=== PATIENT | female | born 1945 | race African-American/Black ===

== ENCOUNTER 2019-04-13 11:35 | Inpatient (IN) | payer MEDICARE, MEDICAID ==
[~2019-04-13] VITALS: Ht 167.6 cm; Wt 97.4 kg
[2019-04-13 12:54] VITALS: BP 140/79
[2019-04-13 13:43] LABS: ANION GAP 12.5 mmol/L (8-16); CALCIUM 8.8 mg/dL (8.5-10.1); CARBON DIOXIDE 28.1 mmol/L (21.0-32.0); CREATININE - SERUM 1.3 mg/dL (0.6-1.3); POTASSIUM - SERUM 4.6 mmol/L (3.5-5.1)
[2019-04-13 13:45] LABS: BASOPHILS 0.3 % (0-2); EOSINOPHILS 2.4 % (0-7); HEMATOCRIT 26.9 % (36.0-48.0); IMMATURE GRANULOCYTES 0.3 % (0-5); LYMPHOCYTES 12.4 % (15-50); MCHC 27.9 g/dL (31.0-37.0); MCV 70.6 fL (80.0-100.0); MEAN PLATELET VOLUME 9.5 fL (7.4-10.4); MONOCYTES 14.1 % (2-11); NEUTROPHILS 70.5 % (40-80); PLATELET COUNT 443 10x3/uL (130-400); RBC 3.81 10x6/uL (4.00-5.40); RDW 18.4 % (11.5-14.5); WBC 14.4 10x3/uL (4.8-10.8)
[2019-04-13 13:47] LABS: % SATURATION 3 % (15-55); HEMOGLOBIN 7.5 g/dL (12-16); IRON 11 ug/dl (35-150); MCH 19.7 pg (26.0-34.0); TOTAL IRON BIND CAPACITY 323 ug/dl (260-445); UNSAT IRON BIND CAPACITY 312 ug/dl (150-375)
[2019-04-13 13:51] LABS: ALBUMIN 2.6 g/dL (3.4-5.0); BILIRUBIN - TOTAL 0.17 mg/dL (0.2-1.3); DIGOXIN 1.27 ng/mL (0.90-2.00); PROTEIN - SERUM 7.9 g/dL (6.4-8.2)
--- NOTE | 2019-04-13 14:03 | NUR ---
VASCULAR ACCESS NURSE OBTAINED IV SITE TO PT LEFT WRIST, START NEXT DOSE ON PT HOME MEDS PT STATED SHE HAS ALREADY TAKEN MEDS AT HOME. START ABX CONTINUE WITH PLAN OF CARE
[2019-04-13 14:08] VITALS: BMI 35.1
[2019-04-13 14:18] LABS: FERRITIN 113 ng/mL (3-244)
--- NOTE | 2019-04-13 14:54 | NUR ---
STARTED BLOOD INFUSION PT TOLERATING WELL CONTINUE TO MONITOR
--- NOTE | 2019-04-13 20:00 | NUR ---
A/O WITH NO SIGNS OF DISTRESS. IV TO THE LT WRIST WITH NO REDNESS OR SWELLLING NOTED. SECOND UNIT OF BLOOD STILL INFUSING. OBTAINED CONSENTS AND PLACED IN CHART FOR PROCEDURE TOMMORROW. CALLED NUNO FOR PAIN MED DUE TO PT COMPLAINING OF ABDOMENAL PAIN. DENIES NO OTHER NEEDS AT THIS TIME. CONTINUE PLAN OF CARE.
[2019-04-13 20:31] VITALS: BP 154/50
--- NOTE | 2019-04-13 21:15 | NUR ---
SECOND UNIT OF BLOOD FINISHED INFUSING. VS ARE STABLE AND DENIES NO SYMPTOMS. STARTED IRON INFUSION. DENIES NO NEEDS AT THIS TIME. CONTINUE PLAN OF CARE.
[2019-04-13 23:23] LABS: APPEARANCE CLEAR (CLEAR); COLOR YELLOW (YELLOW)
[2019-04-13 23:24] LABS: BILIRUBIN NEGATIVE (NEGATIVE); GLUCOSE NEGATIVE (NEGATIVE); KETONE NEGATIVE (NEGATIVE); NITRITE NEGATIVE (NEGATIVE); PROTEIN NEGATIVE (NEGATIVE); SPECIFIC GRAVITY 1.015 (1.005-1.020); UROBILINOGEN NORMAL (NORMAL)
[2019-04-14 00:22] VITALS: BP 130/52
[2019-04-14 03:58] VITALS: BP 137/59
[2019-04-14 06:24] LABS: BASOPHILS 0.3 % (0-2); EOSINOPHILS 1.5 % (0-7); HEMATOCRIT 30.1 % (36.0-48.0); IMMATURE GRANULOCYTES 0.3 % (0-5); LYMPHOCYTES 13.1 % (15-50); MCHC 30.2 g/dL (31.0-37.0); MEAN PLATELET VOLUME 9.6 fL (7.4-10.4); MONOCYTES 14.3 % (2-11); NEUTROPHILS 70.5 % (40-80); PLATELET COUNT 360 10x3/uL (130-400); RBC 4.14 10x6/uL (4.00-5.40); RDW 18.9 % (11.5-14.5); WBC 13.7 10x3/uL (4.8-10.8)
[2019-04-14 06:27] LABS: INR 1.37 (0.85-1.17); PROTIME 16.3 SECONDS (11.6-15.0)
[2019-04-14 06:28] LABS: APTT 45.3 SECONDS (22.8-39.4)
[2019-04-14 06:33] LABS: HEMOGLOBIN 9.1 g/dL (12-16); MCV 72.7 fL (80.0-100.0)
[2019-04-14 06:41] LABS: CALCIUM 8.4 mg/dL (8.5-10.1); CARBON DIOXIDE 29.1 mmol/L (21.0-32.0); CREATININE - SERUM 0.9 mg/dL (0.6-1.3); MAGNESIUM - SERUM 1.9 mg/dL (1.8-2.4); PHOSPHOROUS 3.8 mg/dL (2.5-4.9); POTASSIUM - SERUM 4.1 mmol/L (3.5-5.1); THYROID STIMULATING HORMONE 1.65 uIU/mL (0.36-3.74)
--- NOTE | 2019-04-14 07:31 | NUR ---
PT RESTING IN BED. NO SIGNS OF DISTRESS, IV TO LEFT WRIST PATENT NO REDNESS OR TENDERNESS. AWAITING EGD TODAY. DENIES ANY FURTHER NEED AT THIS TIME. CALL LIGHT IN REACH. BED LOW POSITION. NO FAMILY AT BEDSIDE AT THIS TIME. NO FAMILY AT BEDSIDE AT THIS TIME.
[2019-04-14 09:13] VITALS: BP 143/52
[2019-04-14 12:26] VITALS: BP 140/53
[2019-04-14 14:05] VITALS: BMI 35.0
--- NOTE | 2019-04-14 14:41 | MORECARE ---
CASE MANAGEMENT DISCHARGE SUMMARY PATIENT: GRZEGORZ DURÁN UNIT: [id number] ADM DATE: 04/13/19 AGE: 73 : 46 SEX: F ROOM/BED: D.2237 AUTHOR: LETICIA,DOC PHYSICIAN: REFERRING PHYSICIAN: YENNY STRINGER MD DATE OF SERVICE: 04/14/19 Discharge Plan Patient Name: GRZEGORZ DURÁN Facility: [facility]:[place] : 1945 Planned Disposition: Home Anticipated Discharge Date: Discharge Date: Expected LOS: Initial Reviewer: [email or web address] Initial Review Date: 04/14/2019 Generated: 04/14/19 3:41 pm Comments DCP- Discharge Planning Updated by [email or web address]: Divina Hastings on 04/14/19 1:[address] Patient Name: GRZEGORZ DURÁN Admission Status: Elective Accout number: [id number] Admission Date: 04-13-2019 : 1945 Admission Diagnosis: Attending: YENNY STRINGER Current LOS: 1 Anticipated DC Date: Planned Disposition: Home Primary Insurance: WELL[employer] MEDICARE ADV Discharge Planning Comments: CM met with patient to complete initial dc planning assessment. CM educated patient on the CM role and verbal consent given by patient to complete assessment. Patient lives at home with her sister. At discharge she plans to return home and feels this is a safe discharge. CM discussed availability of home health, rehab and additional DME. Patient denied known discharge needs at this time. CM will continue to follow and assist with dc plans/needs. Cartography Teacher: Divina Hastings DCPIA - Discharge Planning Initial Assessment Updated by [email or web address]: Divina Hastings on 04/14/19 2:35 pm * Is the patient Alert and Oriented? Yes * How many steps to enter\exit or inside your home? 5/0 * PCP Dr. Raymond * Pharmacy [facility] [address] * Preadmission Environment Home with Family * ADLs Independent * Equipment Cane Other * Other Equipment Built in shower bench in shower * List name and contact numbers for known caregivers / representatives who currently or will assist patient after discharge: Claire Gusman - sister - [phone] * Verbal permission to speak to the caregivers and representatives has been obtained from the patient. Yes * Community resources currently utilized None * Additional services required to return to the preadmission environment? No * Can the patient safely return to the preadmission environment? Yes * Has this patient been hospitalized within the prior 30 days at any hospital? No Patient Name: GRZEGORZ DURÁN Page [phone] at 1441 All edits/amendments must be made on the electronic document DICTATION DATE: 04/14/191440 MANAGER DISCOVERY: LUCY 04/14/19 1441 RPT#: [id number] DC DATE: STATUS: ADM IN [facility] [address] [place] [address] END OF REPORT
[2019-04-14 16:22] VITALS: BP 139/49
[2019-04-14 19:30] VITALS: BP 145/70
[2019-04-15 00:30] VITALS: BP 138/67
--- NOTE | 2019-04-15 00:31 | NUR ---
ASSESSMENT PER FLOWSHEET. IV PATENT LEFT WRIST OF NS AT 75CC'S/HR PROTONIX GTT AT 10CC'S/HR. SITE CLEAR UPWA=104. NO COVERAGE NEEDED. RESTING QUIETLY DENIES NEEEDS.
[2019-04-15 04:30] VITALS: BP 124/60
[2019-04-15 07:07] LABS: CALCIUM 8.5 mg/dL (8.5-10.1); CARBON DIOXIDE 27.7 mmol/L (21.0-32.0); CREATININE - SERUM 0.9 mg/dL (0.6-1.3); MAGNESIUM - SERUM 1.8 mg/dL (1.8-2.4); PHOSPHOROUS 3.4 mg/dL (2.5-4.9)
[2019-04-15 07:27] LABS: BASOPHILS 0.4 % (0-2); EOSINOPHILS 2.4 % (0-7); HEMOGLOBIN 8.5 g/dL (12-16); IMMATURE GRANULOCYTES 0.4 % (0-5); LYMPHOCYTES 14.2 % (15-50); MCH 21.4 pg (26.0-34.0); MCHC 29.3 g/dL (31.0-37.0); MCV 72.9 fL (80.0-100.0); MEAN PLATELET VOLUME 9.7 fL (7.4-10.4); MONOCYTES 17.1 % (2-11); NEUTROPHILS 65.5 % (40-80); PLATELET COUNT 361 10x3/uL (130-400); RBC 3.98 10x6/uL (4.00-5.40); RDW 19.5 % (11.5-14.5); WBC 14.1 10x3/uL (4.8-10.8)
--- NOTE | 2019-04-15 07:54 | NUR ---
PT RESTING IN BED WITH EYES OPEN, EASILY AROUSED TO SPEECH, ALERT AND ORIENTED. IV LOCATED TO LEFT WRIST RUNNING NS @ 75, AND PROTONIX AT 10ML/HR. NO S/S OF DISTRESS NOTED AT THIS TIME, DENIES NEEDS, WILL CONT TO MONITOR.
[2019-04-15 07:59] LABS: ANION GAP 12.9 mmol/L (8-16); POTASSIUM - SERUM 3.6 mmol/L (3.5-5.1)
[2019-04-15 09:02] VITALS: BP 143/53
[2019-04-15 13:07] VITALS: BP 145/75
[2019-04-15 16:45] VITALS: BP 145/71; BP 170/61
--- NOTE | 2019-04-15 19:00 | NUR ---
BEDSIDE REPORT RECEIVED AND CARE OF PT ASSUMED. PT LYING IN HIGH LYONS'S POSITION VISITING WITH FAMILY MEMBERS. IV TO LEFT WRIST PATENT WITH NS INFUSING AT 75 ML/HR, AND PROTONIX INFUSING AT 10 ML/HR. WILL MONITOR FOR NEEDS.
[2019-04-15 19:30] VITALS: BP 170/67
[2019-04-16] VITALS: BP 123/59
[2019-04-16 04:00] VITALS: BP 157/65
--- NOTE | 2019-04-16 04:36 | NUR ---
CHANGED OUT ALL IV TUBINGS PER PROTOCAL.
--- NOTE | 2019-04-16 05:26 | NUR ---
LEFT WRIST SWELLING WHERE IV SITED. REMOVED WITH CATHETER TIP INTACT. RE-SITED TO RIGHT HAND USING 22 GUAGE CATHETER. IV FLUIDS RE-STARTED.
--- NOTE | 2019-04-16 05:27 | NUR ---
GAVE MORPHINE IVP FOR C/O ARTHRITIS PAIN IN RIGHT FOOT. ELEVATED FOOT ON PILLOW. WILL MONITOR FOR EFFECTIVENESS.
[2019-04-16 06:44] LABS: BASOPHILS 0.2 % (0-2); HEMATOCRIT 28.2 % (36.0-48.0); HEMOGLOBIN 8.3 g/dL (12-16); IMMATURE GRANULOCYTES 0.4 % (0-5); LYMPHOCYTES 10.9 % (15-50); MCH 21.7 pg (26.0-34.0); MCHC 29.4 g/dL (31.0-37.0); MCV 73.6 fL (80.0-100.0); MEAN PLATELET VOLUME 9.6 fL (7.4-10.4); MONOCYTES 14.1 % (2-11); NEUTROPHILS 72.4 % (40-80); PLATELET COUNT 323 10x3/uL (130-400); RBC 3.83 10x6/uL (4.00-5.40); RDW 19.9 % (11.5-14.5); WBC 16.3 10x3/uL (4.8-10.8)
[2019-04-16 07:04] LABS: ANION GAP 13.2 mmol/L (8-16); CALCIUM 8.5 mg/dL (8.5-10.1); CARBON DIOXIDE 25.7 mmol/L (21.0-32.0); CREATININE - SERUM 0.9 mg/dL (0.6-1.3); MAGNESIUM - SERUM 1.7 mg/dL (1.8-2.4); PHOSPHOROUS 3.2 mg/dL (2.5-4.9); POTASSIUM - SERUM 3.9 mmol/L (3.5-5.1)
[2019-04-16 08:07] VITALS: BP 133/58
[2019-04-16 12:58] VITALS: BP 142/60
[2019-04-16 13:07] VITALS: Ht 167.6 cm; Wt 97.4 kg
--- NOTE | 2019-04-16 13:51 | NUR ---
NUTRITION F/U PT TOLERATING FULL LIQUID DIET WITH GOOD INTAKE RECENT MEALS. WILL MONITOR DIET ADVANCEMENT, PO INTAKE. RD FOLLOWING
[2019-04-16 17:43] VITALS: BP 137/61
--- NOTE | 2019-04-16 19:00 | NUR ---
BEDSIDE REPORT RECEIVED AND CARE OF PT ASSUMED. PT LYING IN SUPINE POSITION WITH EYES CLOSED. IV TO RIGHT HAND PATENT WITH NS INFUSING AT 75 ML/HR, AND PROTONIX INFUSING AT 10 ML/HR. WILL MONITOR FOR NEEDS.
[2019-04-16 20:00] VITALS: BP 138/65
--- NOTE | 2019-04-16 20:38 | NUR ---
HS MEDICATIONS GIVEN. FSBS 179 REQUIRING COVERAGE WITH SLIDING SCALE...PT DECLINED INSULIN. WILL CONTINUE TO MONITOR FOR NEEDS.
[2019-04-17] VITALS: BP 121/71
[2019-04-17 04:00] VITALS: BP 112/46
[2019-04-17 07:17] LABS: BASOPHILS 0.2 % (0-2); EOSINOPHILS 1.3 % (0-7); HEMATOCRIT 28.4 % (36.0-48.0); HEMOGLOBIN 8.3 g/dL (12-16); IMMATURE GRANULOCYTES 0.6 % (0-5); LYMPHOCYTES 10.6 % (15-50); MCH 21.7 pg (26.0-34.0); MCHC 29.2 g/dL (31.0-37.0); MCV 74.3 fL (80.0-100.0); MEAN PLATELET VOLUME 9.5 fL (7.4-10.4); MONOCYTES 13.6 % (2-11); NEUTROPHILS 73.7 % (40-80); PLATELET COUNT 295 10x3/uL (130-400); RBC 3.82 10x6/uL (4.00-5.40); RDW 21.2 % (11.5-14.5)
[2019-04-17 07:23] LABS: CALC OSMOLALITY 284 mosm/kg (275-300); CALCIUM 8.3 mg/dL (8.5-10.1); CARBON DIOXIDE 26.8 mmol/L (21.0-32.0); CHLORIDE - SERUM 110 mmol/L (98-107); CREATININE - SERUM 0.7 mg/dL (0.6-1.3); GLUCOSE 121 mg/dL (74-106); MAGNESIUM - SERUM 1.7 mg/dL (1.8-2.4); PHOSPHOROUS 2.9 mg/dL (2.5-4.9); POTASSIUM - SERUM 3.7 mmol/L (3.5-5.1); SODIUM 144 mmol/L (136-145); UREA NITROGEN 5 mg/dL (7-18); eGFR NON AFRICAN AMERICAN 87 mL/min (90-120)
[2019-04-17 08:45] VITALS: BP 133/49
--- NOTE | 2019-04-17 10:43 | NUR ---
PT ALERT X 4. BREATH SOUNDS DIMINISHED TO RLL. IV TO RIGHT HAND, PATENT, DRESSING CDI. PT REPORTING PAIN OF 8/10 TO RIGHT FOOT, WILL MONITOR. BED LOW, CALL LIGHT IN REACH. NO OTHER NEEDS AT THIS TIME.
[2019-04-17 12:32] VITALS: BP 142/59
[2019-04-17 16:43] VITALS: BP 155/68
--- NOTE | 2019-04-17 19:00 | NUR ---
BEDSIDE REPORT RECEIVED AND CARE OF PT ASSUMED. PT LYING IN MID LYONS'S POSITION WITH EYES CLOSED. IV TO RIGHT HAND PATENT WITH NS INFUSING AT 75 ML/HR. PROTONIX INFUSING AT 10 ML/HR. WILL MONITOR FOR NEEDS.
[2019-04-17 19:57] VITALS: BP 112/58
--- NOTE | 2019-04-17 20:16 | NUR ---
HS MEDICATIONS GIVEN. FSBS 107 THIS CHECK REQUIRING NO COVERAGE PER SLIDING SCALE. WILL CONTINUE TO MONITOR FOR NEEDS.
[2019-04-18] MEDS ORDERED: PROTONIX40 MG PO (02:15)
[2019-04-18] MEDS ORDERED: ZOFRAN ODT4 MG/UDTAB PO (02:15)
[2019-04-18] MEDS ORDERED: BUMEX2 MG PO (02:16)
[2019-04-18] MEDS ORDERED: LANOXIN125 MCG PO (02:16)
[2019-04-18] MEDS ORDERED: GLUCOPHAGE1000 MG PO (02:16)
[2019-04-18] MEDS ORDERED: JANUVIA100 MG PO (02:17)
[2019-04-18] MEDS ORDERED: PRADAXA75 MG PO (02:17)
[2019-04-18] MEDS ORDERED: HYDROCHLOROTHIA25 MG PO (02:18)
[2019-04-18] MEDS ORDERED: DIOVAN320 MG PO (02:18)
[2019-04-18] MEDS ORDERED: NORVASC10 MG PO (02:19)
[2019-04-18] MEDS ORDERED: GLUCOTROL XL 1010 MG PO (02:19)
[2019-04-18] MEDS ORDERED: HYDRALAZINE HCL50 MG PO (02:19)
[2019-04-18] MEDS ORDERED: [UNRECOGNIZED DRUG - SUPPLY] (02:21)
--- NOTE | 2019-04-18 02:22 | NUR ---
PT NEEDS HOME MEDS REVIEWED AND RE-STARTED. SHE IS REQUESTING UPDRAFT TREATMENT AND BUMEX 2 MG PO SPECIFICALLY DUE TO FEELING LIKE SHE IS GETTING FLUID OVERLOAD. HOME MEDICATION RECONCILIATION COMPLETE AND REVIEWED. PT DID NOT HAVE UPDRAFT MEDICATION ON HER RECENT FILLED MEDICATION.
[2019-04-18 04:00] VITALS: BP 107/49
[2019-04-18 06:45] LABS: BASOPHILS 0.2 % (0-2); EOSINOPHILS 1.5 % (0-7); HEMATOCRIT 28.6 % (36.0-48.0); HEMOGLOBIN 8.4 g/dL (12-16); IMMATURE GRANULOCYTES 0.3 % (0-5); MCH 21.9 pg (26.0-34.0); MCHC 29.4 g/dL (31.0-37.0); MCV 74.7 fL (80.0-100.0); MEAN PLATELET VOLUME 9.6 fL (7.4-10.4); MONOCYTES 12.4 % (2-11); NEUTROPHILS 75.6 % (40-80); PLATELET COUNT 288 10x3/uL (130-400); RBC 3.83 10x6/uL (4.00-5.40); RDW 22.3 % (11.5-14.5); WBC 18.3 10x3/uL (4.8-10.8)
[2019-04-18 07:14] LABS: ANION GAP 12.8 mmol/L (8-16); CALCIUM 8.5 mg/dL (8.5-10.1); CARBON DIOXIDE 25.6 mmol/L (21.0-32.0); MAGNESIUM - SERUM 1.8 mg/dL (1.8-2.4); PHOSPHOROUS 2.6 mg/dL (2.5-4.9); POTASSIUM - SERUM 3.4 mmol/L (3.5-5.1)
[2019-04-18 07:16] LABS: CREATININE - SERUM 0.9 mg/dL (0.6-1.3)
[2019-04-18 07:59] VITALS: BP 136/64
--- NOTE | 2019-04-18 09:10 | NUR ---
PT ALERT X 4. BREATH SOUNDS CLEAR BILAT. IV TO RIGHT HAND, PATENT, DRESSING CDI. PT REPORTING PAIN OF 6/10, WILL MONITOR, PT DOES NOT WANT MEDICATION AT THIS TIME. FEET +2 EDEMA. BED LOW, CALL LIGHT IN REACH. NO OTHER NEEDS AT THIS TIME.
[2019-04-18 11:39] VITALS: BP 119/50
[2019-04-18 16:31] VITALS: BP 127/50
--- NOTE | 2019-04-18 19:00 | NUR ---
BEDSIDE REPORT RECEIVED AND CARE OF PT ASSUMED. PT SITTING UP ON SIDE OF BED WATCHING TV. IV TO RIGHT HAND PATENT WITH NS INFSUING AT 75 ML/HR. WILL MONITOR FOR NEEDS.
[2019-04-18 20:00] VITALS: BP 118/71
--- NOTE | 2019-04-18 20:00 | NUR ---
PT'S HEARTRATE IN 159 THIS CHECK. CALLED MD BANANA ROOM CUTTER AND RECEIVED ORDER TO GIVE .25 MG LANOXIN NOW AND RESTART HOME DOSE OF 0.125 DAILY TOMORROW. ALSO ORDER TO GIVE ONE TIME DOSE OF METOPROLOL 25 MG PO. CALLED [employer]CHOOL FRENCH TEACHER TO OVERRIDE MEDS.
--- NOTE | 2019-04-18 21:35 | NUR ---
HS MEDICATIONS GIVEN. WILL CONTINUE TO MONITOR FOR NEEDS.
[2019-04-19] VITALS (11 sets, daily range): BP systolic 126–161; BP diastolic 41–68
[2019-04-19 06:01] LABS: BASOPHILS 0.2 % (0-2); EOSINOPHILS 1.5 % (0-7); HEMATOCRIT 27.4 % (36.0-48.0); HEMOGLOBIN 7.9 g/dL (12-16); IMMATURE GRANULOCYTES 0.6 % (0-5); LYMPHOCYTES 10.4 % (15-50); MCH 21.6 pg (26.0-34.0); MCHC 28.8 g/dL (31.0-37.0); MCV 75.1 fL (80.0-100.0); MEAN PLATELET VOLUME 9.7 fL (7.4-10.4); MONOCYTES 11.4 % (2-11); NEUTROPHILS 75.9 % (40-80); PLATELET COUNT 301 10x3/uL (130-400); RBC 3.65 10x6/uL (4.00-5.40); WBC 15.2 10x3/uL (4.8-10.8)
[2019-04-19 06:25] LABS: ANION GAP 9.9 mmol/L (8-16); BILIRUBIN - TOTAL 0.34 mg/dL (0.2-1.3); CALCIUM 8.1 mg/dL (8.5-10.1); CARBON DIOXIDE 28.7 mmol/L (21.0-32.0); CREATININE - SERUM 0.8 mg/dL (0.6-1.3); POTASSIUM - SERUM 3.6 mmol/L (3.5-5.1); PROTEIN - SERUM 7.2 g/dL (6.4-8.2)
--- NOTE | 2019-04-19 10:42 | NUR ---
PATIENT STATES SHE HAS A FEVER BLISTER TO THE TOP MID LIP. BLOOD STARTED AT THIS TIME. CL IN REACH. PHONE IN REACH. PATIENT SAYS SHE'D JUST LIKE TO REST. WCTM
--- NOTE | 2019-04-19 12:47 | NUR ---
OT NOTE: PT LIEING IN BED. REPORTED PAIN AND SWELLING IN R FOOT, BUT STATES THAT SHE CAN PUT A LITTLE WT THROUGH IT NOW, WHICH SHE HAS BEEN UNABLE TO DO BECAUSE OF PAIN. PT ABLE TO DEMONSTRATE SIT TO STAND WITH CGA; ABLE TO DEMONSTRATE TRANSFER FROM BED TO BS COMMODE WITH SBA. PT ABOUT TO RECEIVE BLOOD THEREFORE WILL REMAIN IN BED VS TRANSFER TO CHAIR. SATISH FENG, OTR/L
--- NOTE | 2019-04-19 16:36 | NUR ---
SECOND UNIT OF BLOOD STARTED. VS STABLE. WCTM
--- NOTE | 2019-04-19 16:40 | NUR ---
IV THERAPY IN RIGHT HAND LEAKING. IV THERAPY RESTARTED IN RIGHT FOREARM. ONE ATTEMPT. RIGHT HAND IV DC'ED WITH TIP INTACT.
--- NOTE | 2019-04-19 18:15 | NUR ---
OT NOTE: PT COMPLETED EOB SITTING WITH SPV. PT COMPLETED SIT TO SUPINE WITH SBA. THANK YOU, ARNEL RILEY
[2019-04-20 01:15] VITALS: BP 139/79
[2019-04-20 04:44] VITALS: BP 148/71
--- NOTE | 2019-04-20 06:23 | NUR ---
I have reviewed this patient and I concur with the Shift Assessment completed by the Licensed Practical Nurse today this shift.
[2019-04-20 06:44] LABS: ANION GAP 11.1 mmol/L (8-16); BILIRUBIN - TOTAL 0.39 mg/dL (0.2-1.3); CALCIUM 8.2 mg/dL (8.5-10.1); CARBON DIOXIDE 27.3 mmol/L (21.0-32.0); CREATININE - SERUM 0.9 mg/dL (0.6-1.3); POTASSIUM - SERUM 3.4 mmol/L (3.5-5.1); PROTEIN - SERUM 7.2 g/dL (6.4-8.2)
[2019-04-20 07:05] LABS: BASOPHILS 0.2 % (0-2); EOSINOPHILS 1.5 % (0-7); HEMATOCRIT 31.9 % (36.0-48.0); IMMATURE GRANULOCYTES 0.4 % (0-5); LYMPHOCYTES 8.8 % (15-50); MCH 23.1 pg (26.0-34.0); MCHC 30.1 g/dL (31.0-37.0); MCV 76.9 fL (80.0-100.0); MEAN PLATELET VOLUME 10.1 fL (7.4-10.4); NEUTROPHILS 77.1 % (40-80); PLATELET COUNT 287 10x3/uL (130-400); RBC 4.15 10x6/uL (4.00-5.40); RDW 23.8 % (11.5-14.5); WBC 14.1 10x3/uL (4.8-10.8)
[2019-04-20 07:10] LABS: HEMOGLOBIN 9.6 g/dL (12-16)
--- NOTE | 2019-04-20 07:10 | NUR ---
PT RESTING IN BED. NO SIGNS OF DISTRESS. IV TO RIGHT FORARM PATENT NO REDNESS OR TENDERNESS. DENIES ANY FURTHER NEED AT THIS TIME. CALL LIGHT IN REACH. BED LOW POSITION. NO FAMILY AT BEDSIDE AT THIS TIME.
[2019-04-20 08:35] VITALS: BP 149/68
[2019-04-20 12:15] VITALS: BP 166/91
[2019-04-20 16:51] VITALS: BP 133/74
--- NOTE | 2019-04-20 17:51 | NUR ---
OT NOTE: PT REPORTED FEELING LESS PAIN IN R LE TODAY. PERFORMED SIT TO STAND AND TRANSFER WITH MIN ASSIST. ASKED IF PT WANTED TO SIT UP IN CHAIR AND SHE STATED NO BECAUSE SHE SITS UP ON EOB THROUGHOUT THE DAY. SHE IS INDEP WITH ALL BED MOB; SET UP WITH FEEDING AND SIMPLE GROOMING AND MIN ASSIST WITH TOILETING. SATISH FENG, OTR/L
--- NOTE | 2019-04-20 18:16 | NUR ---
I have reviewed this patient and I concur with the Shift Assessment completed by the Licensed Practical Nurse today this shift.
--- NOTE | 2019-04-20 19:25 | NUR ---
OT NOTE: PT COMPLETED SUPINE TO SIT WITH SBA. PT COMPLETED SIT TO STAND WITH SBA/CGA WITH CANE. PT COMPLETED FACE WASH WITH SETUP. THANK YOU, ARNEL RILEY
[2019-04-20 20:48] VITALS: BP 136/80
[2019-04-21 00:59] VITALS: BP 155/59
--- NOTE | 2019-04-21 05:05 | NUR ---
1944) REC'D. CHGE OF SHIFT WALKING ROUNDS SITTING ON SIDE OF BED ASSISTED TO BEDSIDE CHAIR FEET ELEVATED INSTRUCTED BY TO HELP REDUCE SWELLING INFEET.VOICES UBDERSTANDING.WILL CONTINUE TO MONITOR FOR ANY CHGES. AND FOLLOW CURRENT PLAN OF CARE.
[2019-04-21 05:12] VITALS: BP 140/86
--- NOTE | 2019-04-21 06:05 | NUR ---
I have reviewed this patient and I concur with the Shift Assessment completed by the Licensed Practical Nurse today this shift.
[2019-04-21 06:32] LABS: ANION GAP 9.9 mmol/L (8-16); BILIRUBIN - TOTAL 0.34 mg/dL (0.2-1.3); CALCIUM 8.3 mg/dL (8.5-10.1); CARBON DIOXIDE 28.4 mmol/L (21.0-32.0); CREATININE - SERUM 0.8 mg/dL (0.6-1.3); POTASSIUM - SERUM 3.3 mmol/L (3.5-5.1); PROTEIN - SERUM 7.2 g/dL (6.4-8.2)
[2019-04-21 06:41] LABS: BASOPHILS 1.1 % (0-2); EOSINOPHILS 1.9 % (0-7); HEMATOCRIT 32.3 % (36.0-48.0); HEMOGLOBIN 9.6 g/dL (12-16); IMMATURE GRANULOCYTES 0.4 % (0-5); LYMPHOCYTES 12.9 % (15-50); MCH 23.1 pg (26.0-34.0); MCHC 29.7 g/dL (31.0-37.0); MCV 77.8 fL (80.0-100.0); MEAN PLATELET VOLUME 9.7 fL (7.4-10.4); NEUTROPHILS 69.7 % (40-80); PLATELET COUNT 293 10x3/uL (130-400); RBC 4.15 10x6/uL (4.00-5.40); RDW 24.9 % (11.5-14.5); WBC 17.1 10x3/uL (4.8-10.8)
[2019-04-21 08:37] VITALS: BP 150/81
[2019-04-21 11:59] VITALS: BP 158/90
[2019-04-21 13:53] LABS: APPEARANCE CLEAR (CLEAR); BILIRUBIN NEGATIVE (NEGATIVE); COLOR YELLOW (YELLOW); GLUCOSE NEGATIVE (NEGATIVE); KETONE NEGATIVE (NEGATIVE); NITRITE NEGATIVE (NEGATIVE); PROTEIN NEGATIVE (NEGATIVE); UROBILINOGEN NORMAL (NORMAL)
--- NOTE | 2019-04-21 14:01 | NUR ---
NUTRITION F/U DIET ADVANCED TO DIABETIC, 50 TO 100% INTAKE RECENT MEALS. WILL CONTINUE TO PROVIDE CURRENT DIET, MONITOR PO INTAKE. RD FOLLOWING
--- NOTE | 2019-04-21 15:26 | NUR ---
OT NOTE: PT UP IN CHAIR. SHE WAS IN [facility] AND SHE HAD ON HER WIG. ASSISTED TO BATHROOM WITH CANE AND CGA. TOILETING WITH USE OF GRAB BAR. PERFORMED IN ROOM AMBULATION WITH CAN. PT IS UNSTEADY WITH CANE BUT REFUSES TO USE WALKER. OFFERED WALKER SEVERAL TIMES THROUGHOUT TMT BUT PT REFUSED IT TODAY. CONT WITH EDEMA IN R FOOT. INDEP WITH GROOMING AND FEEDING.. SATISH FENG, OTR/L
--- NOTE | 2019-04-21 15:48 | NUR ---
OT NOTE: PT COMPLETED ADL MOB WITH CANE REQUIRED CGA. PT COMPLETED EOB SITTING WITH SPV. PT COMPLETED TOILETING TASKS WITH SPV. THANK YOU, ARNEL RILEY
[2019-04-21 16:23] VITALS: BP 141/78
[2019-04-21 17:34] LABS: MAGNESIUM - SERUM 1.2 mg/dL (1.8-2.4); THYROID STIMULATING HORMONE 1.73 uIU/mL (0.36-3.74)
[2019-04-21 21:12] VITALS: BP 143/71
[2019-04-22 01:47] VITALS: BP 157/68
[2019-04-22 06:22] VITALS: BP 141/76
[2019-04-22 06:44] LABS: HEMATOCRIT 33.3 % (36.0-48.0); HEMOGLOBIN 9.9 g/dL (12-16); MCH 23.4 pg (26.0-34.0); MCHC 29.7 g/dL (31.0-37.0); MCV 78.7 fL (80.0-100.0); MEAN PLATELET VOLUME 10.1 fL (7.4-10.4); PLATELET COUNT 318 10x3/uL (130-400); RBC 4.23 10x6/uL (4.00-5.40); RDW 26.1 % (11.5-14.5)
[2019-04-22 06:59] LABS: ANION GAP 10.7 mmol/L (8-16); BILIRUBIN - TOTAL 0.23 mg/dL (0.2-1.3); CALCIUM 8.2 mg/dL (8.5-10.1); CARBON DIOXIDE 27.9 mmol/L (21.0-32.0); CREATININE - SERUM 0.8 mg/dL (0.6-1.3); POTASSIUM - SERUM 3.6 mmol/L (3.5-5.1); PROTEIN - SERUM 7.6 g/dL (6.4-8.2)
[2019-04-22 07:31] LABS: EOSINOPHILS 2 % (0-7); LYMPHOCYTES 18 % (15-50); MONOCYTES 8 % (2-11); NEUTROPHILS 64 % (40-80); PLATELET ESTIMATE NORMAL
--- NOTE | 2019-04-22 09:36 | NUR ---
PT ALERT X 4. BREATH SOUNDS CLEAR BILAT. IV TO RIGHT FOREARM, PATENT, DRESSING CDI. PT REPORTING PAIN OF 6/10, PT DOES NOT WANT MEDICATION AT THIS TIME. +2 EDEMA TO BOTH FEET. PT SITTING UP IN CHAIR. BED LOW, CALL LIGHT IN REACH. NO OTHER NEEDS AT THIS TIME.
[2019-04-22 12:44] VITALS: BP 118/71
--- NOTE | 2019-04-22 14:59 | NUR ---
OT NOTE: PT COMPLETD SIT TO STAND WIT SBA. PT COMPLETED ADL MOB TASKS WITH SBA/CGA. PT COMPLETED UE AROM AXS. THANK YOU, ARNEL RILEY
--- NOTE | 2019-04-22 15:16 | NUR ---
OT NOTE: PT HAS BEEN VERY RESISTANT TO USE A WALKER. HER MOBILITY WITH CANE IS UNSAFE IN ROOM AND FOR LONGER DISTANCES. PT REFUSED TO USE WALKER TO GO INTO BATHROOM, HOWEVER, AGREED TO AMB INTO HALLWAY WITH IT.. SHE WAS MUCH SAFER AND MORE STEADY, AND WAS ABLE TO AMB GREATER THAN 75' WITH USE OF WALKER. SATISH FENG, OTR/L
[2019-04-22 15:39] VITALS: BP 129/57
[2019-04-22] MEDS ORDERED: BETAPACE 80 MG80 MG PO (20:47)
[2019-04-22 21:23] VITALS: BP 116/74
[2019-04-23 01:14] VITALS: BP 162/89
[2019-04-23 05:08] LABS: BASOPHILS 0.5 % (0-2); EOSINOPHILS 1.8 % (0-7); HEMATOCRIT 33.4 % (36.0-48.0); IMMATURE GRANULOCYTES 0.4 % (0-5); LYMPHOCYTES 12.9 % (15-50); MCH 23.8 pg (26.0-34.0); MCHC 29.9 g/dL (31.0-37.0); MCV 79.5 fL (80.0-100.0); MEAN PLATELET VOLUME 9.5 fL (7.4-10.4); MONOCYTES 12.6 % (2-11); NEUTROPHILS 71.8 % (40-80); PLATELET COUNT 279 10x3/uL (130-400); WBC 17.2 10x3/uL (4.8-10.8)
[2019-04-23 05:36] LABS: ALBUMIN 1.9 g/dL (3.4-5.0); ANION GAP 8.1 mmol/L (8-16); BILIRUBIN - TOTAL 0.3 mg/dL (0.2-1.3); CARBON DIOXIDE 30.2 mmol/L (21.0-32.0); CREATININE - SERUM 0.8 mg/dL (0.6-1.3); POTASSIUM - SERUM 3.3 mmol/L (3.5-5.1); PROTEIN - SERUM 7.5 g/dL (6.4-8.2)
[2019-04-23 06:01] VITALS: BP 170/84
--- NOTE | 2019-04-23 06:18 | NUR ---
POTASSIUM 3.3 - GAVE POTASSIUM 40 MEQ PO PER ELECTROLYTE PROTOCOL. RECHECK POTASSIUM IN 4 HOURS.
--- NOTE | 2019-04-23 07:15 | NUR ---
RIGHT FA IV INFILTRATED. DC'D RIGHT FA 20G IV WITH CATH INTACT. PLACED 22G IV IN RIGHT HAND ON FIRST ATTEMPT. PT TOLERATED PROCEDURE WELL.
[2019-04-23 07:41] VITALS: BP 145/69
[2019-04-23 11:17] LABS: INR 1.36 (0.85-1.17); PROTIME 16.2 SECONDS (11.6-15.0)
[2019-04-23 11:18] LABS: APTT 50.9 SECONDS (22.8-39.4)
--- NOTE | 2019-04-23 11:35 | NUR ---
EXPLAINED IVC FILTER PLACEMENT TO PT AND FAMILY AT BEDSIDE. ALL QUESTIONS ANSWERED. STATED TO PT SHE IS TO BE NPO UNTIL AFTER PROCEDURE AND SHE AND FAMILY BOTH VERBALIZED UNDERSTANDING. CONSENTS FOR PROCEDURE SIGNED.
--- NOTE | 2019-04-23 13:19 | MORECARE ---
CASE MANAGEMENT DISCHARGE SUMMARY PATIENT: GRZEGORZ DURÁN UNIT: [id number] ADM DATE: 04/13/19 AGE: 73 : 46 SEX: F ROOM/BED: D.2237 AUTHOR: CHELSI KELLY PHYSICIAN: REFERRING PHYSICIAN: YENNY STRINGER MD DATE OF SERVICE: 04/23/19 Discharge Plan Patient Name: GRZEGORZ DURÁN Facility: [facility]:[place] : 1945 Planned Disposition: Home Anticipated Discharge Date: Discharge Date: Expected LOS: Initial Reviewer: [email or web address] Initial Review Date: 04/14/2019 Generated: 04/23/19 2:18 pm Comments DCP- Discharge Planning Updated by [email or web address]: Diivna Hastings on 04/23/19 12:[address] Called to the room by patient's sister. Patient is sitting in the chair. Patient's sister states they want to know how to get transferred to [facility]. I asked her why she requests a transfer and she states that her "heart doctor is at [facility]." I informed her that she would need an accepting physician at [facility] and it would also be a lateral transfer and she would be responsible for the transportation if accepted. They do not request a transfer at this time. CM will continue to follow and assist with discharge planning/needs. DCP- Discharge Planning Updated by [id number]: Divina Hastings on 04/14/19 1:[address] Patient Name: GRZEGORZ DURÁN Admission Status: Elective Accout number: [id number] Admission Date: 04-13-2019 : 1945 Admission Diagnosis: Attending: YENNY STRINGER Current LOS: 1 Anticipated DC Date: Planned Disposition: Home Primary Insurance: WE[employer] MEDICARE ADV Discharge Planning Comments: CM met with patient to complete initial dc planning assessment. CM educated patient on the CM role and verbal consent given by patient to complete assessment. Patient lives at home with her sister. At discharge she plans to return home and feels this is a safe discharge. CM discussed availability of home health, rehab and additional DME. Patient denied known discharge needs at this time. CM will continue to follow and assist with dc plans/needs. Health And Wellness Coach: Divina Hastings DCPIA - Discharge Planning Initial Assessment Updated by [email or web address]: Divian Hastings on 04/14/19 2:35 pm * Is the patient Alert and Oriented? Yes * How many steps to enter\\exit or inside your home? 5/0 * PCP Dr. Raymond * Pharmacy [facility] [address] * Preadmission Environment Home with Family * ADLs Independent * Equipment Cane Other * Other Equipment Built in shower bench in shower * List name and contact numbers for known caregivers / representatives who currently or will assist patient after discharge: Claire Gusman [facility] [phone] * Verbal permission to speak to the caregivers and representatives has been obtained from the patient. Yes * Community resources currently utilized None * Additional services required to return to the preadmission environment? No * Can the patient safely return to the preadmission environment? Yes * Has this patient been hospitalized within the prior 30 days at any hospital? No Last DP export: 04/14/19 1:41 Patient Name: GRZEGORZ DURÁN Page [id number] at 1319 All edits/amendments must be made on the electronic document DICTATION DATE: 04/23/19 131 ARTIFICIAL PLASTIC EYE MAKER: LUCY 04/23/19 1318 RPT#: [id number] [place] DATE: STATUS: ADM IN [facility] [address] [place] [address] END OF REPORT
--- NOTE | 2019-04-23 13:25 | NUR ---
PT TAKEN FOR PROCEDURE VIA BED.
--- NOTE | 2019-04-23 13:47 | NUR ---
OT NOTE: HOLD SECONDARY TO PT PLACED ON BEDREST. SATISH FENG, OTR/L
--- NOTE | 2019-04-23 14:21 | NUR ---
I have reviewed this patient and I concur with the Shift Assessment completed by the Licensed Practical Nurse today this shift.
--- NOTE | 2019-04-23 14:22 | NUR ---
PT RETURNED FROM IR VIA BED. IR NURSE STATES THEY WERE UNABLE TO DO IVC FILTER PLACEMENT D/T PT GOING INTO AFIB IN THE 140'S. SHE STATES THEY WILL CONSULT CARDIOLOGY AND PUT IN AN ORDER FOR AN EKG. THEY ALSO STATED THEY SPOKE WITH DR. ACEVEDO. TELEMETRY PLACED ON PT. WILL CONTINUE TO MONITOR. PT IS ALERT AND ORIENTED AND ASYMPTOMATIC. IR NURSE STATES COMPLETE BEDREST NO BATHROOM PRIVILEGES.
--- NOTE | 2019-04-23 14:23 | NUR ---
IR RESTARTED IV IN LEFT FA 22G IV AND DC'D 22G IV IN RIGHT HAND.
--- NOTE | 2019-04-23 15:00 | NUR ---
PT REQUESTING ALMODOVAR CATHETER SINCE SHE FREQUENTLY HAS TO USE THE RESTRROM AND IS ON COMPLETE BEDREST. SPOKE WITH DR. ACEVEDO AND HE STATES TO ORDER ONE.
--- NOTE | 2019-04-23 15:21 | NUR ---
PLACED 16 TAMAZIGHT ALMODOVAR CATHETER ON FIRST TRY. PT TOLERATED WELL.
[2019-04-23 15:24] VITALS: BP 132/75
[2019-04-23 21:16] VITALS: BP 153/84
--- NOTE | 2019-04-23 23:00 | NUR ---
ASSISTED PT UP TO BEDSIDE COMMODE TO HAVE BM. LE'S WEAK - 2 PERSON ASSIST JUST TO PIVOT FROM BED TO BSC AND BACK. NO OTHER NEEDS. WILL REASSESS AND CONTINUE TO MONITOR.
[2019-04-24 00:57] VITALS: BP 178/88
[2019-04-24 05:00] VITALS: BP 154/80
[2019-04-24 06:32] LABS: HEMATOCRIT 32.7 % (36.0-48.0); HEMOGLOBIN 9.7 g/dL (12-16); MCH 23.6 pg (26.0-34.0); MCHC 29.7 g/dL (31.0-37.0); MCV 79.6 fL (80.0-100.0); MEAN PLATELET VOLUME 10.1 fL (7.4-10.4); PLATELET COUNT 224 10x3/uL (130-400); RBC 4.11 10x6/uL (4.00-5.40); RDW 27.9 % (11.5-14.5); WBC 16.5 10x3/uL (4.8-10.8)
[2019-04-24 06:44] LABS: ALBUMIN 1.9 g/dL (3.4-5.0); ANION GAP 11.5 mmol/L (8-16); BILIRUBIN - TOTAL 0.41 mg/dL (0.2-1.3); CALCIUM 8.2 mg/dL (8.5-10.1); CARBON DIOXIDE 28.1 mmol/L (21.0-32.0); CREATININE - SERUM 0.9 mg/dL (0.6-1.3); POTASSIUM - SERUM 3.6 mmol/L (3.5-5.1); PROTEIN - SERUM 7.3 g/dL (6.4-8.2)
[2019-04-24 08:17] VITALS: BP 139/54
[2019-04-24 08:29] LABS: EOSINOPHILS 1 % (0-7); LYMPHOCYTES 7 % (15-50); MONOCYTES 6 % (2-11); NEUTROPHILS 85 % (40-80); PLATELET ESTIMATE NORMAL
--- NOTE | 2019-04-24 09:24 | NUR ---
RESTING IN BED, NO DISTRESS NOTED, WANTING TO GET UP FOR BM, TELE IN PLACE, CONT TO MONITOR SUGARS, EDEMA CONT TO LOWER LETS
[2019-04-24 17:45] VITALS: BP 149/51
[2019-04-24 20:33] VITALS: BP 156/75
[2019-04-25 01:00] VITALS: BP 132/57
[2019-04-25 05:21] VITALS: BP 147/64
[2019-04-25 07:07] LABS: BASOPHILS 0.2 % (0-2); EOSINOPHILS 0.2 % (0-7); HEMATOCRIT 32.3 % (36.0-48.0); HEMOGLOBIN 9.5 g/dL (12-16); IMMATURE GRANULOCYTES 0.5 % (0-5); LYMPHOCYTES 5.3 % (15-50); MCH 23.9 pg (26.0-34.0); MCHC 29.4 g/dL (31.0-37.0); MCV 81.2 fL (80.0-100.0); MONOCYTES 15.2 % (2-11); NEUTROPHILS 78.6 % (40-80); PLATELET COUNT 237 10x3/uL (130-400); RBC 3.98 10x6/uL (4.00-5.40); RDW 28.7 % (11.5-14.5); WBC 20.8 10x3/uL (4.8-10.8)
[2019-04-25 07:47] LABS: ALBUMIN 1.9 g/dL (3.4-5.0); ANION GAP 12.1 mmol/L (8-16); BILIRUBIN - TOTAL 0.51 mg/dL (0.2-1.3); CALCIUM 8.1 mg/dL (8.5-10.1); CARBON DIOXIDE 28.3 mmol/L (21.0-32.0); CREATININE - SERUM 0.9 mg/dL (0.6-1.3); POTASSIUM - SERUM 3.4 mmol/L (3.5-5.1)
[2019-04-25 08:28] VITALS: BP 133/49
--- NOTE | 2019-04-25 10:18 | NUR ---
RESTING IN BED, NO DISTRESS NOTED, REMAINS ON BEDREST, IV INFUSING PER LEFT HAND, CONT TO MONITOR SUGARS
[2019-04-25 12:09] VITALS: BP 160/70
[2019-04-25 16:11] VITALS: BP 126/57
[2019-04-25 20:51] VITALS: BP 141/66
--- NOTE | 2019-04-25 21:41 | NUR ---
PT ALERT & ORIENTED. PULLED PT UP IN BED AND REPOSITIONED. FSBS 205 - GAVE 4 UNITS INSULIN PER SS. PT C/O FOOT PAIN 03/11. GAVE 1 TAB NORCO 7.5 PO AND OTHER SCHEDULED MEDS. ASSESSMENT COMPLETE PER FLOW-SHEET. NO OTHER NEEDS. WILL REASSESS AND CONTINUE TO MONITOR.
[2019-04-26 01:05] VITALS: BP 130/63
[2019-04-26 05:06] VITALS: BP 137/72
[2019-04-26 07:09] LABS: BASOPHILS 0.2 % (0-2); EOSINOPHILS 0.7 % (0-7); HEMATOCRIT 31.3 % (36.0-48.0); HEMOGLOBIN 9.3 g/dL (12-16); IMMATURE GRANULOCYTES 0.4 % (0-5); LYMPHOCYTES 6.5 % (15-50); MCH 24.1 pg (26.0-34.0); MCHC 29.7 g/dL (31.0-37.0); MCV 81.1 fL (80.0-100.0); MEAN PLATELET VOLUME 10.2 fL (7.4-10.4); MONOCYTES 15.7 % (2-11); NEUTROPHILS 76.5 % (40-80); PLATELET COUNT 223 10x3/uL (130-400); RBC 3.86 10x6/uL (4.00-5.40); RDW 28.9 % (11.5-14.5); WBC 19.1 10x3/uL (4.8-10.8)
[2019-04-26 07:10] LABS: ALBUMIN 1.7 g/dL (3.4-5.0); ANION GAP 8.4 mmol/L (8-16); BILIRUBIN - TOTAL 0.44 mg/dL (0.2-1.3); CALCIUM 8.3 mg/dL (8.5-10.1); CREATININE - SERUM 0.9 mg/dL (0.6-1.3); PROTEIN - SERUM 7.4 g/dL (6.4-8.2)
[2019-04-26 07:14] LABS: POTASSIUM - SERUM 3.4 mmol/L (3.5-5.1)
[2019-04-26 07:24] LABS: APTT 56.1 SECONDS (22.8-39.4); INR 1.57 (0.85-1.17); PROTIME 18.1 SECONDS (11.6-15.0)
--- NOTE | 2019-04-26 08:21 | NUR ---
PT RESTING WITH EYES CLOSED. OPENS EYES SPONTANEOUSLY AND GREETS STAFF APPROPRIATELY STAFF MOVES AROUND ROOM. RESP EVEN AND UNLABORED. O2 @ 2L NC IN PLACE. RATES PAIN 4/10 AT THIS TIME, DENIES NEED FOR PAIN MEDICATION AT THIS TIME. IV TO RIGHT HAND WITH NS @ 30ML/HR INFUSING VIA PUMP. SITE WITHOUT REDNESS OR EDEMA. F/C PATENT TO GRAVITY, DRAINING YELLOW URINE. PT DENIES FURTHER NEEDS AT THIS TIME. CL WITHIN REACH. ENCOURAGED TO CALL WITH NEEDS. CONTINUE POC
[2019-04-26 08:22] VITALS: BP 136/73
--- NOTE | 2019-04-26 11:47 | NUR ---
SPOKE WITH LUNA MYERS APN REGARDING PT FOR PT. SHE REPORTS TO CONTINUE WITH PT ORDERED. ASKED SPECIFICALLY REGARDING AMBULATING. STATES YES FOR PT TO WORK WITH AMBULATING. INFORMED PT OF CLARIFICATION.
[2019-04-26 12:52] VITALS: BP 150/62
--- NOTE | 2019-04-26 14:41 | NUR ---
Nutrition follow-up: Diet: consistent CHO PO intake ~60% average of last 5 meals Pt was NPO for a procedure Labs reviewed WT: 214# RDN following.
--- NOTE | 2019-04-26 16:19 | NUR ---
OT NOTE: PT ON HOLD IN AM; INFORMED BY LAMINATING MACHINE TENDER THAT PT WAS GIVEN THE OK TO AMB IN PM. HOWEVER, FAMILY REFUSED AND WANTED TO SPEAK WITH NURSING THEY WERE CONCERNED RE NOTE ON DOOR FOR BED REST TODAY. INFORMED NURSING. WILL CHECK AGAIN TOMORROW. SATISH FENG, OTR/L
[2019-04-26 16:34] VITALS: BP 159/76
[2019-04-26 20:41] VITALS: BP 133/73
[2019-04-27 01:39] VITALS: BP 137/78
[2019-04-27 04:49] VITALS: BP 123/76
[2019-04-27 06:09] LABS: HEXAGONAL PHASE PHOS 0 sec (0-11); LUPUS - INTERPRETATION Comment: (()); LUPUS - dRVVT 43.6 sec (0.0-47.0); PTT-LA 59.3 sec (0.0-51.9); PTT-LA MIX 52.7 sec (0.0-48.9)
--- NOTE | 2019-04-27 06:15 | NUR ---
I have reviewed this patient and I concur with the Shift Assessment completed by the Licensed Practical Nurse today this shift.
[2019-04-27 07:13] LABS: ALBUMIN 1.7 g/dL (3.4-5.0); ANION GAP 11.6 mmol/L (8-16); BILIRUBIN - TOTAL 0.42 mg/dL (0.2-1.3); CALCIUM 8.2 mg/dL (8.5-10.1); CREATININE - SERUM 0.8 mg/dL (0.6-1.3); POTASSIUM - SERUM 3.6 mmol/L (3.5-5.1); PROTEIN - SERUM 7.1 g/dL (6.4-8.2)
[2019-04-27 07:17] LABS: BASOPHILS 0.2 % (0-2); EOSINOPHILS 0.5 % (0-7); HEMATOCRIT 31.8 % (36.0-48.0); HEMOGLOBIN 9.4 g/dL (12-16); IMMATURE GRANULOCYTES 0.3 % (0-5); LYMPHOCYTES 8.2 % (15-50); MCHC 29.6 g/dL (31.0-37.0); MCV 81.1 fL (80.0-100.0); MEAN PLATELET VOLUME 10.2 fL (7.4-10.4); MONOCYTES 14.6 % (2-11); NEUTROPHILS 76.2 % (40-80); PLATELET COUNT 238 10x3/uL (130-400); RBC 3.92 10x6/uL (4.00-5.40); RDW 29.2 % (11.5-14.5); WBC 16.4 10x3/uL (4.8-10.8)
--- NOTE | 2019-04-27 08:00 | NUR ---
PATIENT SLEEPING ON BACK. RIGHT LEG REPOSTIONED ON 2 PILLOWS. ALOT OF PAIN WHEN MOVED. IV THERAPY RESTARTED IN RIGHT FOREARM BY VASCULAR ACCESS. CL IN REACH. BED ALARM ON. WCTM
--- NOTE | 2019-04-27 08:49 | EC ---
PATIENT:GRZEGORZ DURÁN DATE OF SERVICE: 04/13/19 SEX: F MEDICAL RECORD: [id number] DATE OF : [birth year] LOCATION:D.[facility] AGE OF PATIENT: 73 ADMISSION DATE: 04/13/19 REFERRING PHYSICIAN: INTERPRETING PHYSICIAN: ALFRED MARTINEZ MD ECHOCARDIOGRAM REPORT ECHO CHARGES 4 ECHO COMPLETE Date: 04/24/19 CLINICAL DIAGNOSIS: AFIB ECHOCARDIOGRAPHIC MEASUREMENTS (adult normal given) AC root (d.<3.7cm) 3.1 cm LV Septum d (<1.2 cm> 1.1 cm Valve Excursion 1.5 cm LV Septum (systole) 1.6 cm Left Atria (s.<4.0cm> 5.5 cm LVPW d(<1.2cm) 1.45 cm RV (d.<2.3cm) 3.6 cm LVPW (sytole) 16 cm LV diastole(<5.6CM) 4.5 cm MV E-F(>70mm/sec) cm LV systole 2.9 cm LVOT Diameter 1.8 cm MV exc.(>10mm) 1.9 cm Est.ejection fraction (50-75%) % DOPPLER: LVIT cm/sec A cm/sec E 132 cm/sec LA cm/sec RVSP 60 mmHg LVOT 88 cm/sec AOP1/2T m/s Asc. Ao 159 cm/sec RVOT 102 cm/sec RA cm/sec PA 123 cm/sec AV Gradient Peak 10.08mmHg AV Mean 4.62 mmHg AV Area 1.8 cm MV Gradient Peak 9.17 mmHg MV Mean 4.07 mmHg MV Area cm COMMENTS: National Accounts Recruiter: 2 TRISTON MCNAMARA Locomotive Switch Operator: 3 Dr. Beck TAPE# PACS Pericardial Effusion N DATE OF SERVICE: Adequate 2D, color flow, spectral Doppler, and M-mode. LVH is present. LV internal dimension is normal. Wall motion is normal. EF is greater than or equal to 55%. Aortic valve sclerosis without stenosis by Doppler interrogation. Left atrium is dilated at 5.5 cm. Mitral valve shows no prolapse. Trace MR. Right-sided chambers grossly normal. Mild TR. TRANSINT:[id number] Voice Confirmation ID: [id number] DOCUMENT ID: [id number] ECHOCARDIOGRAM REPORT [id number] GRZEGORZ DURÁN ALFRED MARTINEZ MD at 0849 CC: [id number] DICTATION DATE: 04/25/19 1015 UNIVERSAL GRINDER SET UP OPERATOR: 04/25/19 1123 ADM IN [facility] [id number] [place] [address]
[2019-04-27 08:53] VITALS: BP 133/57
--- NOTE | 2019-04-27 14:57 | NUR ---
OT NOTE: ATTEMPTED IN AM, HOWEVER, PT REFUSED DUE TO PAIN IN L LE. PT STRONGLY ENCOURAGED TO PARTICIPATE IN PM..PT WAS ENCOURAGED TO ATTEMPT TO MOVE L LE TO EOB; PT WAS PROVIDED WITH AMPLE TIME AND WAS UNABLE TO PERFORM; ASSISTED PT IN MOVEMENT AND SHE CRIED OUT IN PAIN STATING THAT THERAPIST WAS HURTING HER . AFTER EXTENSIVE TIME, ANOTHER ATTEMPT WAS MADE, AND AGAIN, PT UNABLE TO TOLERATE PAIN IN L KNEE AND FOOT. REQUIRED MOD ASSIST X 3 TO MOVE PT ONE UNIT FROM SUPINE TO SIT. AFTER GETTING PT TO EOB, SHE WAS ABLE TO MAINTAIN STATIC SITTING ON EOB X 5 MIN. MAX ASSIST TO GENEVA SOCKS AND MOD ASSIST TO GENEVA GOWN. SIT TO STAND X 3 ATTEMPTS WITH MAX ASSIST.. INSTEAD OF PUSHING DOWN ON WALKER, SHE WAS PULLING WALKER UP. CALMLY RE INSTRUCTED PT BUT SHE WAS VERY FEARFUL AND ANIOUS, YELLING THAT THE WALKER WAS FALLING.. THIS WENT ON THROUGH SEVERAL ATTEMPTS. FINALLY REPOSITIONED PT BACK TO BED WITH MAX ASSIST; REQUIRED TOTAL ASSIST FOR TOILET HYGIENE PT WAS INCONT OF BM. PT PUTTING FORTH MINIMAL EFFORT IN ATTEMPTS TO STAND. PT WAS AMB OVER 100 FT LAST WEEK BUT POOR MOTIVATION TODAY. WILL RE ATTEMPT TOMORROW. AT THIS TIME, RECOMMEND IP REHAB PT WILL CURRENTLY BE UNABLE TO CARE FOR SELF AT HOME. SATISH FENG, OTR/L
--- NOTE | 2019-04-27 16:19 | NUR ---
OT NOTE: PT COMPLETED SIT TO STAND WITH TOTAL A X2. PT COMPLETED BED MOB TASKS WITH TOTAL A. PT COMPLETED LB HYGIENE TASKS WITH TOTAL A. PT EXHIBITED AN EXTENSIVE DECLINE IN FUNCTIONAL INDEPENDENCE. PT EXHIBITED SELF LIMITING BEHAVIOR. THANK YOU,ARNEL RILEY
[2019-04-27 17:23] VITALS: BP 138/58
--- NOTE | 2019-04-27 17:59 | NUR ---
FAMILY IN ROOM. IV THERAPY KEEPS ALARMING PATIENT SIDED OCCLUDED. PATIENT ADVISED WITH HER IV NOW IN LEFT AC NOT TO BEND HER ARM. CL IN REACH. WCTM
--- NOTE | 2019-04-27 19:30 | NUR ---
PT SITTING UP IN BED WITHOUT DISTRESS, AOX4. O2 2L/NC. IV LEFT AC INFUSING NS @ 30. ALMODOVAR IN PLACE DRAINING DARK URINE. PT STATES LEFT LEG HURTS, HELPED PT PROP FOOT ON PILLOW. PT STILL NPO FOR POSSIBLE PROCEDURE. FAMILY AT BEDSIDE. DENIES NEEDS. CL IN REACH, WILL CTM
--- NOTE | 2019-04-27 20:00 | NUR ---
SPOKE WITH EXPLOSIVE OPERATOR GRENADE ABOUT PT POSSIBLY GOING FOR IVC PLACEMENT TONIGHT. URIEL ESCOTO SPOKE WITH SURGERY AND DR CARLISLE. DR CARLISLE STATES HE WILL NOT BE DOING SURGERY TONIGHT OR TOMORROW THAT HE DOES NOT BELIEVE PT IS A CANDIDATE. SPOKE WITH NUNO CLINE APN ABOUT PT NPO DIET. ORDERS TO CHANGE DIET TO DIABETIC DIET.
[2019-04-27 20:14] VITALS: BP 131/52
[2019-04-28 01:02] VITALS: BP 121/63
[2019-04-28 05:11] VITALS: BP 141/61
[2019-04-28 06:16] LABS: BASOPHILS 0.1 % (0-2); EOSINOPHILS 1.6 % (0-7); HEMATOCRIT 32.5 % (36.0-48.0); HEMOGLOBIN 9.6 g/dL (12-16); IMMATURE GRANULOCYTES 0.2 % (0-5); LYMPHOCYTES 8.1 % (15-50); MCH 24.6 pg (26.0-34.0); MCHC 29.5 g/dL (31.0-37.0); MEAN PLATELET VOLUME 10.7 fL (7.4-10.4); MONOCYTES 19.6 % (2-11); NEUTROPHILS 70.4 % (40-80); PLATELET COUNT 249 10x3/uL (130-400); RBC 3.91 10x6/uL (4.00-5.40); RDW 29.9 % (11.5-14.5); WBC 13.9 10x3/uL (4.8-10.8)
[2019-04-28 06:19] LABS: MCV 83.1 fL (80.0-100.0)
[2019-04-28 06:39] LABS: ALBUMIN 1.4 g/dL (3.4-5.0); ALKALINE PHOSPHATASE 141 U/L (46-116); ALT (SGPT) 14 U/L (10-68); BILIRUBIN - TOTAL 0.46 mg/dL (0.2-1.3); CALC OSMOLALITY 272 mosm/kg (275-300); CALCIUM 8.2 mg/dL (8.5-10.1); CHLORIDE - SERUM 104 mmol/L (98-107); CREATININE - SERUM 0.7 mg/dL (0.6-1.3); POTASSIUM - SERUM 4.1 mmol/L (3.5-5.1); PROTEIN - SERUM 7.3 g/dL (6.4-8.2); SODIUM 137 mmol/L (136-145); UREA NITROGEN 12 mg/dL (7-18); eGFR NON AFRICAN AMERICAN 87 mL/min (90-120)
[2019-04-28 06:43] LABS: GLUCOSE 76 mg/dL (74-106)
[2019-04-28 09:22] VITALS: BP 116/47
--- NOTE | 2019-04-28 10:54 | NUR ---
NISHI DC'ED. 100 MLS OF DARK URINE IN BAG. 8.5 ML OF FLUID REMOVED FROM THE BALLOON. TOLERATED WELL
--- NOTE | 2019-04-28 12:40 | NUR ---
OT NOTE: NOTIFIED OF PHYSICIAN ORDERS TO ASSIST PT OUT OF BED. UNABLE TO GET PT TRANSFERRED YESTERDAY DUE TO WEAKNESS. BED MOB WITH MOD/MAX ASSIST. SITTING BALANCE ON EOB IS GOOD. PERFORMED SIT TO STAND X 3 TRIALS WITH MAX ASSIST X 2, AND ASSIST OF ONE MORE TO CALM PT AND ENCOURAGE UPRIGHT STANDING BY PUSHING THROUGH ARMS AND LEGS. PT BECOMES VERY ANXIOUS IN STANDING, STATING THAT THE WALKER IS MOVING. REQUIRED ASSIST OF 1 TO HOLD DOWN WALKER. ATTEMPTED TO STAND WITH PT WHILE NURSING CLEANED PERINEAL AREA. ATTEMPTED TO TRANSFER PT FROM BED TO COMMODE, HOWEVER, PT UNABLE TO SUPPORT HERSELF WITH LES AT THIS TIME, AND UNABLE TO MOVE FEET. WHILE STANDING, PT DROPPED AND 2 THERAPIST WERE ABLE TO GET HER ONTO THE BED WITHOUT INCIDENT. EXPLAINED TO PT THAT THIS IS DANGEROUS, NOT ONLY TO SELF, BUT ALSO TO STAFF. ATTEMPTED UE AROM EXS BUT PT FAIGUED QUICKLY. TOTAL ASSIST WITH TOILETING; BACK TO BED WITH MAX ASSIST; ABLE TO ROLL FROM SIDE TO SIDE WITH MOD ASSIST. HIGHLY RECOMMEND IP REHAB..PT WILL NOT BE ABLE TO RETURN HOME IN THIS CONDITION. SATISH FENG, OTR/L
--- NOTE | 2019-04-28 15:22 | NUR ---
OT NOTE: PT REQUIRED TOTAL A X4 FOR SIT TO STANDS. PT COMPLETED BED MOB TASKS WITH MAX A. PT REQUIRED TOTAL A X2 FOR LB HYGIENE TASKS. PT EXHIBITES SELF LIMITING BEHAVIORS. PT CAN BEAR WT IN LE, HOWEVER, SHE WILL SAY "IM FALLING" AND IMMEDIATELY GO LIMP. PT REQUIRED MAX CUES FOR ATTENTION TO TASK. PT IS EASILY DISTRACTED. THANK YOU, ARNEL RILEY
[2019-04-28 16:34] VITALS: BP 143/68
[2019-04-28 19:30] VITALS: BP 145/78
[2019-04-29] VITALS (7 sets, daily range): BP systolic 108–150; BP diastolic 49–81
--- NOTE | 2019-04-29 03:22 | NUR ---
ALERT AND ORENTED ABLE TO VOICE NEEDS AND WANTS TO STAFF. O2 AND 2L/HR. IV TO LEFT AC WITH NS AT 30ML/HR. NO S/S OF DISTRESS. CALL LIGHT IN REACH/
[2019-04-29 07:13] LABS: BASOPHILS 0.2 % (0-2); EOSINOPHILS 2.1 % (0-7); HEMATOCRIT 33.1 % (36.0-48.0); HEMOGLOBIN 9.6 g/dL (12-16); IMMATURE GRANULOCYTES 0.2 % (0-5); LYMPHOCYTES 7.2 % (15-50); MCH 24.2 pg (26.0-34.0); MCV 83.4 fL (80.0-100.0); MEAN PLATELET VOLUME 10.1 fL (7.4-10.4); MONOCYTES 11.3 % (2-11); PLATELET COUNT 283 10x3/uL (130-400); RBC 3.97 10x6/uL (4.00-5.40); RDW 29.4 % (11.5-14.5); WBC 12.6 10x3/uL (4.8-10.8)
[2019-04-29 07:23] LABS: ALBUMIN 1.5 g/dL (3.4-5.0); BILIRUBIN - TOTAL 0.35 mg/dL (0.2-1.3); CARBON DIOXIDE 32.5 mmol/L (21.0-32.0); CREATININE - SERUM 0.8 mg/dL (0.6-1.3); POTASSIUM - SERUM 3.5 mmol/L (3.5-5.1); PROTEIN - SERUM 7.5 g/dL (6.4-8.2); VANCOMYCIN - TROUGH 25.1 ug/mL (10.0-20.0)
--- NOTE | 2019-04-29 07:32 | NUR ---
PT IS RESTING IN BED WITH EYES OPEN. RESPIRATIONS ARE EVEN AND UNLABORED. PT IS AAO X 4. PT DENIES PRESENCE OF PAIN/N/V. PT REPORTS THAT SHE HAS "THESE KNOTS THAT POPPED UP ON MY HANDS". A QUARTER SIZED "RED BUMP" NOTED TO BACK SIDE OF PT LEFT HAND PT REPORTS TENDERNESS TO AREA. A DIME SIZED "RED BUMP" NOTED TO THE BACK OF THE PT RIGHT HAND THAT PT REPORTS TENDERNESS TO THE AREA WELL. ALMODOVAR CATHETER NOTED AND DRAINING WITHOUT DIFFICULTY. CLEAR YELLOW URINE NOTED TO COLLECTION BAG. LEFT AC PIV INFUSING WITHOUT DIFFICULTY. ALL FALL PRECAUTIONS ARE IN PLACE. BED IS IN THE LOWEST POSITION. CALL LIGHT AND BEDSIDE TABLE ARE WITHIN REACH. SIDE RAILS X 2. PT DENIES FURTHER NEEDS. WILL CONT TO MONITOR.
--- NOTE | 2019-04-29 12:13 | NUR ---
OT NOTE: SEVERAL THERAPISTS REQUIRED TO SEE PT TODAY. PT WANTING TO GET OVER TO TOILET, HOWEVER, THERAPISTS UNABLE TO LIFT HER OVER AT THIS TIME. MAX ASSIST WITH ALL BED MOBILITY. PT BECOMES ANGRY STATING THAT WE ARE TOO ROUGH WITH HER. EXPLAINED TO PT THAT IF SHE COULD ASSIST, IT WOULD BE EASIER AND LESS PAINFUL ON HER. PT VERY SLOW AND EASILY DISTRACTED.. WHEN THERAPISTS ENCOURAGES PT TO GET STARTED ON TASK, SHE BECOMES AGITATED, STATING, "WHY ARE TRYING TO NAPIER ME? GET ON OUT IF YOU NEED TO GO!" EXPLAINED TO HER THAT WE ARE ALL IN A FLEXED POSITION TO HELP HER AND THAT ITS UNCOMFORTABLE TO REMAIN THIS WAY IF SHE IS NOT GOING TO ATTEMPT TO STAND. SIT TO STAND WITH MAX ASSIST X 3..PT UNABLE TO STAY UP GREATER THAN A FEW SECONDS FOR EACH TRIAL . SHE REPORTS THAT HER R KNEE IS TOO PAINFUL; PT VERY MUCH WANTING TO TRANSFER TO BS COMMODE, HOWEVER, ATTEMPTS MADE AND PT IS UNABLE TO SUPPORT HERSELF WITH LES. EDUCATED PT ON EXERCISES IN BED AND IMPORTANCE OF EXERCISING TO PREVENT STIFFNESS AND IMPROVE STRENGTH. IF PT CONTINUES LIKE THIS, SHE WILL BECOME BED BOUND. PTS TRUNK CONTROL IS ALSO NOW BEING AFFECTED. SHE HAS DIFFICULTY HOLDING HERSELF UP ON EOB; SHE IS UNABLE TO INDEP GET SELF SCOOTED TO EOB. SHE IS ABLE TO ROLL FROM SIDE TO SIDE AND PT WAS ENCOURAGED TO DO THIS ON HER OWN TO MAINTAIN SMALL AMOUNT OF STRENGTH AND MOBILITY. SATISH FENG, OTR/L
--- NOTE | 2019-04-29 19:47 | NUR ---
OT NOTE: PT COMPLETED BED MOB TASKS WITH MAX A X4. PT ATTEMPTED A SIT TO STAND X 2 WITH MAX A X4. PT STATED SHE IS TOO WEAK TO BEAR WT ON LE. PT HAD TO BE ENCOURAGED TO PUT FORTH GOOD EFFORT. PT EXHIBITED SELF LIMITING BEHAVIOR. PT COMPLETED UE AROM . THANK YOU,ARNEL RILEY
[2019-04-30 00:30] VITALS: BP 139/68
--- NOTE | 2019-04-30 00:39 | NUR ---
I have reviewed this patient and I concur with the Shift Assessment completed by the Licensed Practical Nurse today this shift.
[2019-04-30 04:52] VITALS: BP 144/73
[2019-04-30 07:23] LABS: BASOPHILS 0.2 % (0-2); EOSINOPHILS 1.2 % (0-7); HEMATOCRIT 31.9 % (36.0-48.0); HEMOGLOBIN 9.4 g/dL (12-16); IMMATURE GRANULOCYTES 0.3 % (0-5); LYMPHOCYTES 8.2 % (15-50); MCH 24.2 pg (26.0-34.0); MCHC 29.5 g/dL (31.0-37.0); MONOCYTES 12.1 % (2-11); PLATELET COUNT 273 10x3/uL (130-400); RBC 3.89 10x6/uL (4.00-5.40); RDW 29.8 % (11.5-14.5); WBC 13.4 10x3/uL (4.8-10.8)
[2019-04-30 07:33] LABS: ALBUMIN 1.5 g/dL (3.4-5.0); ALKALINE PHOSPHATASE 233 U/L (46-116); ALT (SGPT) 17 U/L (10-68); BILIRUBIN - TOTAL 0.33 mg/dL (0.2-1.3); CALC OSMOLALITY 283 mosm/kg (275-300); CALCIUM 8.5 mg/dL (8.5-10.1); CARBON DIOXIDE 31.8 mmol/L (21.0-32.0); CHLORIDE - SERUM 104 mmol/L (98-107); CREATININE - SERUM 0.7 mg/dL (0.6-1.3); GLUCOSE 120 mg/dL (74-106); POTASSIUM - SERUM 3.8 mmol/L (3.5-5.1); PROTEIN - SERUM 7.6 g/dL (6.4-8.2); SODIUM 142 mmol/L (136-145); UREA NITROGEN 12 mg/dL (7-18); eGFR NON AFRICAN AMERICAN 87 mL/min (90-120)
--- NOTE | 2019-04-30 09:00 | NUR ---
ALERT AND ORIENTED TO SELF WITH ITNERMITTANT CONFUSION. REFUSES TO KEEP GOWN ON OR TELEMETRY. FALL PRECAUTIONS IN PLACE. IVF INFUSINT TO LEFT F/A WITH NO S/S OF INFECTION/INFILTRATION. ENCOURAGED TO USE CALL LIGHT FOR ASSIST.
[2019-04-30 09:01] VITALS: BP 143/55
--- NOTE | 2019-04-30 11:02 | MORECARE ---
CASE MANAGEMENT DISCHARGE SUMMARY PATIENT: GRZEGORZ DURÁN UNIT: [id number] ADM DATE: 04/13/19 AGE: 73 : 46 SEX: F ROOM/BED: D.2237 AUTHOR: CHELSI KELLY PHYSICIAN: REFERRING PHYSICIAN: YENNY STRINGER MD DATE OF SERVICE: 04/30/19 Discharge Plan Patient Name: GRZEGORZ DURÁN Facility: [facility]:[place] : 1945 Planned Disposition: Home Anticipated Discharge Date: Discharge Date: Expected LOS: Initial Reviewer: [email or web address] Initial Review Date: 04/14/2019 Generated: 04/30/19 12:01 pm Comments DCP- Discharge Planning Updated by [email or web address]: Divina Darling on 04/30/19 9:[address] Spoke with patient about inpatient rehab vs SNF. I provided her with a list of SNF. I informed her to speak with her sister when she arrives about the different rehab facilities, voices understanding. I will meet with her and her sister when they arrive. CM will continue to follow and assist with discharge planning/needs. DCP- Discharge Planning Updated by [id number]: Divina Darling on 04/23/19 12:[address] Called to the room by patient's sister. Patient is sitting in the chair. Patient's sister states they want to know how to get transferred to [facility] in [place]. I asked her why she requests a transfer and she states that her "heart doctor is at [facility]." I informed her that she would need an accepting physician at [facility] and it would also be a lateral transfer and she would be responsible for the transportation if accepted. They do not request a transfer at this time. CM will continue to follow and assist with discharge planning/needs. DCP- Discharge Planning Updated by [id number]: Divina Darling on 04/14/19 1:[address] Patient Name: GRZEGORZ DURÁN Admission Status: Elective Accout number: [id number] Admission Date: 04-13-2019 : 1945 Admission Diagnosis: Attending: YENNY STRINGER Current LOS: 1 Anticipated DC Date: Planned Disposition: Home Primary Insurance: [employer] ADV Discharge Planning Comments: CM met with patient to complete initial dc planning assessment. CM educated patient on the CM role and verbal consent given by patient to complete assessment. Patient lives at home with her sister. At discharge she plans to return home and feels this is a safe discharge. CM discussed availability of home health, rehab and additional DME. Patient denied known discharge needs at this time. CM will continue to follow and assist with dc plans/needs. Patient Care Associate: Divina Sheffieldearl DCPIA - Discharge Planning Initial Assessment Updated by [email or web address]: Divina Hastings on 04/14/19 2:35 pm * Is the patient Alert and Oriented? Yes * How many steps to enter\\exit or inside your home? 5/0 * PCP Dr. Raymond * Pharmacy [facility] on [address] * Preadmission Environment Home with Family * ADLs Independent * Equipment Cane Other * Other Equipment Built in shower bench in shower * List name and contact numbers for known caregivers / representatives who currently or will assist patient after discharge: Claire Gusman - - [phone] * Verbal permission to speak to the caregivers and representatives has been obtained from the patient. Yes * Community resources currently utilized None * Additional services required to return to the preadmission environment? No * Can the patient safely return to the preadmission environment? Yes * Has this patient been hospitalized within the prior 30 days at any hospital? No Last DP export: 04/23/19 12:18 Patient Name: GRZEGORZ DURÁN Page [phone] at 1102 All edits/amendments must be made on the electronic document DICTATION DATE: 04/30/191100 HAIR SPINNING MACHINE OPERATOR: LUCY 04/30/191100 RPT#: [id number] DC DATE: STATUS: ADM IN [facility] [address] [place] [address] END OF REPORT
--- NOTE | 2019-04-30 12:16 | NUR ---
NUTRTIION F/U PT CURRENTLY EATING LUNCH. ATE ~ 25% BREAKFAST. PT REPORTS SHE IS DRINKING GLUCERNA SHAKE WITH MEALS. WILL CONTINUE TO PROVIDE DIABETIC DIET AND AND GLUCERNA SHAKE. ENCOURAGE PO INTAKE. RD FOLLOWING
[2019-04-30 12:59] VITALS: BP 108/55
--- NOTE | 2019-04-30 14:05 | MORECARE ---
CASE MANAGEMENT DISCHARGE SUMMARY PATIENT: GRZEGORZ DURÁN UNIT: [id number] ADM DATE: 04/13/19 AGE: 73 : 46 SEX: F ROOM/BED: D.2237 AUTHOR: LETICIA,DOC PHYSICIAN: REFERRING PHYSICIAN: YENNY STRINGER MD DATE OF SERVICE: 04/30/19 Discharge Plan Patient Name: GRZEGORZ DURÁN Facility: [facility]:[place] : 1945 Planned Disposition: Home Anticipated Discharge Date: Discharge Date: Expected LOS: Initial Reviewer: [email or web address] Initial Review Date: 04/14/2019 Generated: 04/30/19 3:05 pm Comments DCP- Discharge Planning Updated by [id number]: Divina Hastings on 04/30/19 12:[address] CM MET AGAIN WITH PATIENT AND SISTER PER HER REQUEST. THEY WOULD LIKE INPATIENT REHAB AT [facility] AND IF INSURANCE DOES NOT AUTHORIZE, WOULD LIKE A REFERRAL SENT TO [facility] SISTER AND PATIENT STATES THEY DO NOT WANT TO CHOOSE ANY OTHER CHOICES UNTIL THEY HAVE BEEN DENIED. I PLACED A REHAB PRESCREENING ORDER. I HAVE INFORMED PATIENT AND SISTER THAT IF SHE CANNOT TOLERATE 3 HOURS OF THERAPY A DAY, HER INSURANCE WILL NOT APPROVE INPATIENT REHAB. CM WILL CONTINUE TO FOLLOW AND ASSIST WITH DISCHARGE PLANNING/NEEDS. DCP- Discharge Planning Updated by [id number]: Divina Hastings on 04/30/19 9:[address] Spoke with patient about inpatient rehab vs SNF. I provided her with a list of SNF. I informed her to speak with her sister when she arrives about the different rehab facilities, voices understanding. I will meet with her and her sister when they arrive. CM will continue to follow and assist with discharge planning/needs. DCP- Discharge Planning Updated by [id number]: Divina Hastings on 04/23/19 12:[address] Called to the room by patient's sister. Patient is sitting in the chair. Patient's sister states they want to know how to get transferred to [facility]. I asked her why she requests a transfer and she states that her "heart doctor is at [facility]." I informed her that she would need an accepting physician at [facility] and it would also be a lateral transfer and she would be responsible for the transportation if accepted. They do not request a transfer at this time. CM will continue to follow and assist with discharge planning/needs. DCP- Discharge Planning Updated by [id number]: Divina Hastings on 04/14/19 1:[address] Patient Name: GRZEGORZ DURÁN Admission Status: Elective Accout number: [id number] Admission Date: 04-13-2019 : 1945 Admission Diagnosis: Attending: YENNY STRINGER Current LOS: 1 Anticipated DC Date: Planned Disposition: Home Primary Insurance: [employer] ADV Discharge Planning Comments: CM met with patient to complete initial dc planning assessment. CM educated patient on the CM role and verbal consent given by patient to complete assessment. Patient lives at home with her sister. At discharge she plans to return home and feels this is a safe discharge. CM discussed availability of home health, rehab and additional DME. Patient denied known discharge needs at this time. CM will continue to follow and assist with dc plans/needs. Security Public Safety Officer: Divina Hastings DCPIA - Discharge Planning Initial Assessment Updated by [id number]: Divina Hastings on 04/14/19 2:35 pm * Is the patient Alert and Oriented? Yes * How many steps to enter\\exit or inside your home? 5/0 * PCP Dr. Raymond * Pharmacy [facility] on [address] * Preadmission Environment Home with Family * ADLs Independent * Equipment Cane Other * Other Equipment Built in shower bench in shower * List name and contact numbers for known caregivers / representatives who currently or will assist patient after discharge: Claire Gusman - - [phone] * Verbal permission to speak to the caregivers and representatives has been obtained from the patient. Yes * Community resources currently utilized None * Additional services required to return to the preadmission environment? No * Can the patient safely return to the preadmission environment? Yes * Has this patient been hospitalized within the prior 30 days at any hospital? No Coverage Notice Reviewer: [id number] Helen Hastings Notice Issued Date-Time: 04/30/2019 13:54 Notice Type: Patient Choice Letter Notice Delivered To: Patient Relationship to Patient: Self Program Services Planner Name: Delivery Method: HAND - Hand Delivered Lilliana Days: Prior Verbal Notification: Recipient Understood Notice: Yes Recipient Signature: Yes Med Rec Note Co-signed by Attending: Coverage Notice Comment: KYLEE FOR [facility] INPATIENT REHAB AND [facility] Last DP export: 04/30/19 10:02 Patient Name: GRZEGORZ DURÁN Page [phone] at 1405 All edits/amendments must be made on the electronic document DICTATION DATE: 04/30/19 140 AUDIO VISUAL TECHNICIAN: LUCY 04/30/19 1405 RPT#: [id number] DC DATE: STATUS: ADM IN [facility] [address] [place] [address] END OF REPORT
--- NOTE | 2019-04-30 14:53 | NUR ---
Rehab Note- Acute Inpatient Rehab prescreen order received. THe patient has [employer] insurance and will require a PreAuth. Have initiated the PreAUth with [employer] through [employer]. Intake Ref#[id number]. Will continue to follow at this time and await determination for authorization for acute inpatient rehab. Thank you for this referral! Irina Fonseca RN Clinical Liaison, [facility] Rehab
[2019-04-30 16:13] VITALS: BP 125/49
[2019-04-30 20:00] VITALS: BP 142/57
--- NOTE | 2019-04-30 21:50 | NUR ---
WATCHING TV QUEITLY WITH NO DISTRES NOTED. RESP UNLABORED. O2 @ 2L PER NC ON. ALMODOVAR PATENT AND DRAINING CLEAR YELLOW URINE. IV PATENT TO LFA AT 30CC/HR. NO CONCERNS NOTED. CONTINUE POC.
[2019-05-01] VITALS: BP 164/60
[2019-05-01 04:00] VITALS: BP 140/50
--- NOTE | 2019-05-01 04:42 | NUR ---
I have reviewed this patient and I concur with the Shift Assessment completed by the Licensed Practical Nurse today this shift.
[2019-05-01 07:06] LABS: BASOPHILS 0.2 % (0-2); EOSINOPHILS 1.1 % (0-7); HEMATOCRIT 32.8 % (36.0-48.0); HEMOGLOBIN 9.6 g/dL (12-16); IMMATURE GRANULOCYTES 0.3 % (0-5); LYMPHOCYTES 9.3 % (15-50); MCH 24.2 pg (26.0-34.0); MCHC 29.3 g/dL (31.0-37.0); MCV 82.8 fL (80.0-100.0); MEAN PLATELET VOLUME 10.5 fL (7.4-10.4); MONOCYTES 12.8 % (2-11); NEUTROPHILS 76.3 % (40-80); PLATELET COUNT 254 10x3/uL (130-400); RBC 3.96 10x6/uL (4.00-5.40); RDW 29.9 % (11.5-14.5); WBC 11.8 10x3/uL (4.8-10.8)
--- NOTE | 2019-05-01 07:21 | NUR ---
PT LYING IN BED HAVING BREATHING TREATMENT, REQUESTED ICE WATER, GAVE PT WAGTER, NO OTHER NEEDS VOICED, BED IN LOWEST POSITION CL IN REACH ASSUME PT CARE
[2019-05-01 07:25] LABS: ALBUMIN 1.4 g/dL (3.4-5.0); ALKALINE PHOSPHATASE 218 U/L (46-116); ALT (SGPT) 17 U/L (10-68); BILIRUBIN - TOTAL 0.41 mg/dL (0.2-1.3); CALC OSMOLALITY 282 mosm/kg (275-300); CHLORIDE - SERUM 104 mmol/L (98-107); CREATININE - SERUM 0.7 mg/dL (0.6-1.3); GLUCOSE 113 mg/dL (74-106); PROTEIN - SERUM 7.3 g/dL (6.4-8.2); SODIUM 142 mmol/L (136-145); UREA NITROGEN 11 mg/dL (7-18); eGFR NON AFRICAN AMERICAN 87 mL/min (90-120)
[2019-05-01 07:27] LABS: POTASSIUM - SERUM 4.5 mmol/L (3.5-5.1)
[2019-05-01 08:26] VITALS: BP 134/65
[2019-05-01 12:43] VITALS: BP 138/58
--- NOTE | 2019-05-01 12:53 | NUR ---
PT HAD ON FENTENYL PATCH ON LEFT SHOULDER TAKEN OFF BY KOMAL PT NEEDS STRONGER DOSAGE REORDERED BY DR ESTRADA AND KOMAL, PER DR ESTRADA PATCH THATM WAS TAKEN OFF PLACED IN SHARPS. WILL READMINISTER PATCH
--- NOTE | 2019-05-01 13:03 | NUR ---
PT FENTNYL PATCH PLACED ON LEFT SHOULDER DATED AND SIGNED CONTINUE WITH PLAN OF CARE
--- NOTE | 2019-05-01 14:39 | NUR ---
PT SITTING UP IN BED ALERT AND ORIETNED WITH FRIENDS AT THE BEDSIDE. NO S/S OF DISTRESS NOTED AT THIS TIME, DENIES NEEDS OTHER THAN HANDS BOTHERING HER FROM OLD IV SITES, BILAT SWELLING AT SITE, LEFT HAND SITE ALSO HAS BLISTERING PRESENT, HEAT APPLIED TO SITE. WILL CONT TO MONITOR.
[2019-05-01 16:23] VITALS: BP 130/56
--- NOTE | 2019-05-01 18:09 | NUR ---
IV INFILTRATED IN LEFT FOREARM, REMOVED. PAGED KOMAL CLINE TO ASK ABOUT POSSIBLY SWITCHING TO PO MEDS DUE TO SO MANY FAILED IVS AND NEW ATTEMPTS. HE INSTRUCTED ME TO PUT IN AN ORDER FOR A RANDOM TROUGH FOR IN THE MORNING AND TO PUT IN A CONSULT FOR VASCULAR ACCESS, ALSO TO CALL ICU AND SEE IF THEY COULD POSSIBLY GET A NEW IV FOR TONIGHT TO FINISH THE DOSE THAT WAS RUNNING, CALLED AND ASKED ICU.
--- NOTE | 2019-05-01 18:34 | NUR ---
ICU NURSE WAS ABLE TO PLACE NEW IV TO RIGHT FOREARM.
[2019-05-01 20:00] VITALS: BP 135/60
--- NOTE | 2019-05-01 20:00 | NUR ---
RESTING IN BED WITH NO S/S OF ACUTE DISTRESS. IV TO THE RT FOREARM WITH NO REDNESS OR SWELLING NOTED. NC @2L AND VLADIMIR ALARM ON. VLADIMIR ALARM ON. WELPS NOTED TO AIYANA HANDS. DENIES NO NEEDS AT THIS TIME. CONTINUE PLAN OF CARE.
[2019-05-02] VITALS: BP 115/71
[2019-05-02 04:48] LABS: BASOPHILS 0.3 % (0-2); EOSINOPHILS 1.5 % (0-7); HEMATOCRIT 32.7 % (36.0-48.0); HEMOGLOBIN 9.7 g/dL (12-16); IMMATURE GRANULOCYTES 0.5 % (0-5); LYMPHOCYTES 8.6 % (15-50); MCH 24.4 pg (26.0-34.0); MCHC 29.7 g/dL (31.0-37.0); MCV 82.2 fL (80.0-100.0); MEAN PLATELET VOLUME 10.3 fL (7.4-10.4); MONOCYTES 11.9 % (2-11); NEUTROPHILS 77.2 % (40-80); PLATELET COUNT 295 10x3/uL (130-400); RBC 3.98 10x6/uL (4.00-5.40); RDW 30.1 % (11.5-14.5); WBC 11.6 10x3/uL (4.8-10.8)
[2019-05-02 05:00] LABS: ALBUMIN 1.4 g/dL (3.4-5.0); BILIRUBIN - TOTAL 0.28 mg/dL (0.2-1.3); CALCIUM 7.5 mg/dL (8.5-10.1); CARBON DIOXIDE 30.9 mmol/L (21.0-32.0); CREATININE - SERUM 0.8 mg/dL (0.6-1.3); PROTEIN - SERUM 6.5 g/dL (6.4-8.2); VANCOMYCIN - RANDOM 16.5 ug/mL (10.0-20.0)
[2019-05-02 05:01] LABS: ANION GAP 11.6 mmol/L (8-16); POTASSIUM - SERUM 3.5 mmol/L (3.5-5.1)
--- NOTE | 2019-05-02 05:01 | NUR ---
PT PULLED OUT IV, CATH INTACT. RESITED IV TO THE RT INNER FOREARM. DENIES NO FURTHER NEEDS.
[2019-05-02 07:57] VITALS: BP 110/50
[2019-05-02 12:11] VITALS: BP 112/53
--- NOTE | 2019-05-02 14:08 | NUR ---
SPOKE WITH PATSY SAUCEDA. WILL HAVE DR STRINGER LOOK AT PATIENTS HANDS. L HAND HAS OPEN AREA WITH BLOODY/TANISH DRAINAGE. WAS SWOLLEN BUT SWELLING DOWN SINCE DRAINAGE. HAVE BEEN COVERING WITH 4X4 GAUZE. PATIENT CONTINUALLY TAKES DRESSING OFF AND MESSES WITH SITE. KEEP ASKING HER NOT TO TOUCH SITE AND I KEEP REDRESSING IT. DAUGHTER AT BS AT THIS TIME. PATIENT BATHED AND LINENS CHANGED PER STAFF.
[2019-05-02 16:19] VITALS: BP 117/54
--- NOTE | 2019-05-02 16:46 | NUR ---
NO CHANGE IN ASSESSMENT. DAUGHTER AT BS. NO C/O PAIN. CL IN REACH. RESP EVEN AND UNLABORED.
--- NOTE | 2019-05-02 19:00 | NUR ---
BEDSIDE REPORT RECEIVED AND CARE OF PT ASSUMED. PT LYING IN HIGH LYONS'S POSITION WATCHING TV. IV TO RIGHT FA PATENT WITH NS INFUSING AT KVO. TELEMETRY IN PLACE. ALMODOVAR CATHETER DRAINING TO GRAVITY WITH YELLOW URINE IN COLLECTION BAG. WILL MONITOR FOR NEEDS.
[2019-05-02 20:52] VITALS: BP 142/83
--- NOTE | 2019-05-02 21:04 | NUR ---
HS MEDICATIONS GIVEN. FSBS 138 THIS CHECK REQUIRING NO COVERAGE PER SLIDING SCALE.
--- NOTE | 2019-05-02 22:15 | NUR ---
COLLECTED FLUID FROM PUSTULE ON RIGHT INGUINAL / LOWER ABDOMEN. PUNCTURED WITH 24 GUAGE NEEDLE AND COLLECTED DRAINAGE USING STERILE CULTURE SWABS. DELIVERED TO LAB.
--- NOTE | 2019-05-03 00:50 | NUR ---
PT PULLED OUT IV IN HER SLEEP.
--- NOTE | 2019-05-03 01:20 | NUR ---
UNABLE TO RE-SITE IV AFTER SEVERAL ATTEMPTS BY 3 DIFFERENT NURSES. ORDER PLACED FOR VASCULAR ACCESS NURSE TO ASSESS.
[2019-05-03 01:21] VITALS: BP 135/60
--- NOTE | 2019-05-03 03:30 | NUR ---
PT BATHED AND ALL LINENS AND GOWN CHANGED.
[2019-05-03 05:45] VITALS: BP 131/67
[2019-05-03 06:23] LABS: BASOPHILS 0.2 % (0-2); EOSINOPHILS 2.4 % (0-7); HEMATOCRIT 32.2 % (36.0-48.0); HEMOGLOBIN 9.5 g/dL (12-16); IMMATURE GRANULOCYTES 0.3 % (0-5); LYMPHOCYTES 12.5 % (15-50); MCH 24.5 pg (26.0-34.0); MCHC 29.5 g/dL (31.0-37.0); MEAN PLATELET VOLUME 10.6 fL (7.4-10.4); MONOCYTES 15.8 % (2-11); NEUTROPHILS 68.8 % (40-80); PLATELET COUNT 313 10x3/uL (130-400); RBC 3.88 10x6/uL (4.00-5.40); RDW 30.3 % (11.5-14.5)
[2019-05-03 06:43] LABS: ALBUMIN 1.4 g/dL (3.4-5.0); ANION GAP 7.9 mmol/L (8-16); BILIRUBIN - TOTAL 0.31 mg/dL (0.2-1.3); CALCIUM 7.9 mg/dL (8.5-10.1); CARBON DIOXIDE 33.5 mmol/L (21.0-32.0); CREATININE - SERUM 0.8 mg/dL (0.6-1.3); POTASSIUM - SERUM 3.4 mmol/L (3.5-5.1)
[2019-05-03 08:38] VITALS: BP 137/53
[2019-05-03 12:48] VITALS: BP 139/59
--- NOTE | 2019-05-03 13:11 | NUR ---
Top of right hand has a swollen area measuring 3cm x 3cm. It is blanched and draining thick red exudate. There is no odor. Top of left hand has a 4cm x 4cm x 1cm open area with thick red exudate. No odor is noted. Cleansed with 4x4s, covered with adaptic and dry 4x4s. Wound care will continue monitoring.
--- NOTE | 2019-05-03 16:08 | NUR ---
OT NOTE: PT CONTINUES AT SAME LEVEL OF FUNCTION. VERY SLOW TO MOVE AND BECOMES EASILY AGITATED IF SHE IS FELT RUSHED. BED MOB IWTH MAX ASSIST X 2; SIT TO STAND X 3 TRIALS WITH MAX ASSIST X 2...PT VERY FEARFUL AND BECOMES VERY ANXIOUS WHILE IN STANDING.. STATES, "THE WALKER IS FALLING..IM FALLING"..ATTEMPTS TO CALM PT WITH NO LUCK. AROM EXS ON EOB WITH FREQ REST BREAKS AND CUES TO STAY ON TASK. BACK TO BED AND BED MOB WITH MAX ASSIST; INCONT OF BOWEL AND REQUIRED CLEANING. PT WILL REQUIRE IP REHAB DUE TO REGRESSION SINCE ADMIT. SATISH FENG, OTR/L
[2019-05-03 16:43] VITALS: BP 127/51
[2019-05-03 20:20] VITALS: BP 134/68
--- NOTE | 2019-05-03 20:58 | NUR ---
OT NOTE: PT COMPLETED SUPINE TO SIT WITH MAX A X3. PT COMPLETED SIT TO STAND WITH MAX A X3. PT COMPLETED LB HYGIENE TASKS WITH TOTAL A. THANK YOU, ARNEL RILEY
--- NOTE | 2019-05-03 21:14 | NUR ---
REC'D. CHGE OF SHIFT WALKING ROUNDS.EYES CLOSED RESP. DEEP AND EVEN 02 3L NC. HEELS BRIDGED X2. WILL CONTINUE TO MONITOR FOR ANY CHGES AND FOLLOW CURRENT PLAN OF CARE.
[2019-05-04 00:40] VITALS: BP 147/58
[2019-05-04 05:41] VITALS: BP 156/72
[2019-05-04 07:13] LABS: ALBUMIN 1.5 g/dL (3.4-5.0); ALKALINE PHOSPHATASE 251 U/L (46-116); ALT (SGPT) 26 U/L (10-68); BILIRUBIN - TOTAL 0.28 mg/dL (0.2-1.3); CALC OSMOLALITY 287 mosm/kg (275-300); CALCIUM 8.3 mg/dL (8.5-10.1); CARBON DIOXIDE 35.3 mmol/L (21.0-32.0); CHLORIDE - SERUM 104 mmol/L (98-107); CREATININE - SERUM 0.7 mg/dL (0.6-1.3); GLUCOSE 111 mg/dL (74-106); SODIUM 144 mmol/L (136-145); UREA NITROGEN 12 mg/dL (7-18); eGFR NON AFRICAN AMERICAN 87 mL/min (90-120)
[2019-05-04 07:17] LABS: POTASSIUM - SERUM 4.1 mmol/L (3.5-5.1)
--- NOTE | 2019-05-04 07:37 | NUR ---
I have reviewed this patient and I concur with the Shift Assessment completed by the Licensed Practical Nurse today this shift.
[2019-05-04 07:49] LABS: BASOPHILS 0.4 % (0-2); EOSINOPHILS 2.3 % (0-7); HEMATOCRIT 33.8 % (36.0-48.0); IMMATURE GRANULOCYTES 0.4 % (0-5); LYMPHOCYTES 12.7 % (15-50); MCH 24.6 pg (26.0-34.0); MCHC 29.6 g/dL (31.0-37.0); MCV 83.3 fL (80.0-100.0); MEAN PLATELET VOLUME 10.8 fL (7.4-10.4); MONOCYTES 16.1 % (2-11); NEUTROPHILS 68.1 % (40-80); PLATELET COUNT 311 10x3/uL (130-400); RBC 4.06 10x6/uL (4.00-5.40); RDW 30.4 % (11.5-14.5); WBC 10.8 10x3/uL (4.8-10.8)
[2019-05-04 08:21] VITALS: BP 140/67
[2019-05-04 12:17] VITALS: BP 132/47
--- NOTE | 2019-05-04 15:43 | NUR ---
OT NOTE: PT EXHIBITS SELF LIMITING BEHAVIOR. PT COMPLETED SUPINE TO SIT WITH MAX A X3. PT ATTEMPT ON 2 OCCASSIONS FOR SIT TO STAND WITH MAX A X3. PT CONTINUALLY REPEATED "I CAN'T STAND, I CAN'T STAND." PT DECREASED MOTIVATION IS A BARRIER. THERAPY STAFF HAVE EDUCATED PT ON THE CORRELATION OF INCREASED PARTICIPATION AND INCREASED INDEPENDENCE. THANK YOU, ARNEL RILEY
--- NOTE | 2019-05-04 15:56 | NUR ---
OT NOTE: CONTINUES TO REQUIRE EXTENSIVE ASSIST AND ENCOURAGEMENT TO PERFORM MOBILITY TASKS. EOB WITH MAX ASSIST; SITTING BALANCE IS GOOD ONCE PT CAN GET SCOOTED TO EOB WITH MOD ASSIST AND EXTENDED TIME. ATTEMPTED TO STAND X 2 TRIALS BUT PT ONLY TOLERATED A FEW SECONDS STATING THAT HER " L ANKLE WONT LET ME DO IT" BACK TO BED AND REPOSITIONED IWTH MAX ASSIST. BLISTER TO BACK OF L HEEL; EDUCAATION ON IMPORTANCE OF MOVING IN BED TO PREVENT FURTHER SKIN BREAKDOWN. PT ABLE TO ROLL FROM SIDE TO SIDE ENOUGH TO REMOVE PRESSURE, HOWEVER, SHE USUALLY STAYS IN ONE POSITION. EDUCATED ON ROM EXS IN BED TO PREVENT FURTHER STIFFNESS AND WEAKNESS. PT WILL REQUIRE IP REHAB OR SNF. SATISH FENG, OTR/L
[2019-05-04 16:14] LABS: APPEARANCE HAZY (CLEAR); BILIRUBIN NEGATIVE (NEGATIVE); COLOR STRAW (YELLOW); GLUCOSE NEGATIVE (NEGATIVE); KETONE NEGATIVE (NEGATIVE); NITRITE NEGATIVE (NEGATIVE); PROTEIN NEGATIVE (NEGATIVE); UROBILINOGEN NORMAL (NORMAL)
[2019-05-04 16:15] LABS: EPITHELIAL CELLS OCC /hpf (0-5); WHITE CELLS - URINE 0-5 /hpf (NEGATIVE)
[2019-05-04 16:16] LABS: BACTERIA FEW /hpf (NEGATIVE); YEAST >1+ WITH HYPHAE /hpf (NONE SEEN)
[2019-05-04 16:34] VITALS: BP 153/80
[2019-05-04 21:15] VITALS: BP 135/81
--- NOTE | 2019-05-05 00:54 | NUR ---
REC'D IN BED DURING CHGE OF SHIFT WALKING ROUNDS.GOWN LEADS OFF REDRESSED/REPOSITIONED IN BED.DRSGS. TOP OF HANDS BILAT.HELL PROTECTOR TO LEFT HEEL UP ON TWO PILLOWS PER REQUEST.UNABLE TO PALPATE PEDAL PULSE FEET HYPERSENSITIVE.ALMODOVAR PATENT DRAINING ARIANE COLORED URINE. WILL CONTINUE TO MONITOR FOR ANY CHGES. IN NEUROVASCULAR STATUS AND FOLLOW CURRENT PLAN OF CARE.
[2019-05-05 01:04] VITALS: BP 153/75
[2019-05-05 05:50] VITALS: BP 136/78
--- NOTE | 2019-05-05 06:00 | NUR ---
I have reviewed this patient and I concur with the Shift Assessment completed by the Licensed Practical Nurse today this shift.
[2019-05-05 07:22] LABS: BASOPHILS 0.2 % (0-2); EOSINOPHILS 2.3 % (0-7); HEMATOCRIT 34.7 % (36.0-48.0); HEMOGLOBIN 10.3 g/dL (12-16); IMMATURE GRANULOCYTES 0.4 % (0-5); LYMPHOCYTES 13.7 % (15-50); MCH 24.8 pg (26.0-34.0); MCHC 29.7 g/dL (31.0-37.0); MCV 83.6 fL (80.0-100.0); MONOCYTES 12.6 % (2-11); NEUTROPHILS 70.8 % (40-80); PLATELET COUNT 352 10x3/uL (130-400); RBC 4.15 10x6/uL (4.00-5.40); RDW 30.3 % (11.5-14.5); WBC 12.4 10x3/uL (4.8-10.8)
[2019-05-05 07:29] LABS: ALBUMIN 1.7 g/dL (3.4-5.0); ALKALINE PHOSPHATASE 240 U/L (46-116); ALT (SGPT) 24 U/L (10-68); BILIRUBIN - TOTAL 0.41 mg/dL (0.2-1.3); CALC OSMOLALITY 280 mosm/kg (275-300); CALCIUM 8.4 mg/dL (8.5-10.1); CARBON DIOXIDE 35.8 mmol/L (21.0-32.0); CHLORIDE - SERUM 102 mmol/L (98-107); CREATININE - SERUM 0.7 mg/dL (0.6-1.3); GLUCOSE 114 mg/dL (74-106); POTASSIUM - SERUM 3.7 mmol/L (3.5-5.1); PROTEIN - SERUM 7.3 g/dL (6.4-8.2); SODIUM 141 mmol/L (136-145); UREA NITROGEN 11 mg/dL (7-18); eGFR NON AFRICAN AMERICAN 87 mL/min (90-120)
--- NOTE | 2019-05-05 08:00 | NUR ---
ASSESSMENT PER FLOW SHEET. PT IS WITHOUT DISTRESS.DRESSINGF TO BILATERAL HANDS.CALL LIGHT IN REACH
[2019-05-05 08:36] VITALS: BP 133/63
[2019-05-05 12:32] VITALS: BP 138/72
--- NOTE | 2019-05-05 13:11 | NUR ---
Rehab Note- Spoke w/ Audie w/ [employer] on behalf of [facility], states still in clinical review for inpatient acute rehab auth, states that she is sending an expidited email for this case due to it has been pending since Monday 04/30. Will continue to await determination. Thank you for this referral! Irina Fonseca RN Clinical Liaison, [facility] Rehab
--- NOTE | 2019-05-05 14:02 | NUR ---
NUTRITION F/U CHART REVIEWED, PT VISIT. PT TOLERATING DIABETIC DIET. ~50% INTAKE LUNCH TODAY. PT REPORTS SHE IS ALSO DRINKING 2 GLUCERNA SHAKES PER DAY. WILL CONTINUE TO PROVIDE DIET, GLUCERNA SHAKES. MONITOR PO INTAKE. RD FOLLOWING
[2019-05-05 16:28] VITALS: BP 145/79
--- NOTE | 2019-05-05 16:47 | NUR ---
OT NOTE: PT PERFORMED BETTER TODAY, HOWEVER, APPROX 40 MIN SPENT WITH PT. SHE BECOMES IRRITATED AND C/O THERAPIST RUSHING HER, HOWEVER, FEEL THAT SHE IS PURPOSEFULLY DISTRACTED. CONTINUES TO LOOK AT O2, IV LINES, TV..ANYTHING SHE CAN TO EXTEND TIME. 4 TRIALS OF SIT TO STAND WITH MOD ASSIST X 2. PT WAS ABLE TO BEAR WT FOR APPROX 5-10 SECONDS VS ALLOWING FULL WT ON THERAPISTS. EDUCATED AGAIN ON IMPORTANCE OF EXERCISING IN BED TO IMPROVE STRENGTH, OR AT LEAST PREVENT FURTHER DECLINE. PT REPORTS THAT SHE IS ABLE TO SIT ON EOB WITHOUT ASSIST WHEN PROVIDED ENOUGHT TIME, HOWEVER, TODAY, PT WAS ALLOWED ALMOST 13 MIN TO GET TO EOB WITH FREQ DISTRACTIONS, FINALLY ASKED PT TO ALLOW THERAPIST TO HELP HER AND REQIRED MAX ASSIST TO GET TO EOB. SATISH SALINAS, OTR/L
--- NOTE | 2019-05-05 18:46 | NUR ---
ATE SOME DINNER.SHE IS WITHOUT CHANGE.CONT PLAN OF CARE
--- NOTE | 2019-05-05 18:47 | NUR ---
OT NOTE: PT EXHIBITED AN INCREASE IN PARTICIPATION TODAY. HOWEVER, PT IS WEAK AND REQUIRED MOD A FOR SUPINE TO SIT FOR LE MANAGEMENT. PT HAS BREAKDOWN ON HEELS. PT REQUIRED EXTENSIVE ASSIST X2 FOR SIT TO STANDS. PT CONTINUES TO BE EASILY DISTRACTED AND REQUIRED CUES FOR ATTENTION TO TASK. PT WAS ABLE TO BEAR INCREASED WEIGHT IN LE TODAY. PT REQUIRED EXTENSIVE ASSIST WITH LB HYGIENE. THANK YOU,ARNEL RILEY
[2019-05-05 20:00] VITALS: BP 145/60
--- NOTE | 2019-05-05 23:10 | NUR ---
REC'D CHGE OF SHIFT IN BED.LYING ON LEFT SIDE EYES CLOSED RESP. DEEP AND EVEN.02 2L NC. DRSG HANDS BILAT DRY AND INTACT HANDS BILAT.BED LOW RAILS UP X2.BED ARMED. ALMODOVAR PATENT DRAING ARIANE COLORED URINE
[2019-05-06] VITALS: BP 139/63
[2019-05-06 04:00] VITALS: BP 152/85
--- NOTE | 2019-05-06 06:00 | NUR ---
I have reviewed this patient and I concur with the Shift Assessment completed by the Licensed Practical Nurse today this shift.
[2019-05-06 07:00] LABS: ALBUMIN 1.6 g/dL (3.4-5.0); ANION GAP 7.7 mmol/L (8-16); BILIRUBIN - TOTAL 0.4 mg/dL (0.2-1.3); CALCIUM 8.4 mg/dL (8.5-10.1); CARBON DIOXIDE 34.7 mmol/L (21.0-32.0); CREATININE - SERUM 0.8 mg/dL (0.6-1.3); POTASSIUM - SERUM 3.4 mmol/L (3.5-5.1); PROTEIN - SERUM 7.5 g/dL (6.4-8.2)
[2019-05-06 07:44] LABS: HEMATOCRIT 34.6 % (36.0-48.0); HEMOGLOBIN 10.3 g/dL (12-16); LYMPHOCYTES 11.4 % (15-50); MCH 24.8 pg (26.0-34.0); MCHC 29.8 g/dL (31.0-37.0); MCV 83.4 fL (80.0-100.0); MEAN PLATELET VOLUME 11.1 fL (7.4-10.4); NEUTROPHILS 73.9 % (40-80); RBC 4.15 10x6/uL (4.00-5.40); RDW 30.4 % (11.5-14.5); WBC 12.3 10x3/uL (4.8-10.8)
[2019-05-06 07:54] LABS: PLATELET COUNT 265 10x3/uL (130-400)
[2019-05-06 08:36] VITALS: BP 121/58
--- NOTE | 2019-05-06 12:28 | NUR ---
Rehab Note- Have spolen with Rebecca with [facility] on behalf of [facility] twice this AM and stilll awaiting determination on pending inpatient acute rehab authorization. Will continue to await & will call back if no return call. Thank you for this referral! Irina Fonseca RN Clinical Liaison, [facility] Rehab
--- NOTE | 2019-05-06 14:27 | NUR ---
OT NOTE: PT REFUSED ASSIST FOR EOB SITTING, STATED THAT SHE WANTED TO DO IT HERSELF. PT REUQIRED 28 MIN TO PERFORM SUPINE TO SIT; BECOMES AGITATED WHEN THERAPISTS ATTEMPT TO ASSIST HER.. STATES THAT WE ARE RUSHING HER. EXPLAINED TO PT THAT WE DO NOT HAVE THIS KIND OF TIME FOR 1 ACTIVITY. ALSO EXPLAINED THAT SHE WAS GOING TO HAVE TO GET SERIOUS ABOUT THERAPY AND FOCUS ON THE TASK AT HAND INSTEAD OF WORRYING ABOUT WHATS ON TV, WHO CALLS, WHOS AT THE DOOR, WHATS ON THE FLOOR, ETC...... BECAUSE OF THE LACK OF MOTIVATION AND FOCUS ON EVERYTHING EXCEPT WHAT SHE IS SUPPOSED TO BE DOING, MUCH OF THE TIME IS WASTED. MAX ASSIST X 2 FOR STANDING..ABLE TO STAND APPROX 30 SECONDS ON FIRST TRIAL.. 15 SECONDS ON SECOND TRIAL. BACK TO BED WITH MAX ASSIST; REPOSITIONED WITH MAX ASSIST X 2. SATISH FENG,OTR/L
--- NOTE | 2019-05-06 14:43 | NUR ---
OT NOTE: PT COMPLETED FACE WASH WITH SET UP. PT COMPLETED BUE AROM EXS. THANK YOU,ARNEL RILEY
[2019-05-06 14:44] VITALS: BP 110/64
[2019-05-06 16:36] VITALS: BP 136/59
--- NOTE | 2019-05-06 19:00 | NUR ---
BEDSIDE REPORT RECEIVED AND CARE OF PT ASSUMED. PT RESTING IN HIGH LYONS'S POSITION. NO IV AT THIS TIME. TELEMETRY IN PLACE PER ORDER. DRESSINGS ON BILATERAL HANDS DRY AND INTACT. ALMODOVAR CATHETER DRAINING TO GRAVITY WITH DARK YELLOW URINE IN COLLECTION BAG. WILL MONITOR FOR NEEDS.
--- NOTE | 2019-05-06 20:56 | NUR ---
HS MEDICATIONS GIVEN. FSBS 115 THIS CHECK REQUIRING NO COVERAGE PER SLIDING SCALE.
[2019-05-06 21:00] VITALS: BP 137/55
--- NOTE | 2019-05-06 21:00 | NUR ---
HS SNACK GIVEN: QING CHAO. WILL CONTINUE TO MONTIOR FOR NEEDS.
[2019-05-07 00:13] VITALS: BP 129/49
--- NOTE | 2019-05-07 01:39 | NUR ---
CHANGED DRESSINGS ON BOTH HANDS PER ORDER. REMOVED OLD DRESSINGS. CLEANSED WOUNDS WITH WOUND MATERIALS DIRECTOR AND PATTED DRY WITH STERILE 4X4'S. COVERED WITH ADAPTIC AND THEN 4X4'S. WRAPPED HANDS WITH KERLEX. PT HAS LARGE WOUNDS ON BACK OF BOTH HANDS WITH BLOODY THICK DRAINAGE ON BOTH. PT TOLERATED WELL.
[2019-05-07 05:14] VITALS: BP 150/71
[2019-05-07 08:27] LABS: ALBUMIN 1.6 g/dL (3.4-5.0); ANION GAP 5.9 mmol/L (8-16); BILIRUBIN - TOTAL 0.44 mg/dL (0.2-1.3); CALCIUM 8.3 mg/dL (8.5-10.1); CARBON DIOXIDE 34.4 mmol/L (21.0-32.0); CREATININE - SERUM 0.8 mg/dL (0.6-1.3); POTASSIUM - SERUM 3.3 mmol/L (3.5-5.1); PROTEIN - SERUM 7.5 g/dL (6.4-8.2)
[2019-05-07 08:46] VITALS: BP 154/58
--- NOTE | 2019-05-07 09:00 | NUR ---
ALERT AND ORIENTED X4 WITH DRESSINGS INTACT TO BILAT. HANDS WITH GOOD ROM. LORTAB GIVEN PRN FOR PAIN. TELEMETRY INTACT. ALMODOVAR CATH NOTED WITH BLOOD TINGED URINE. ABDOMENSOFT WITH BOWEL SOUNDS NOTED. ENCOURAGED TO USE CALL LIGHT FOR ASSSIT.
--- NOTE | 2019-05-07 11:10 | NUR ---
OT NOTE: ALLOWED PT TO SIT UP ON EOB WITHOUT ASSIST DUE TO EXTENDED TIME REQUIRED TO PERFORM SUPINE TO SIT. ALLOWED PT APPROX 20 MIN BEFORE ENTERING ROOM; ASSISTED PT TO GET FEET TO FLOOR, BUT SHE BECOMES IRRITATED WHEN WE ASSIST. ALLOWED PT TO ATTEMPT TO STAND WITHOUT ASSIST SHE STATES THAT SHE CAN WALK TO THE BATHROOM AND THEN BACK TO BED. ALLOWED APPROX 8 MIN FOR PT TO ATTEMPT IT HER WAY. EXPLAINED TO PT THAT WE WERE GOING TO ASSIST HER IN A MORE SAFE WAY. PT STOOD WITH MAX ASSIST; ABLE TO STAND FOR APPROX 5 SECONDS..INSTRUCTED PT TO STAND UP TALL AND TUCK IN BOTTOM, HOWEVER, SHE CONTINUES TO PUSH BACK ON TO THE BED. EXTENSIVE DISCUSSION WITH PT ON IMPORTANCE OF TRYING TO DO MUCH POSSIBLE ON HER OWN. INSTRUCTED PT THAT SHE CAN SIT UP ON EOB WITHOUT ASSIST FOR MEALS...SHE REQUIRES EXT TIME BUT NO PHYSICAL ASSIST. PT CONT TO BE UNCLEAR TO WHY SHE CANT WALK ANYMORE, HOWEVER, THIS IS DISCUSSED WITH HER DAILY. SATISH FENG, OTR/L
--- NOTE | 2019-05-07 11:56 | NUR ---
Recieved a fax from [facility] this patient has been approved for the acute inpatient rehab Auth# [id number]. She will be accepted to the rehab unit when she is medically stable and her medical workup has been completed. Discussed with the CM Divina Hastings. Shayy Shepherd RN Clinical Liaison, Rehab
[2019-05-07 12:39] LABS: BASOPHILS 0.2 % (0-2); EOSINOPHILS 1.6 % (0-7); HEMATOCRIT 34.8 % (36.0-48.0); HEMOGLOBIN 10.3 g/dL (12-16); IMMATURE GRANULOCYTES 0.3 % (0-5); LYMPHOCYTES 13.9 % (15-50); MCH 24.5 pg (26.0-34.0); MCHC 29.6 g/dL (31.0-37.0); MCV 82.9 fL (80.0-100.0); MONOCYTES 13.1 % (2-11); NEUTROPHILS 70.9 % (40-80); PLATELET COUNT 318 10x3/uL (130-400); RDW 30.2 % (11.5-14.5); WBC 12.2 10x3/uL (4.8-10.8)
--- NOTE | 2019-05-07 13:52 | NUR ---
DRESSINGS CHANGED ON BOTH HANDS. DR. SHARPE PRESENT. SLIGHT IMPROVEMENT NOTED ON LEFT HAND. IT IS ALSO NOTED THAT PT HAS A FLUID FILLED BLISTER ON HER L UPPER ARM AND ANOTHER ONE FORMING ON HER RIGHT UPPER ARM. NEW ORDERS RECEIVED.
[2019-05-07 14:03] VITALS: BP 145/73
--- NOTE | 2019-05-07 15:29 | NUR ---
OT NOTE: PT REQUIRED EXTENSIVE TIME AND ASSISTANCE WITH SIT TO STAND, BED MOB TASKS, AND LB HYGIENE TASKS. PT REQUIRED MAXIMAL ENCOURAGEMENT WITH MINIMAL FUNCTIONAL RETURN. PT IS EASILY DISTRACTED. PT EDUCATED ON THE IMPORTANCE OF INCREASED PARTICIPATION FOR BEST OUTCOME FOR INCREASED INDEPENDENCE. PT EXHIBITS SELF LIMITING BEHAVIOR. THANK YOU, ARNEL RILEY
[2019-05-07 17:33] VITALS: BP 136/75
--- NOTE | 2019-05-07 19:00 | NUR ---
BEDSIDE REPORT RECEIVED AND CARE OF PT ASSUMED. PT LYING IN LOW LYONS'S POSITION WITH EYES CLOSED. DRESSINGS ON BILATERAL HANDS DRY AND INTACT. LEFT MIDLINE PATENT WITH NS INFUSING AT KVO. TELEMETRY IN PLACE AND READING CONT A-FIB AT THIS ASSESSMENT. ALMODOVAR CATHETER DRAINING TO GRAVITY WITH YELLOW URINE IN COLLECTION BAG. WILL MONITOR FOR NEEDS.
--- NOTE | 2019-05-07 20:31 | NUR ---
HS MEDICATIONS GIVEN.
[2019-05-07 21:00] VITALS: BP 135/64
--- NOTE | 2019-05-07 21:05 | NUR ---
NOTICED BLOOD ALL OVER FRONT OF PT'S GOWN. SWOLLEN AREA ON LEFT FA HAS OPENED UP TO SRIDHAR SIZED SORE WITH BLOODY / PURALENT DRAINAGE. APPLIED WET TO DRY DRESSING PER EXISTING ORDERS FOR OTHER WOUNDS.
[2019-05-08 00:16] VITALS: BP 148/74
--- NOTE | 2019-05-08 00:21 | NUR ---
PT STRIPPING OFF GOWN AND TELEMETRY LEADS. REPLACED TELEMETRY PADS AND COVERED PT WITH SHEET.
--- NOTE | 2019-05-08 01:43 | NUR ---
CHANGED DRESSINGS ON HANDS AND LEFT FA. CLEANSED WOUNDS WITH WOUND WINDOW TINTER, AND THEN RINSED WITH NS. COVERED WOUNDS WITH NS MOISTENED 4X4'S; COVERED WITH DRY 4X4'S; AND WRAPPED WITH KERLEX. ON WOUND ON LEFT FA CLEANSED WITH WOUND WINDOW TINTER; RINSED WITH NS; COVERED WITH NS MOISTENED 4X4'S; AND COVERED WITH BORDER MEPILEX DRESSING. ALL WOUND BEDS WITH NEW GRANULATION.
--- NOTE | 2019-05-08 02:13 | NUR ---
PT BATHED AND ALL LINENS AND GOWN CHANGED. HEELS BRIDGED AND HEEL PROTECTORS IN PLACE. PT TURNED, PROPPED WITH PILLOWS TO LEFT SIDE. NEW MEPILEX DRESSINGS PLACED ON EACH BUTTOCK CHEEK TO COVER DECUBITUS ULCERATIONS. WOUNDS CLEANSED WITH WOUND REINSURANCE ACCOUNTANT PRIOR TO DRESSING.
[2019-05-08 05:07] VITALS: BP 138/777
[2019-05-08 06:21] LABS: HEMATOCRIT 34.5 % (36.0-48.0); HEMOGLOBIN 10.4 g/dL (12-16); MCH 24.8 pg (26.0-34.0); MCHC 30.1 g/dL (31.0-37.0); MCV 82.1 fL (80.0-100.0); PLATELET COUNT 304 10x3/uL (130-400); WBC 11.7 10x3/uL (4.8-10.8)
[2019-05-08 06:33] LABS: ALBUMIN 1.6 g/dL (3.4-5.0); ANION GAP 10.3 mmol/L (8-16); BILIRUBIN - TOTAL 0.44 mg/dL (0.2-1.3); CARBON DIOXIDE 32.3 mmol/L (21.0-32.0); CREATININE - SERUM 0.8 mg/dL (0.6-1.3); POTASSIUM - SERUM 3.6 mmol/L (3.5-5.1); PROTEIN - SERUM 6.8 g/dL (6.4-8.2)
[2019-05-08 07:19] LABS: ANISOCYTOSIS 1+; EOSINOPHILS 4 % (0-7); LYMPHOCYTES 12 % (15-50); MONOCYTES 7 % (2-11); NEUTROPHILS 75 % (40-80); PLATELET ESTIMATE NORMAL; TARGET CELLS 1+
--- NOTE | 2019-05-08 08:00 | NUR ---
ALERT AND ORIENTED X3. O2 2. N/C W/O DYSPNEA WITH BREATH SOUNDS DIMINISHED TO BLQ ANTERIOR. TEMEMETRY INTACT. DRESSINGS INTACT TO BILATERAL HANDS AND RT. F/A CALASEPTINE OINT. APPLIED TO COCCYX. ENCOURAGED TO USE CALL LIGHT FOR ASSSIT.
[2019-05-08 08:46] VITALS: BP 120/50
[2019-05-08 12:45] VITALS: BP 122/62
--- NOTE | 2019-05-08 13:46 | NUR ---
PT. SITTIN UP ON SIDE OF BED WITH VISITOR IN ROOM TALKING WITH CONTROLLED BALANCE.
[2019-05-08 18:02] VITALS: BP 109/66
--- NOTE | 2019-05-08 19:00 | NUR ---
BEDSIDE REPORT RECEIVED AND CARE OF PT ASSUMED. PT LYING IN HIGH LYONS'S POSITION. HEELS BRIDGED. ALMODOVAR CATHETER DRAINING TO GRAVITY WITH DARK YELLOW URINE IN COLLECTION BAG. DRESSINGS ON HANDS AND LEFT FA INTACT. WILL MONITOR FOR NEEDS.
[2019-05-08 19:41] VITALS: BP 130/64
--- NOTE | 2019-05-08 19:53 | NUR ---
HS MEDICATIONS GIVEN. FSBS 160 THIS CHECK REQUIRING COVERAGE WITH 2 UNITS INSULIN PER SLIDING SCALE. WILL CONTINUE TO MONITOR FOR NEEDS.
[2019-05-09 00:42] VITALS: BP 145/59
--- NOTE | 2019-05-09 02:45 | NUR ---
CHANGED ALL DRESSINGS: BILATERAL HAND WOUNDS: CLEANSED WITH WOUND CERTIFIED ART THERAPIST AND RINSED WITH SALINE. COVERED WITH NS MOISTENED 4X4'S, THEN DRY 4X4'S, THEN WRAPPED WITH KERLEX. WOUND BEDS RED AND MOIST WITH NEW GRANULATION TISSUE FORMING. BLOODY DRAINAGE ONLY. WOUND ON LEFT FA CLEANSED WITH WOUND CERTIFIED ART THERAPIST AND WET TO DRY DRESSING ALSO APPLIED. BUTTOCKS: X4 DECUBITIS ULCERATIONS ON BOTH BUTTOCKS. CLEANSED WITH WOUND CERTIFIED ART THERAPIST; PATTED DRY; AND APPLIED MEPILEX BORDER DRESSINGS ON BOTH BUT CHEEKS. LEFT HEEL WITH BLACK DRIED BLISTER. DRY MEPILEX DRESSING APPLIED AND HEELS BRIDGED. PT TOLERATED PROCEDURE WELL.
--- NOTE | 2019-05-09 02:54 | NUR ---
PT BATHED AND ALL LINENS AND GOWN CHANGED. HEELS BRIDGED AND PT TURNED TO LEFT SIDE PROPPED WITH PILLOWS.
[2019-05-09 04:48] VITALS: BP 124/61
[2019-05-09 08:02] VITALS: BP 141/56
--- NOTE | 2019-05-09 09:00 | NUR ---
ALERT AND ORIENTED X4 WITH DRESSING CHANGED ON PRIOR SHIFT WITH BATH GIVEN. DRESSINGS DRY AND INTACT TO BILAT. HANDS AND LT. FOREARM. MIDLINE NOTED TO LUE WITH NO S/S OF INFECTION/INFILTRATION. LORTAB GIVEN FOR BLE FOOT PAIN WITH GENERALIZED WEAKNESS NOTED. PEDAL PULSES NOTED WITH HEELS FLOATED WITH MEPILEX APPLIED FOR PREVENTION OF ALTERATIONIN SKIN INTEGRITY. ALMODOVAR CATH INTACT WITH BLOOD TINGED URINE NOTED. TELEMETRY INTACT AND DENEIS ANY CHEST PAIN OR DISCOMFORT. ENCOURAGED TO USE CALL LIGHT FOR ASSSIT. AND ASSSITED WITH TURNING.
[2019-05-09 11:30] LABS: BASOPHILS 0.2 % (0-2); HEMATOCRIT 34.9 % (36.0-48.0); HEMOGLOBIN 10.3 g/dL (12-16); IMMATURE GRANULOCYTES 0.2 % (0-5); LYMPHOCYTES 14.1 % (15-50); MCH 24.8 pg (26.0-34.0); MCHC 29.5 g/dL (31.0-37.0); MCV 83.9 fL (80.0-100.0); MONOCYTES 13.7 % (2-11); NEUTROPHILS 69.8 % (40-80); PLATELET COUNT 257 10x3/uL (130-400); RBC 4.16 10x6/uL (4.00-5.40); RDW 30.4 % (11.5-14.5); WBC 12.9 10x3/uL (4.8-10.8)
[2019-05-09 11:36] VITALS: BP 106/54
[2019-05-09 11:39] LABS: ALBUMIN 1.6 g/dL (3.4-5.0); ALKALINE PHOSPHATASE 207 U/L (46-116); ALT (SGPT) 25 U/L (10-68); BILIRUBIN - TOTAL 0.43 mg/dL (0.2-1.3); CALC OSMOLALITY 281 mosm/kg (275-300); CALCIUM 8.2 mg/dL (8.5-10.1); CHLORIDE - SERUM 103 mmol/L (98-107); CREATININE - SERUM 0.7 mg/dL (0.6-1.3); GLUCOSE 118 mg/dL (74-106); POTASSIUM - SERUM 3.9 mmol/L (3.5-5.1); PROTEIN - SERUM 6.9 g/dL (6.4-8.2); SODIUM 141 mmol/L (136-145); UREA NITROGEN 12 mg/dL (7-18); eGFR NON AFRICAN AMERICAN 87 mL/min (90-120)
[2019-05-09 16:57] VITALS: BP 124/51
--- NOTE | 2019-05-09 19:00 | NUR ---
BEDSIDE REPORT RECEIVED AND CARE OF PT ASSUMED. PT LYING IN LOW LYONS'S POSITION WITH EYES CLOSED. LEFT MIDLINE PATENT WITH VANCOMYCIN INFUSING. ALMODOVAR CATHETER DRAINING TO GRAVITY WITH ARIANE URINE IN COLLECTION BAG. TELEMETRY IN PLACE AND READING 128 UNCONTROLLED A-FIB AT THIS ASSESSMENT. DRESSINGS ON BILATERAL HANDS AND LEFT FA INTACT.
--- NOTE | 2019-05-09 20:00 | NUR ---
DR CARLISLE HERE ASSESSING PT...ALL DRESSINGS ON HANDS AND LEFT FA REMOVED. CLEANSED WOUNDS WITH WOUND FACULTY DEAN. WET TO DRY DRESSINGS APPLIED TO BILATERAL HANDS AND LEFT FA PER ORDER.
--- NOTE | 2019-05-09 20:34 | NUR ---
HS MEDICATIONS GIVEN. FSBS 113 THIS CHECK REQUIRING NO COVERAGE PER SLIDING SCALE.
[2019-05-09 20:42] VITALS: BP 165/60
[2019-05-10 01:34] VITALS: BP 149/64
--- NOTE | 2019-05-10 02:47 | NUR ---
PT WITH SEVERAL DIME TO SRIDHAR SIZED DECUBITIS ULCERS / SORES ON BUTTOCKS. CLEANSED AREA WITH WOUND THERAPIST PHYSICAL AND PATTED DRY. COVERED WTIH MEPILEX BORDER SACRUM DRESSING.
[2019-05-10 05:12] VITALS: BP 128/65
[2019-05-10 07:44] VITALS: BP 166/56
--- NOTE | 2019-05-10 07:52 | NUR ---
ALERT AND ORIENTED. LUNGS CLEAR BILATERALLY. HEART SOUNDS S1 AND S2 HEARD IN ALL LONG. BOWEL SOUNDS ACTIVE X 4. DRSGS TO BILATERAL TOP OF HANDS C/D/I. DRSG TO LFA C/D/I. REQUESTED LEFT ANKLE BE PLACED ON PILLOW. DENIES FURTHER NEEDS. ADDISON MIDLINE PATENT WITHOUT REDNESS. O2 IN PLACE AT 2L NC. BED LOW. CALL TOBIAS AND PERSONAL ITEMS IN REACH. WILL CONTINUE TO MONITOR.
[2019-05-10 10:08] LABS: BASOPHILS 0.3 % (0-2); EOSINOPHILS 2.6 % (0-7); HEMOGLOBIN 10.1 g/dL (12-16); IMMATURE GRANULOCYTES 0.3 % (0-5); LYMPHOCYTES 18.9 % (15-50); MCH 24.9 pg (26.0-34.0); MCHC 29.7 g/dL (31.0-37.0); MCV 83.7 fL (80.0-100.0); NEUTROPHILS 62.9 % (40-80); PLATELET COUNT 281 10x3/uL (130-400); RBC 4.06 10x6/uL (4.00-5.40); WBC 12.2 10x3/uL (4.8-10.8)
[2019-05-10 10:24] LABS: ALBUMIN 1.7 g/dL (3.4-5.0); ALKALINE PHOSPHATASE 215 U/L (46-116); ALT (SGPT) 24 U/L (10-68); CALC OSMOLALITY 279 mosm/kg (275-300); CALCIUM 8.2 mg/dL (8.5-10.1); CARBON DIOXIDE 30.9 mmol/L (21.0-32.0); CHLORIDE - SERUM 103 mmol/L (98-107); CREATININE - SERUM 0.7 mg/dL (0.6-1.3); GLUCOSE 103 mg/dL (74-106); POTASSIUM - SERUM 3.5 mmol/L (3.5-5.1); SODIUM 141 mmol/L (136-145); UREA NITROGEN 10 mg/dL (7-18); eGFR NON AFRICAN AMERICAN 87 mL/min (90-120)
--- NOTE | 2019-05-10 10:31 | NUR ---
SPOKE WITH DANYELLE AT AGRICULTURAL SERVICES DIRECTOR WHO STATES PATIENT IS AFIB NOT NORMAL SINUS DOCUMENTED IN ASSESSMENT. STATES NOTIFYING KOMAL GARNER.
[2019-05-10 11:52] VITALS: BP 137/80
--- NOTE | 2019-05-10 12:42 | NUR ---
RESTING IN BED. DENIES NEEDS. BED LOW. CALL TOBIAS AND PERSONAL ITEMS IN REACH. WILL CONTINUE TO MONITOR.
--- NOTE | 2019-05-10 14:15 | NUR ---
PATIENT STATES STILL NAUSEATED AND VOMITING. NO VOMIT NOTED TO BAG IN BED WITH PATIENT BUT BAG IN TRASHCAN WITH VOMIT. PRN PHENERGAN NOT DUE UNTIL 0. SCHEDULED CARAFATE NOT UNTIL 1729.
--- NOTE | 2019-05-10 14:21 | NUR ---
RESTING IN BED. DENIES NEEDS. WILL CONTINUE TO MONITOR.
--- NOTE | 2019-05-10 14:36 | NUR ---
OT NOTE: PT EXHIBITED INCREASED FUNCTIONAL I WITH SIT TO STAND. PT REQUIRED EXTENSIVE TIME FOR BED MOB TASKS. PT COMPLETED SUPINE TO SIT WITH SPV. PT COMPLETED EOB SITTING WITH SBA. PT COMPLETED SIT TO STAND WITH MIN A. PT COMPELTED HYGIENE TASKS WITH MAX A. THANK YOU, ARNEL RILEY
--- NOTE | 2019-05-10 15:26 | NUR ---
DANYELLE AT PROJECT ASSISTANT STATES PATIENT SHOWING 69 NORMAL SINUS WITH OCCASIONAL PVC.
--- NOTE | 2019-05-10 15:38 | NUR ---
Nutrition follow-up: Diet: consistent CHO PO intake ~50% of meals Labs reviewed Wt: 214# Will encourage increased po intake RDN following.
--- NOTE | 2019-05-10 15:52 | NUR ---
OT NOTE: PT PERFORMED BETTER TODAY. ALLOWED PT TO PERFORM BED MOB INCLUDING SUPINE TO SIT ON HER OWN TIME, SHE REQUIRED APPROX 25 MIN TO GET R LE ON FLOOR..AFTER THIS TIME, PT REQUIRED ASSIST TO GET L LE TO FLOOR. PT ATTEMPTED TO GENEVA HER OWN SHOES TODAY, HOWEVER, DUE TO INCREASED EDEMA, WE WERE UNABLE TO GET THEM ON HER FEET. EXTENSIVE EDUCATION ON BODY POSITIONING FOR SIT TO STAND.. HAD PT PUSH UP FROM BED VS PULLING UP ON WALKER AND THIS WAS EASIER FOR HER. CONT TO REQUIRE EXT ASSIST FOR SIT TO STAND, HOWEVER, PT WAS ABLE TO STAND FOR APPROX 1 MIN TODAY. ATTEMPTED TO TAKE STEP, HOWEVER, PT VERY FEARFUL AND BEGINS TO FALL BACKWARDS ON BED WITH ATTEMPTS TO MOVE FOOT. PT WAS ABLE TO PERFORM 2 TRIALS TODAY AND EACH TIME WAS BETTER THAN LAST WEEK. REQUIRES EXT ASSIST WITH TOILET HYGIENE WITH SMALL AMOUNT OF BM CLEANED FROM PT WHILE IN STANDING. PT DID NOT WANT TO LIE BACK DOWN AND HAD A VISITOR, SO PT WAS TOLD THAT SHE COULD SIT UP ON EOB, THIS WOULD ASSIST WITH IMPROVING TRUNK STRENGTH. PT WAS ABLE TO SCOOT BACK ON BED LATER, AND ONLY REQUIRED MIN ASSIST TO GET FEET BACK UP ON BED. HOWEVER, VERY LENGTHY TIME REQUIRED FOR ALL OF PTS MOVEMENTS DUE TO CONTINUED HIGH DISTRACTION LEVEL. SATISH FENG, OTR/L
--- NOTE | 2019-05-10 16:00 | NUR ---
DRSGS CHANGED PER ORDER.
[2019-05-10 16:36] VITALS: BP 136/43
--- NOTE | 2019-05-10 20:00 | NUR ---
A/O WITH NO SIGNS OF ACUTE DISTRESS. MIDLINE TO THE LT UPPER ARM, DRESSING INTACT. NC @2L AND ALMODOVAR IN PLACE. VLADIMIR ALARM ON. CLEAN/INTACT DRESSINGS TO THE AIYANA HANDS AND LT UPPER ARM. DENIES NO NEEDS AT THIS TIME. CONTINUE PLAN OF CARE.
[2019-05-10 21:08] VITALS: BP 151/55
[2019-05-11 01:05] VITALS: BP 139/44
[2019-05-11 04:38] VITALS: BP 157/75
[2019-05-11 07:03] LABS: BASOPHILS 0.2 % (0-2); EOSINOPHILS 1.9 % (0-7); HEMATOCRIT 32.4 % (36.0-48.0); HEMOGLOBIN 9.7 g/dL (12-16); IMMATURE GRANULOCYTES 0.4 % (0-5); LYMPHOCYTES 18.6 % (15-50); MCH 24.7 pg (26.0-34.0); MCHC 29.9 g/dL (31.0-37.0); MCV 82.4 fL (80.0-100.0); MONOCYTES 13.9 % (2-11); PLATELET COUNT 232 10x3/uL (130-400); RBC 3.93 10x6/uL (4.00-5.40); WBC 13.2 10x3/uL (4.8-10.8)
[2019-05-11 07:08] LABS: ALBUMIN 1.7 g/dL (3.4-5.0); BILIRUBIN - TOTAL 0.45 mg/dL (0.2-1.3); CALCIUM 8.4 mg/dL (8.5-10.1); CARBON DIOXIDE 30.4 mmol/L (21.0-32.0); CREATININE - SERUM 0.8 mg/dL (0.6-1.3); POTASSIUM - SERUM 3.4 mmol/L (3.5-5.1)
--- NOTE | 2019-05-11 07:47 | NUR ---
ALERT AND ORIENTED. LUNGS CLEAR BILATERALLY. HEART SOUNDS S1 AND S2 HEARD IN ALL LONG. BOWEL SOUNDS ACTIVE X 4. DRSGS TO RIGHT AND LEFT HAND C/D/I. DRSG TO LFA C/D/I. MEPILEX TO BOTTOM C/D/I. DRIED BLISTER TO LEFT HEEL. IV TO ADDISON PATENT WITHOUT REDNESS. DENIES PAIN. DENIES NEEDS. BED LOW. FALL PRECAUTIONS IN PLACE. CALL TOBIAS AND PERSONAL ITEMS IN REACH. WILL CONTINUE TO MONITOR.
[2019-05-11 08:37] VITALS: BP 140/51
--- NOTE | 2019-05-11 09:53 | NUR ---
CALLED PHARMACY TO REQUEST PATIENT'S KENALOG CREAM. STATES WILL BRING.
--- NOTE | 2019-05-11 10:15 | NUR ---
WOUND CARE PROVIDED PER ORDER.
--- NOTE | 2019-05-11 12:19 | NUR ---
REPOSTITIONED IN BED. DENIES NEEDS. WILL CONTINUE TO MONITOR.
--- NOTE | 2019-05-11 13:00 | NUR ---
PATIENT HR TO STAY CONTROLLED BELOW 100 FOR 24 HOURS FOR PATIENT TO BE ABLE TO DC TO REHAB PER ROLLED HAM LACER KAHLIL. ROLLED HAM LACER STATES IF HR CONTINUES TO STAY ABOVE 100 PAGE CARDIOLOGY.
[2019-05-11 13:27] VITALS: BP 123/68
--- NOTE | 2019-05-11 13:28 | NUR ---
PATIENT 66 SINUS RYTHM ON MONORAIL HOOKER.
--- NOTE | 2019-05-11 13:53 | NUR ---
PATIENT HEAR RATE 126 ON CLAM SHUCKING MACHINE TENDER. DR HOUGH.
--- NOTE | 2019-05-11 13:57 | NUR ---
SPOKE WITH DR MARTINEZ WHO STATES GIVE PATIENT 0.25MG DIGOXIN IV ONE TIME.
--- NOTE | 2019-05-11 14:16 | NUR ---
OT NOTE: PT PERFORMED MUCH BETTER TODAY. ABLE TO GET TO EOB WITHOUT ASSIST; ABLE TO GENEVA SHOES WITH SET UP AND EXT TIME; ABLE TO WASH FACE AND HANDS WITH CLOTH AND SET UP; SIT TO STAND WITH MOD ASSIST AND EXT PREPERATION TIME; TODAY PT WAS ABLE TO STAND WITH MOD ASSIST AND MAINTAIN STANDING WITH WALKER AND MIN ASSIST X 5 MIN. PT ALSO ABLE TO TAKE A FEW STEPS FORWARD AND BACKWARDS. WANTING TO STAY SITTING UP ON SIDE OF BED VS LIEING DOWN. SATISH FENG, OTR/L
--- NOTE | 2019-05-11 14:34 | NUR ---
OT NOTE: PT COMPLETED EOB SITTING WITH CGA. PT COMPLETED SIT TO STAND WITH MOD A. PT COMPLETED LB HYGIENE TASKS WITH MAX A. PT EXHIBITED INCREASED FUNCTIONAL ABILITY TODAY. THANK YOU,ARNEL RILEY
--- NOTE | 2019-05-11 15:00 | NUR ---
PATIENT HR 77 NORMAL SINUS ON ELECTRICIAN MACHINE SHOP.
--- NOTE | 2019-05-11 15:39 | NUR ---
RESTING IN BED. DENIES NEEDS. WILL CONTINUE TO MONITOR.
[2019-05-11 16:28] VITALS: BP 153/71
--- NOTE | 2019-05-11 18:06 | NUR ---
RESTING IN BED. ADDISON MIDLINE PATENT WITHOUT REDNESS. DENIES NEEDS. BED LOW. FALL PRECAUTIONS IN PLACE. CALL TOBIAS AND PERSONAL ITEMS IN REACH.
--- NOTE | 2019-05-11 20:00 | NUR ---
A/O WITH NO SIGNS OF DISTRESS. MIDLINE TO THE LT UPPER ARM, DRESSING INTACT. NC @2L AND ALMODOVAR IN PLACE. VLADIMIR ALARM ON. DRESSING TO THE AIYANA HANDS, CDI. DENIES NEEDS AT THIS TIME. CONTINUE PLAN OF CARE.
[2019-05-11 21:03] VITALS: BP 148/69
[2019-05-12 01:21] VITALS: BP 140/55
[2019-05-12 05:06] VITALS: BP 144/73
[2019-05-12 06:15] LABS: ALBUMIN 1.7 g/dL (3.4-5.0); ALKALINE PHOSPHATASE 217 U/L (46-116); ALT (SGPT) 21 U/L (10-68); BILIRUBIN - TOTAL 0.41 mg/dL (0.2-1.3); CALC OSMOLALITY 279 mosm/kg (275-300); CALCIUM 8.4 mg/dL (8.5-10.1); CARBON DIOXIDE 31.3 mmol/L (21.0-32.0); CHLORIDE - SERUM 103 mmol/L (98-107); CREATININE - SERUM 0.7 mg/dL (0.6-1.3); GLUCOSE 99 mg/dL (74-106); POTASSIUM - SERUM 3.7 mmol/L (3.5-5.1); PROTEIN - SERUM 7.2 g/dL (6.4-8.2); SODIUM 141 mmol/L (136-145); UREA NITROGEN 10 mg/dL (7-18); eGFR NON AFRICAN AMERICAN 87 mL/min (90-120)
[2019-05-12 06:44] LABS: BASOPHILS 0.3 % (0-2); HEMATOCRIT 33.5 % (36.0-48.0); IMMATURE GRANULOCYTES 0.3 % (0-5); LYMPHOCYTES 19.5 % (15-50); MCH 24.9 pg (26.0-34.0); MCHC 29.9 g/dL (31.0-37.0); MCV 83.3 fL (80.0-100.0); MEAN PLATELET VOLUME 10.7 fL (7.4-10.4); MONOCYTES 15.5 % (2-11); NEUTROPHILS 62.4 % (40-80); PLATELET COUNT 249 10x3/uL (130-400); RBC 4.02 10x6/uL (4.00-5.40); WBC 12.6 10x3/uL (4.8-10.8)
--- NOTE | 2019-05-12 07:20 | NUR ---
PT RESTING QUIETLY IN BED. RESP EVEN AND UNLABORED. O2 @ 2L NC IN PLACE. DRESSING TO BILAT HANDS C/D/I AND LEFT FOREARM. LEFT UPPER ARM MIDLINE WITH NS @ 10ML/HR INFUSING VIA PUMP. SITE WITHOUT REDNESS OR EDEMA. PT DENIES PAIN AT THIS TIME. CL WITHIN REACH. ENCOURAGED TO CALL WITH NEEDS.
[2019-05-12 08:20] VITALS: BP 132/62
[2019-05-12 11:08] LABS: PLATELET ESTIMATE NORMAL
[2019-05-12 11:09] LABS: ROULEAUX OCC
[2019-05-12] MEDS ORDERED: Xopenex 0.63 MG INH UPD (11:13)
[2019-05-12] MEDS ORDERED: BETAPACE 80 MG80 MG PO (11:13)
[2019-05-12] MEDS ORDERED: FLORAJEN3 CAPS460 MG PO (11:14)
[2019-05-12] MEDS ORDERED: COREG12.5 MG PO (11:14)
[2019-05-12] MEDS ORDERED: NORCO-7.5 PO (11:14)
[2019-05-12] MEDS ORDERED: PROTONIX40 MG PO (11:15)
[2019-05-12] MEDS ORDERED: CARAFATE1 G PO (11:15)
[2019-05-12] MEDS ORDERED: CALMOSEPTINE OI71 GM TOPICAL (11:15)
[2019-05-12] MEDS ORDERED: KENALOG 0.1% OI80 GM TOPICAL (11:15)
[2019-05-12] MEDS ORDERED: HUMALOG 30100 UNITS/ SC (11:15)
--- NOTE | 2019-05-12 12:04 | MORECARE ---
CASE MANAGEMENT DISCHARGE SUMMARY PATIENT: GRZEGORZ DURÁN UNIT: [id number] ADM DATE: 04/13/19 AGE: 73 : 47 SEX: F ROOM/BED: D.2237 AUTHOR: LETICIA,DOC PHYSICIAN: REFERRING PHYSICIAN: YENNY STRINGER MD DATE OF SERVICE: 05/12/19 Discharge Plan Patient Name: GRZEGORZ DURÁN Facility: [facility]:[place] : 1945 Planned Disposition: Home Anticipated Discharge Date: Discharge Date: Expected LOS: Initial Reviewer: [email or web address] Initial Review Date: 04/14/2019 Generated: 05/12/19 1:04 pm Comments DCP- Discharge Planning Updated by [email or web address]: Divina Hastings on 05/12/19 10:[address] Patient Name: GRZEGORZ DURÁN Encounter No: [id number] : 1945 Primary Insurance: [employer] ADV Anticipated DC Date: Planned Disposition: Home External Planned Provider: : DCP follow-up note: Patient and sister in agreement with discharge plan. No changes to plan. Going to inpatient rehab today. Case management will follow and assist as needed. Divina Hastings DCP- Discharge Planning Updated by [id number]: Divina Hastings on 04/30/19 12:[address] CM MET AGAIN WITH PATIENT AND SISTER PER HER REQUEST. THEY WOULD LIKE INPATIENT REHAB AT [facility] AND IF INSURANCE DOES NOT AUTHORIZE, WOULD LIKE A REFERRAL SENT TO [facility]. SISTER AND PATIENT STATES THEY DO NOT WANT TO CHOOSE ANY OTHER CHOICES UNTIL THEY HAVE BEEN DENIED. I PLACED A REHAB PRESCREENING ORDER. I HAVE INFORMED PATIENT AND SISTER THAT IF SHE CANNOT TOLERATE 3 HOURS OF THERAPY A DAY, HER INSURANCE WILL NOT APPROVE INPATIENT REHAB. CM WILL CONTINUE TO FOLLOW AND ASSIST WITH DISCHARGE PLANNING/NEEDS. DCP- Discharge Planning Updated by [id number]: Divina Hastings on 04/30/19 9:[address] Spoke with patient about inpatient rehab vs SNF. I provided her with a list of SNF. I informed her to speak with her sister when she arrives about the different rehab facilities, voices understanding. I will meet with her and her sister when they arrive. CM will continue to follow and assist with discharge planning/needs. DCP- Discharge Planning Updated by [id number]: Divina Sheffieldearl on 04/23/19 12:[address] Called to the room by patient's sister. Patient is sitting in the chair. Patient's sister states they want to know how to get transferred to [facility]. I asked her why she requests a transfer and she states that her "heart doctor is at [facility]." I informed her that she would need an accepting physician at [facility] and it would also be a lateral transfer and she would be responsible for the transportation if accepted. They do not request a transfer at this time. CM will continue to follow and assist with discharge planning/needs. DCP- Discharge Planning Updated by [id number]: Divina Hastings on 04/14/19 1:[address] Patient Name: GRZEGORZ DURÁN Admission Status: Elective Accout number: [id number] Admission Date: 04-13-2019 : 1945 Admission Diagnosis: Attending: YENNY STRINGER Current LOS: 1 Anticipated DC Date: Planned Disposition: Home Primary Insurance: [employer] ADV Discharge Planning Comments: CM met with patient to complete initial dc planning assessment. CM educated patient on the CM role and verbal consent given by patient to complete assessment. Patient lives at home with her sister. At discharge she plans to return home and feels this is a safe discharge. CM discussed availability of home health, rehab and additional DME. Patient denied known discharge needs at this time. CM will continue to follow and assist with dc plans/needs. Laundry Room Attendant: Divina Darling DCPIA - Discharge Planning Initial Assessment Updated by [id number]: Divina Darling on 04/14/19 2:35 pm * Is the patient Alert and Oriented? Yes * How many steps to enter\\exit or inside your home? 5/0 * PCP Dr. Raymond * Pharmacy [facility] [address] * Preadmission Environment Home with Family * ADLs Independent * Equipment Cane Other * Other Equipment Built in shower bench in shower * List name and contact numbers for known caregivers / representatives who currently or will assist patient after discharge: Claire duran - [phone] * Verbal permission to speak to the caregivers and representatives has been obtained from the patient. Yes * Community resources currently utilized None * Additional services required to return to the preadmission environment? No * Can the patient safely return to the preadmission environment? Yes * Has this patient been hospitalized within the prior 30 days at any hospital? No Coverage Notice Reviewer: [id number] Helen Hastings Notice Issued Date-Time: 04/30/2019 13:54 Notice Type: Patient Choice Letter Notice Delivered To: Patient Relationship to Patient: Self Digital Strategy Manager Name: Delivery Method: HAND - Hand Delivered Lilliana Days: Prior Verbal Notification: Recipient Understood Notice: Yes Recipient Signature: Yes Med Rec Note Co-signed by Attending: Coverage Notice Comment: K[facility] Reviewer: [id number] Helen Hastings Notice Issued Date-Time: 05/12/2019 11:55 Notice Type: IM Discharge Notice Notice Delivered To: Patient Relationship to Patient: Self Digital Strategy Manager Name: Delivery Method: HAND - Hand Delivered Lilliana Days: Prior Verbal Notification: Recipient Understood Notice: Yes Recipient Signature: Med Rec Note Co-signed by Attending: Coverage Notice Comment: IMM explained, signed by her sister per her request ( her hands are in bandages), given, copy placed in MR Last DP export: 04/30/19 1:05 Patient Name: GRZEGORZ DURÁN Page 15914 at 1204 All edits/amendments must be made on the electronic document DICTATION DATE: 05/12/[address] ATTENDANT: LUCY 05/12/19 1204 RPT#: [id number] DC DATE: STATUS: ADM IN [facility] [address] [place] [address] END OF REPORT
--- NOTE | 2019-05-12 12:45 | NUR ---
DRESSINGS TO BILAT HANDS AND LEFT FOREARM CHANGED. AREAS CLEANED WITH SOAP AND WATER. ALL AREAS WITH PINK WOUND BEDS, WITH BLOOD FLOW NOTED. KENALOG APPLIED TO AREAS AND WRAPPED WITH KERLEX. PT NIRALI WELL
--- NOTE | 2019-05-12 12:49 | NUR ---
OT NOTE: PT CONTINUES TO IMPROVE DAILY. PT WAS MOTIVATED TO GET UP THIS AM AND EAGER TO ATTEMPT TO STAND. THOUGH SHE CONTINUES TO REQUIRE EXTENSIVE TIME TO PERFORM ALL ACTIVITIES, SHE IS AT LEAST INITIATING TASKS NOW, WHICH SHE WAS NOT DOING BEFORE. PT WAS ABLE TO GENEVA B SHOES WHILE SITTING ON EOB WITH EXT TIME AND SET UP. PERFORMED SIT TO STAND WITH EXT TIME, WALKER, AND MIN ASSIST X 2. ABLE TO STAND APPROX 3-4 MIN X 3 TRIALS. ATTEMPTED TO TAKE A FEW STEPS BUT STILL HAS DIFFICULTY MOVING L LE DUE TO REPORTED PAIN IN ANKLE. PRAACTICED WT SHIFTING WHILE IN STANDING WITH USE OF WALKER AND MIN ASSIST. EDUCATED ON UE EXS TO BE PERFORMED WHILE SITTING ON EOB. SATISH FENG, OTR/L
[2019-05-12 13:41] VITALS: BP 138/53
--- NOTE | 2019-05-12 16:24 | NUR ---
REPORT CALLED TO REHAB REGARDING TRANSFER OF PT TO FACILITY. TALKED WITH RYANN. PT TAKEN VIA W/C WITH ALL PERSONAL BELONGINGS. MIDLINE TO LEFT UPPER ARM INTACT, F/C PATENT TO GRAVITY.
--- NOTE | 2019-05-16 13:50 | MORECARE ---
CASE MANAGEMENT DISCHARGE SUMMARY PATIENT: GRZEGORZ DURÁN UNIT: [id number] ADM DATE: 04/13/19 AGE: 73 : 46 SEX: F ROOM/BED: D.2237 AUTHOR: LETICIADOC PHYSICIAN: REFERRING PHYSICIAN: YENNY STRINGER MD DATE OF SERVICE: 05/16/19 Discharge Plan Patient Name: GRZEGORZ DURÁN Facility: [facility]:[place] : 1945 Planned Disposition: Home Anticipated Discharge Date: Discharge Date: 05/12/2019 Expected LOS: Initial Reviewer: [email or web address] Initial Review Date: 04/14/2019 Generated: 05/16/19 2:50 pm Comments DCP- Discharge Planning Updated by [email or web address]: Divina Hastings on 05/12/19 10:[address] Patient Name: GRZEGORZ DURÁN Encounter No: [id number] : 1945 Primary Insurance: [employer] ADV Anticipated DC Date: Planned Disposition: Home External Planned Provider: : DCP follow-up note: Patient and sister in agreement with discharge plan. No changes to plan. Going to inpatient rehab today. Case management will follow and assist as needed. Divina Hastings DCP- Discharge Planning Updated by [email or web address]: Divina Hastings on 04/30/19 12:[address] CM MET AGAIN WITH PATIENT AND SISTER PER HER REQUEST. THEY WOULD LIKE INPATIENT REHAB AT [facility] AND IF INSURANCE DOES NOT AUTHORIZE, WOULD LIKE A REFERRAL SENT TO [facility]. SISTER AND PATIENT STATES THEY DO NOT WANT TO CHOOSE ANY OTHER CHOICES UNTIL THEY HAVE BEEN DENIED. I PLACED A REHAB PRESCREENING ORDER. I HAVE INFORMED PATIENT AND SISTER THAT IF SHE CANNOT TOLERATE 3 HOURS OF THERAPY A DAY, HER INSURANCE WILL NOT APPROVE INPATIENT REHAB. CM WILL CONTINUE TO FOLLOW AND ASSIST WITH DISCHARGE PLANNING/NEEDS. DCP- Discharge Planning Updated by [email or web address]: Divina Hastings on 04/30/19 9:[address] Spoke with patient about inpatient rehab vs SNF. I provided her with a list of SNF. I informed her to speak with her sister when she arrives about the different rehab facilities, voices understanding. I will meet with her and her sister when they arrive. CM will continue to follow and assist with discharge planning/needs. DCP- Discharge Planning Updated by [email or web address]: Divina Hastings on 04/23/19 12:[address] Called to the room by patient's sister. Patient is sitting in the chair. Patient's sister states they want to know how to get transferred to [facility]. I asked her why she requests a transfer and she states that her "heart doctor is at [facility]." I informed her that she would need an accepting physician at [facility] and it would also be a lateral transfer and she would be responsible for the transportation if accepted. They do not request a transfer at this time. CM will continue to follow and assist with discharge planning/needs. DCP- Discharge Planning Updated by [email or web address]: Divina Hastings on 04/14/19 1:[address] Patient Name: GRZEGORZ DURÁN Admission Status: Elective Accout number: [id number] Admission Date: 04-13-2019 : 1945 Admission Diagnosis: Attending: YENNY STRINGER Current LOS: 1 Anticipated DC Date: Planned Disposition: Home Primary Insurance: [employer]ARE ADV Discharge Planning Comments: CM met with patient to complete initial dc planning assessment. CM educated patient on the CM role and verbal consent given by patient to complete assessment. Patient lives at home with her sister. At discharge she plans to return home and feels this is a safe discharge. CM discussed availability of home health, rehab and additional DME. Patient denied known discharge needs at this time. CM will continue to follow and assist with dc plans/needs. Blow Molding Machine Tender: Divina Hastings DCPIA - Discharge Planning Initial Assessment Updated by [email or web address]: Divina Hastings on 04/14/19 2:35 pm * Is the patient Alert and Oriented? Yes * How many steps to enter\\exit or inside your home? 5/0 * PCP Dr. Raymond * Pharmacy [facility] on [address] * Preadmission Environment Home with Family * ADLs Independent * Equipment Cane Other * Other Equipment Built in shower bench in shower * List name and contact numbers for known caregivers / representatives who currently or will assist patient after discharge: Claire duran - [phone] * Verbal permission to speak to the caregivers and representatives has been obtained from the patient. Yes * Community resources currently utilized None * Additional services required to return to the preadmission environment? No * Can the patient safely return to the preadmission environment? Yes * Has this patient been hospitalized within the prior 30 days at any hospital? No Coverage Notice Reviewer: [id number] Helen Hastings Notice Issued Date-Time: 04/30/2019 13:54 Notice Type: Patient Choice Letter Notice Delivered To: Patient Relationship to Patient: Self Employment Clerk Name: Delivery Method: HAND - Hand Delivered Lilliana Days: Prior Verbal Notification: Recipient Understood Notice: Yes Recipient Signature: Yes Med Rec Note Co-signed by Attending: Coverage Notice Comment: KYLEE FOR [facility] INPATIENT REHAB AND [facility] Reviewer: [id number] Helen Hastings Notice Issued Date-Time: 05/12/2019 11:55 Notice Type: IM Discharge Notice Notice Delivered To: Patient Relationship to Patient: Self Employment Clerk Name: Delivery Method: HAND - Hand Delivered Lilliana Days: Prior Verbal Notification: Recipient Understood Notice: Yes Recipient Signature: Med Rec Note Co-signed by Attending: Coverage Notice Comment: IMM explained, signed by her sister per her request ( her hands are in bandages), given, copy placed in MR Last DP export: 05/12/19 11:04 Patient Name: GRZEGORZ DURÁN Page [id number] at 1350 All edits/amendments must be made on the electronic document DICTATION DATE: 05/16/19 1350 SEMICONDUCTOR ENGINEER: LUCY 05/16/19 1350 RPT#: [id number] DC DATE:05/12/19 STATUS: DIS IN [facility] [address] [place] [address] END OF REPORT
== END 2019-05-12 16:32 | DRG 987 ==
LOC: EDBD 11:35 → D.MS 11:35
PROVIDERS: Emergency Medicine; Family Medicine; General Practice; Internal Medicine Gastroenterology; Internal Medicine Hematology & Oncology; ADMIT Internal Medicine Nephrology; ATTEND Internal Medicine Nephrology
PROC: 0DB78ZX Excision of Stomach, Pylorus, Via Natural or Artificial Opening Endoscopic, Diagnostic (ICD-10-PCS; principal; 2019-04-14 08:38)
PROC: 0JBK0ZZ Excision of Left Hand Subcutaneous Tissue and Fascia, Open Approach (ICD-10-PCS; 2019-05-04)
PROC: 0JBJ0ZZ Excision of Right Hand Subcutaneous Tissue and Fascia, Open Approach (ICD-10-PCS; 2019-05-04)
PROC: 05HC33Z Insertion of Infusion Device into Left Basilic Vein, Percutaneous Approach (ICD-10-PCS; 2019-05-07)
DX: K25.0 Acute gastric ulcer with hemorrhage (principal); E43 Unspecified severe protein-calorie malnutrition; D62 Acute posthemorrhagic anemia; I82.443 Acute embolism and thrombosis of tibial vein, bilateral; L88 Pyoderma gangrenosum; D72.829 Elevated white blood cell count, unspecified; Z79.01 Long term (current) use of anticoagulants; D50.9 Iron deficiency anemia, unspecified; I10 Essential (primary) hypertension; E87.6 Hypokalemia; M19.90 Unspecified osteoarthritis, unspecified site; E11.65 Type 2 diabetes mellitus with hyperglycemia; K21.0 Gastro-esophageal reflux disease with esophagitis; B96.81 Helicobacter pylori [H. pylori] as the cause of diseases classified elsewhere; R00.0 Tachycardia, unspecified; I48.91 Unspecified atrial fibrillation; E11.51 Type 2 diabetes mellitus with diabetic peripheral angiopathy without gangrene; L89.626 Pressure-induced deep tissue damage of left heel

== ENCOUNTER 2019-05-12 16:13 | Inpatient (IN) | payer MEDICARE, MEDICAID ==
[~2019-05-12] VITALS: Ht 167.6 cm; Wt 96.2 kg
[~2019-05-12 16:13] MED LIST: BETAPACE 80 MG80 MG PO; BUMEX2 MG PO; CALMOSEPTINE OI71 GM TOPICAL; CARAFATE1 G PO; COREG12.5 MG PO; DIOVAN320 MG PO; FLORAJEN3 CAPS460 MG PO; GLUCOPHAGE1000 MG PO; GLUCOTROL XL 1010 MG PO; HUMALOG 30100 UNITS/ SC; HYDRALAZINE HCL50 MG PO; HYDROCHLOROTHIA25 MG PO; JANUVIA100 MG PO; KENALOG 0.1% OI80 GM TOPICAL; LANOXIN125 MCG PO; NORCO-7.5 PO; NORVASC10 MG PO; PRADAXA75 MG PO; PROTONIX40 MG PO; Xopenex 0.63 MG INH UPD; ZOFRAN ODT4 MG/UDTAB PO; [UNRECOGNIZED DRUG - SUPPLY]
--- NOTE | 2019-05-12 16:53 | NUR ---
OT NOTE: PT COMPLETED SIT TO STAND WITH CGA/MIN A. PT COMPLETED EOB SITTING WITH SPV. PT COMPLETED BED MOB TASKS WITH CGA/MIN A. PT COMPLETED DOFF SHOES WITH SPV. THANK YOU,ARNEL RILEY
--- NOTE | 2019-05-12 19:15 | NUR ---
BEDSIDE REPORT COMPLETE. PT SITTING UP IN W/C WATCHING TV. ALERT AND ORIENTED X4. DENIES ANY NEEDS OR PAIN. RR EVEN AND UNLABORED. CL IN REACH
--- NOTE | 2019-05-12 20:00 | NUR ---
PT SITTING UP IN BED WATCHING TV. ALERT AND ORIENTED X4. DENIES ANY PAIN OR NEEDS. ADMIT ASSESSMENT, HX, AND SUICIDE ASSESSMENT INITIATED. LEFT UPPER ARM MIDLINE PATENT, DRSG C/D/I CHANGED 05/12/19. BILATERAL HAND OPEN WOUND R/T IV INFILTRATION. LEFT FOREARM OPEN WOUND R/T IV. WOUND CARE DRSG ORDERS FOLLOWED. BUTTOCKS BILATERAL SIDES STAGE II PRESSURE ULCER X7 CLEANSED AREAS WITH WOUND CLEANSER, PAT DRY 4X4 AND APPLIED MEPILEX DRSG. LEFT HEEL BLACKED AREA APPROX 1CM X 1CM SOFT AND TENDER. HEEL PROTECTORS ON AND HEELS BRIDGED. RIGHT HIP SMALL OPEN AREA APPROX 0.5CM X 0.5CM APPLIED 2X2 MEPILEX DRSG. VS STABLE. CL IN REACH. FALL PRECAUTIONS IN PLACE. WILL CONTINUE TO MONITOR
--- NOTE | 2019-05-12 20:15 | NUR ---
PT LYING IN BED WATCHING TV. ALERT AND ORIENTED X4. DENIES ANY NEEDS OR PAIN. ADMIN ASSESSMENT, HX, AND SUICIDE ASSESSMENT INITIATED. WILL CONSULT WOUND CARE FOR PRESSURE ULCERS ON BUTTOCKS CLEANSED AREAS AND APPLIED MEPILEX DRESSING. BILATERAL HAND AND LEFT FOREARM DRSG C/D/I. WILL CHANGE WHEN PHARMACY DELIVERS KENALOG OINTMENT. FC PATENT AND FREE OF KINKS. LEFT FOREARM MIDLINE PATENT AND DRSG C/D/I. VS STABLE. CL IN REACH. WILL CONTINUE TO MONITOR
[2019-05-12 22:29] VITALS: BP 148/65; BMI 34.3
--- NOTE | 2019-05-13 00:11 | NUR ---
QUIET HOURS. PT LYING IN BED ON RIGHT SIDE EYES CLOSED RESTING. RR EVEN AND UNLABORED. CL IN REACH
--- NOTE | 2019-05-13 03:57 | NUR ---
PT SITTING UP ON SIDE OF BED. DENIES ANY NEEDS OR PAIN. RR EVEN AND UNLABORED. CL IN REACH
[2019-05-13 06:32] LABS: BASOPHILS 0.5 % (0-2); EOSINOPHILS 2.1 % (0-7); HEMOGLOBIN 10.3 g/dL (12-16); IMMATURE GRANULOCYTES 0.4 % (0-5); LYMPHOCYTES 18.8 % (15-50); MCH 24.8 pg (26.0-34.0); MCHC 30.3 g/dL (31.0-37.0); MCV 81.9 fL (80.0-100.0); NEUTROPHILS 62.2 % (40-80); PLATELET COUNT 246 10x3/uL (130-400); RBC 4.15 10x6/uL (4.00-5.40); WBC 13.5 10x3/uL (4.8-10.8)
--- NOTE | 2019-05-13 06:55 | NUR ---
PT LYING IN BED WATCHING TV. DENIES ANY NEEDS OR PAIN. RR EVEN AND UNLABORED. CL IN REACH
--- NOTE | 2019-05-13 09:00 | NUR ---
PT AM MEDS ADMINISTERED. PT REQ AND REC'D PRN PAIN MEDICATION AT THIS TIME. PT SITTING UP ON EDGE OF BED, DENIES FURTHER NEEDS. WCTM.
[2019-05-13 15:14] VITALS: Ht 167.6 cm; Wt 96.2 kg
--- NOTE | 2019-05-13 16:55 | RHP ---
PATIENT: GRZEGORZ DURÁN MEDICAL RECORD: [id number] ACCOUNT: [id number] LOCATION:[facility]1115 : [birth year] ADMISSION DATE: 05/12/19 REHABILITATION HISTORY AND PHYSICAL EXAMINATION POST ADMISSION PHYSICIAN EXAMINATION ADMITTING DIAGNOSIS: Disuse myopathy. HISTORY OF PRESENT ILLNESS: The patient is a 73-year-old female patient admitted secondary to disuse myopathy. She actually was a direct admit on 04/13/2019 to [facility] with abdominal pain, nausea, leukocytosis, low blood sugar and anemia. She has been referred to GI from the PCP office for anemia, but continued to have persistent nausea and epigastric pain. GI was consulted. She additionally had been having some low blood sugar readings. EGD on 04/14/2019 showed a large penetrating antral ulcer and active bleeding. She had acute blood loss anemia. She was placed on antibiotics. Stool studies, blood cultures and also electrolyte protocol throughout her stay. The patient was continued on appropriate home medications. She has had ultrasound for bilateral lower extremity DVTs. Currently, she is not on anticoagulant therapy secondary to her penetrating antral ulcer. Dr. Beltre had been consulted and the patient was placed on complete bed rest, vancomycin and Levaquin. She has been followed throughout her stay and an IVC filter was placed. She has had an echo done. She has been placed on Pradaxa. The patient still complains of right foot pain. Apparently, was unable to ambulate with therapy secondary to right lower extremity pain, but refused a pain pill prior to this. She is on fentanyl as needed. The patient reports that she is doing somewhat better. The patient also developed small open wounds to her posterior hand. Surgery was consulted for recommendations. Currently, there are being wrapped daily and kept clean. Wound cultures have been done. Dermatology was also consulted for blisters. The existing wounds are stable, but smaller. New lesions have been appearing. She is on triamcinolone for these. She is also having some wet-to-dry dressings placed. Previously, she was living with her sister, was moderately independent with ADLs and mobility using a cane. Currently, she is mod to max assist for ADLs and mobility. She is very fatigued, has limited flexion, extension of her lower extremities. Proximal muscle strength is decreased and she is mod to max assist for ADLs, mod to max assist for sit to stand and bed to chair. She wants to regain her strength and hopefully return back home at her prior level of functioning. 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 PAST MEDICAL HISTORY: Significant for diabetes, got a history of peripheral vascular disease, AFib, chronic hypokalemia. She got a history of acid reflux, arthritis. PAST SURGICAL HISTORY: None. ALLERGIES: No known drug allergies. CURRENT MEDICATIONS: Include triamcinolone to use topically. She is on digoxin 0.125 mg daily. She is on Bumex 2 mg daily. She is on Januvia 100 mg daily, HISTORY AND PHYSICAL [id number] GRZEGORZ DURÁN carvedilol 12.5 mg b.i.d. with meals, Protonix 40 mg b.i.d., Carafate 1 g before every meal and at bedtime, sotalol 80 mg b.i.d. She is on Pradaxa 75 mg b.i.d. She is on electrolyte protocol at this time. She is on Xopenex updrafts as needed, Sedan 7.5 one tab every 4 hours p.r.n., Zofran 4 mg every 6 hours as needed and Calmoseptine. HABITS: No alcohol or tobacco use. FAMILY HISTORY: Noncontributory. SOCIAL HISTORY: The patient hopes to return back home once again to get back to her prior level of functioning. REVIEW OF SYSTEMS: GENERAL: Does complain of weakness and fatigue. HEENT: Denies cold, cough, or congestion. CARDIOVASCULAR: Denies any chest pain. PHYSICAL EXAMINATION: VITAL SIGNS: Stable, afebrile. GENERAL: A morbidly obese female in no acute distress, alert upon exam. HEENT: Normocephalic and atraumatic. Mucosa is moist. NECK: Supple. No lymphadenopathy. LUNGS: Clear in upper kay. HEART: Irregular rate and rhythm. ABDOMEN: Soft, benign, and nondistended. Positive bowel sounds times 4. EXTREMITIES: No clubbing, cyanosis or edema. She does have some noted blisters and dressings to her extremities. NEUROLOGIC: She does have noted proximal muscle weakness and difficulty arising from the bed to chair. LABORATORY DATA: Her white count 13.5, H&H of 10 and 34 and platelet count is 246. Her sodium is not available, but her blood sugars have ranged from 98 up to 148. ASSESSMENT: This 73-year-old female patient admitted to rehab with a working diagnosis of disuse myopathy. The patient has potential to make improvement. We instituted the following multidisciplinary therapies including but not limited to physical, occupational, respiratory, speech, nutritional services, prosthetics and orthotics. Given her complex medical condition and risk for more complications, rehabilitation services cannot be provided at a low level of care such as skilled nurse facility. PLAN: 1. Admit to [facility] for intensive inpatient therapy to include the following disciplines; A. Physical therapy to improve gait, all transfer skills and bed mobility to a modified independent level. B. Occupational therapy to a modified independent level. C. Case management to assist with discharge planning and placement options. D. Nutrition to assist with nutritional needs. E. Rehabilitation nursing to assist in monitoring the patient's underlying medical conditions and to assist with any type of bowel or bladder management. 2. The patient's current medication and medical care will be continued. 3. The patient will be placed on standard fall precautions. HISTORY AND PHYSICAL [id number] GRZEGORZ DURÁN 4. The patient's estimated length of stay is approximately 7-10 days. 5. We will discuss this patient during care team staff meeting this week. TRANSINT:[id number] Voice Confirmation ID: [id number] DOCUMENT ID: [id number] SHYANNE notes whether there has been none or any medical/functional change since admission: - No change since pre-admission screen. SHYANNE attests patient continues to be appropriate for IRF: - Continues to be appropriate. JASMIN WOOD MD at 1125 CC: [id number] DICTATION DATE: 05/13/19 1307 NEEDLE LOOM TENDER: 05/13/19 1520 ADM IN [place] [id number] [place] [id number]
[2019-05-13 18:21] LABS: APPEARANCE SL CLDY (CLEAR); BILIRUBIN NEGATIVE (NEGATIVE); COLOR STRAW (YELLOW); GLUCOSE NEGATIVE (NEGATIVE); KETONE NEGATIVE (NEGATIVE); NITRITE NEGATIVE (NEGATIVE); PROTEIN TRACE mg/dL (NEGATIVE); UROBILINOGEN NORMAL (NORMAL)
[2019-05-13 18:22] LABS: BACTERIA FEW /hpf (NEGATIVE); EPITHELIAL CELLS 0-5 /hpf (0-5); RED CELLS - URINE 0-5 /hpf (0-5); WHITE CELLS - URINE 0-5 /hpf (NEGATIVE)
[2019-05-13 18:23] LABS: YEAST >1+ WITH HYPHAE /hpf (NONE SEEN)
[2019-05-13 20:00] VITALS: BP 139/59
--- NOTE | 2019-05-13 20:00 | NUR ---
PATIENT RECEIVED SITTING UP IN BED WATCHING TV. ASSESSMENT & VITAL SIGNS DONE. NO C/O PAIN OR DISTRESS. DRESSINGS DRY & INTACT ON HANDS. HEELS BRIDGED. ALMODOVAR PATENT WITH YELLOW COLORED URINE. BED LOW. CALL LIGHT WITHIN REACH. ALARM ON. WILL CONTINUE TO MONITOR.
--- NOTE | 2019-05-14 00:58 | NUR ---
PATIENT TELEMETRY ELECTRODES REPLACED. NEW TELEMETRY READING 65 SR. PATIENT FEET ELEVATED ON PILLOWS. CALL LIGHT WITHIN REACH. WILL CONTINUE TO MONITOR.
--- NOTE | 2019-05-14 02:43 | NUR ---
I have reviewed this patient and I concur with the Shift Assessment completed by the Licensed Practical Nurse today this shift.
--- NOTE | 2019-05-14 02:51 | NUR ---
PATIENT EYES CLOSED. RESPIRATIONS 18 & EVEN. BED LOW. CALL LIGHT WITHIN REACH. WILL CONTINUE TO MONITOR.
[2019-05-14 07:56] LABS: ANION GAP 13.5 mmol/L (8-16); CALCIUM 8.7 mg/dL (8.5-10.1); CARBON DIOXIDE 25.3 mmol/L (21.0-32.0); CREATININE - SERUM 0.9 mg/dL (0.6-1.3); POTASSIUM - SERUM 3.8 mmol/L (3.5-5.1)
[2019-05-14 08:19] VITALS: BP 147/60
[2019-05-14 08:29] LABS: HEMATOCRIT 34.2 % (36.0-48.0); HEMOGLOBIN 10.4 g/dL (12-16); MCH 25.2 pg (26.0-34.0); MCHC 30.4 g/dL (31.0-37.0); MEAN PLATELET VOLUME 10.4 fL (7.4-10.4); PLATELET COUNT 258 10x3/uL (130-400); RBC 4.12 10x6/uL (4.00-5.40); WBC 14.1 10x3/uL (4.8-10.8)
--- NOTE | 2019-05-14 09:34 | NUR ---
PT HAS OPEN ULCERATIONS ON TOP OF BOTH HANDS AND LEFT FOREARM. CURRENTLY BEING TREATED BY GENTLY CLEANING WITH SOAP AND WATER AND APPLYING TRIAMCINOLONE OINTMENT AND COVERING WITH DRESSINGS. THERE IS A DEEP TISSUE INJURY ON LEFT HEEL (HEEL PROTECTORS BEING USED WHILE IN BED). DR. MENA IS SEEING PT. RIGHT BUTTOCK HAS A 2CM X 2CM STAGE 2 PRESSURE INJURY AND LEFT BUTTOCK HAS A 2CM X 2CM STAGE 2 PRESSURE INJURY. AREAS ARE BEING PROTECTED BY MEPILEX. PT HAS ALSO BEEN INSTRUCTED TO TURN FROM SIDE TO SIDE AND REPOSITION WHILE IN BED. WOUND CARE IS MONITORING.
[2019-05-14 11:39] LABS: ANISOCYTOSIS OCC; EOSINOPHILS 1 % (0-7); HYPOCHROMASIA OCC; LYMPHOCYTES 10 % (15-50); MONOCYTES 10 % (2-11); NEUTROPHILS 77 % (40-80); PLATELET ESTIMATE NORMAL; SMUDGE CELLS OCC; TARGET CELLS OCC
--- NOTE | 2019-05-14 19:20 | NUR ---
PT IS RESTING IN BED WITH EYES OPEN. ALERT AND ORIENTED X 3. DENIES ACUTE PAIN OR DISCOMFORT AT THIS TIME. VSS. DRESSINGS TO AIYANA ARMS ARE ON, BUT IS DISSARRAY. ALL DRESSINGS CHANGED PER ORDERS. ALMODOVAR CATH IS PATENT AND DRAINING TO A GRAVITY BAG. TELEMETRY UNIT IS ON AND INTACT. AIYANA FEET HAVE HEEL PROTECTORS ON AND INTACT, AND HEELS ARE ELEVATED UP OFF THE MATTRESS WITH A PILLOW. SR'S ARE UP X 2 IN BED. CALL LIGHT AND BEDSIDE TABLE ARE WITHIN EASY REACH.
[2019-05-14 19:32] VITALS: BP 143/67
--- NOTE | 2019-05-14 22:26 | NUR ---
PT IS RESTING IN BED WATCHING TV. NO NEEDS VOICED.
--- NOTE | 2019-05-15 00:30 | NUR ---
RESTING IN BED WITH EYES CLOSED.
--- NOTE | 2019-05-15 02:38 | NUR ---
I have reviewed this patient and I concur with the Shift Assessment completed by the Licensed Practical Nurse today this shift.
[2019-05-15 07:05] LABS: BASOPHILS 0.4 % (0-2); EOSINOPHILS 2.2 % (0-7); HEMATOCRIT 34.1 % (36.0-48.0); HEMOGLOBIN 10.3 g/dL (12-16); IMMATURE GRANULOCYTES 0.3 % (0-5); LYMPHOCYTES 17.8 % (15-50); MCH 25.2 pg (26.0-34.0); MCHC 30.2 g/dL (31.0-37.0); MCV 83.6 fL (80.0-100.0); MEAN PLATELET VOLUME 10.1 fL (7.4-10.4); MONOCYTES 16.1 % (2-11); NEUTROPHILS 63.2 % (40-80); PLATELET COUNT 258 10x3/uL (130-400); RBC 4.08 10x6/uL (4.00-5.40)
[2019-05-15 08:00] VITALS: BP 109/76
--- NOTE | 2019-05-15 19:15 | NUR ---
GREETED PATIENT AND INTRODUCED MYSELF. PATIENT IS SITTIN ON SIDE OF BED AT THIS TIME WATCHING TV. RESPIRATIONS EVEN. NO S/S OF DISTRESS. DENIES ANY NEEDS AT THIS TIME. CALL LIGHT IN REACH.
[2019-05-15 19:45] VITALS: BP 125/83
--- NOTE | 2019-05-15 22:30 | NUR ---
PTS. OLD DRESSINGS REMOVED. WOUNDS CLEANED AND PATTED DRY. KENALOG CREAM APPLIED TO ALL WOUNDS, NON ADHERENT PAD APPLIED AND COVERED WITH 4X4, CURLIX APPLIED AND SECURED WITH MEDIPORE TAPE. PATIENT TOLEREATED PROCEDURE. WOUND BEDS ARE BEEFY RED IN [place]PERANCE.
--- NOTE | 2019-05-16 01:23 | NUR ---
PT. AWAKE LAYING IN BED WITH COVERS PULLED OFF AND PAJAMA TOP OPEN. PT. STATES THAT SHE GOT HOT BUT DENIES ANY NEEDS AT THIS TIME. RESPIRATIONS EVEN. NO S/S OF DISTRESS. CALL LIGHT IN REACH.
--- NOTE | 2019-05-16 03:52 | NUR ---
PT. AWAKE AND WATCHING TV. DENIES ANY NEEDS AT THIS TIME. CALL LIGHT IN REACH.
[2019-05-16 05:28] LABS: BASOPHILS 0.3 % (0-2); HEMATOCRIT 32.4 % (36.0-48.0); HEMOGLOBIN 9.9 g/dL (12-16); IMMATURE GRANULOCYTES 0.3 % (0-5); LYMPHOCYTES 16.8 % (15-50); MCH 25.4 pg (26.0-34.0); MCHC 30.6 g/dL (31.0-37.0); MCV 83.3 fL (80.0-100.0); MEAN PLATELET VOLUME 10.1 fL (7.4-10.4); NEUTROPHILS 63.6 % (40-80); PLATELET COUNT 251 10x3/uL (130-400); RBC 3.89 10x6/uL (4.00-5.40); WBC 14.2 10x3/uL (4.8-10.8)
[2019-05-16 08:00] VITALS: BP 143/55
--- NOTE | 2019-05-16 21:09 | NUR ---
PT IS RESTING IN BED WITH EYES OPEN. ALERT AND ORIENTED X 3. DENIES ACUTE PAIN OR DISCOMFORT AT THIS TIME.O2 IS ON @ 2LPM PER NC. NO SOB NOTED. MIDLINE IV TO LEFT UPPER ARM IS INTACT. TELEMETRY UNIT IS ON AND INTACT. DRESSING ARE ALL ON AND INTACT. SR'S ARE UP X 2 IN BED. CALL LIGHT AND BEDSIDE TABLE ARE WITHIN EASY REACH.
[2019-05-16 21:27] VITALS: BP 151/68
--- NOTE | 2019-05-17 00:54 | NUR ---
I have reviewed this patient and I concur with the Shift Assessment completed by the Licensed Practical Nurse today this shift.
--- NOTE | 2019-05-17 04:48 | NUR ---
PT RESTING IN BED WITH EYES OPEN. NO NEEDS VOICED. PT STATES SHE IS HOT AND DOES NOT NEED HER BLANKETS.
[2019-05-17 07:09] LABS: ANION GAP 12.6 mmol/L (8-16); CALCIUM 8.6 mg/dL (8.5-10.1); CARBON DIOXIDE 28.7 mmol/L (21.0-32.0); CREATININE - SERUM 0.8 mg/dL (0.6-1.3); POTASSIUM - SERUM 3.3 mmol/L (3.5-5.1)
[2019-05-17 07:50] LABS: BASOPHILS 0.4 % (0-2); EOSINOPHILS 3.4 % (0-7); HEMATOCRIT 31.7 % (36.0-48.0); HEMOGLOBIN 9.6 g/dL (12-16); IMMATURE GRANULOCYTES 0.2 % (0-5); LYMPHOCYTES 19.9 % (15-50); MCH 25.5 pg (26.0-34.0); MCHC 30.3 g/dL (31.0-37.0); MCV 84.3 fL (80.0-100.0); MEAN PLATELET VOLUME 10.4 fL (7.4-10.4); MONOCYTES 14.6 % (2-11); NEUTROPHILS 61.5 % (40-80); PLATELET COUNT 206 10x3/uL (130-400); RBC 3.76 10x6/uL (4.00-5.40); WBC 12.8 10x3/uL (4.8-10.8)
[2019-05-17 08:00] VITALS: BP 137/58
--- NOTE | 2019-05-17 10:37 | NUR ---
STILL SITTING IN WC IN ROOM. HAS BEEN UP WORKING WITH THERAPY THIS MORNING. SLOW TO TAKE MEDS STATING "THERE ARE TOO MANY". SHE DID FINALLY TAKE THEM BUT SHE WAS SLOW TO DO SO. DSG IN PLACE TO LEFT HEEL. DSG NOT SOILED
[2019-05-17 11:17] LABS: PLATELET ESTIMATE NORMAL
[2019-05-17 11:18] LABS: ANISOCYTOSIS OCC; TARGET CELLS OCC
[2019-05-17 11:19] LABS: ROULEAUX OCC; SCHISTOCYTES OCC
--- NOTE | 2019-05-17 13:59 | NUR ---
Nutrition Follow-up: Diet: Diabetic + Glucerna with meals PO intake: ~50% average x 6 meals; Reports good appetite. States that she is drinking Glucerna TID. Last BM: 05/16/19 x 2. WT: 212# (05/13/19), no new wt Significant meds: SSI, Januvia, bumex. Labs noted: Glucose 120mg/dL. Noted pt is followed by wound care for: stage II PU x 2 to buttocks, DTPI to L heel, and open ulcerations to hands and arm. Debridement on 05/16/19. Recommend continue current nutrition regimen. Encourage PO intake. Will add Jac BID for nutritionally aided wound healing. RD following.
--- NOTE | 2019-05-17 15:18 | NUR ---
PATIENT ADMITTED TO REHAB FROM ACUTE FLOOR. DR. HILLIARD IS HER PCP AND DME AT HOME IS A CANE. HER DISCHARGE PLANS ARE FOR HER TO RETURN HOME WITH FAMILY. WILL CONTINUE TO FOLLOW WITH PATIENT.
--- NOTE | 2019-05-17 19:00 | NUR ---
PT IS RESTING IN BED WITH EYES OPEN. ALERT AND ORIENTED X 3. DENIES ACUTE PAIN OR DISCOMFORT. PT HAS HER TELEMETRY UNIT OFF AND SITTING ON HER BEDSIDE TABLE. NO ORDER FOR TELEMETRY NOTED. BOX TAKEN BACK TO PCU. DRESSINGS TO PTS ARMS CHANGED AT THIS TIME PER HER REQUEST. DRESSING TO LEFT FOOT IS CDI. SR'S ARE UP X 3 IN BED. CALL LIGHT AND BEDSIDE TABLE ARE WITHIN EASY REACH.
[2019-05-17 22:03] VITALS: BP 151/68
--- NOTE | 2019-05-17 23:00 | NUR ---
PT IS RESTING QUIETLY IN BED WITH EYES CLOSED. RESPS ARE EVEN AND UNLABORED. NO ACUTE DISTRESS NOTED.
--- NOTE | 2019-05-18 03:00 | NUR ---
PT SITTING ON SIDE OF BED. NO NEEDS VOICED.
--- NOTE | 2019-05-18 06:11 | NUR ---
PT SITTING ON THE SIDE OF HER BED. NO NEEDS VOICED.
[2019-05-18 07:34] LABS: BASOPHILS 0.5 % (0-2); EOSINOPHILS 3.4 % (0-7); HEMATOCRIT 32.6 % (36.0-48.0); HEMOGLOBIN 9.9 g/dL (12-16); IMMATURE GRANULOCYTES 0.2 % (0-5); LYMPHOCYTES 20.5 % (15-50); MCH 25.6 pg (26.0-34.0); MCHC 30.4 g/dL (31.0-37.0); MCV 84.5 fL (80.0-100.0); MEAN PLATELET VOLUME 10.3 fL (7.4-10.4); MONOCYTES 14.9 % (2-11); NEUTROPHILS 60.5 % (40-80); PLATELET COUNT 238 10x3/uL (130-400); RBC 3.86 10x6/uL (4.00-5.40); WBC 11.3 10x3/uL (4.8-10.8)
--- NOTE | 2019-05-18 15:29 | NUR ---
CLINICAL UPDATES FAXED TO [facility] AT , AUTH. # [id number] WITH CONFORMATION RECIVED
--- NOTE | 2019-05-18 18:30 | NUR ---
HAS BEEN UP AND DOWN MOST OF THE DAY. USUALLY PICKING AT BANDAGES ON FOOT AND ARMS. SHE CAN BE ARGUMENTATIVE WITH STAFF OVER TASKS. F/C DRAINING CLOUDY COLORED URINE. HAD INCONT BM IN BRIEF TODAY. SKIN BREAKDOWN TO BUTTOCK AND BUE HAVE RED, BEEFY RED CENTERS. ON BUTTOCKS, X2 WOUNDS NOTED TO BE APPX 1.5 CM DEEP WITH CIRCULAR EDGES. IS CHAIR BOUND. CAN STAND BUT NOT WALK.
[2019-05-18 19:40] VITALS: BP 149/57
--- NOTE | 2019-05-18 19:43 | NUR ---
PATIENT RECEIVED SITTING UP IN BED. HEEL PROTECTORS ON. ASSESSMENT & VITAL SIGNS DONE. CALL LIGHT WITHIN REACH. ALARM ON. WILL CONTINUE TO MONITOR.
--- NOTE | 2019-05-19 00:25 | NUR ---
PATIENT AWAKE DRESSING TO LEFT HEEL CHANGED PER DR. DYSON. PATIENT LEFT HAND REDRESSED AFTER PATIENT PULLED PREVIOUS DRESSING OFF. PATIENT INFORMED HAND WON'T HEAL IF DRESSING NOT ON. PATIENT STATED "THANK YOU. CALL LIGHT WITHIN REACH. WILL CONTINUE TO MONITOR.
--- NOTE | 2019-05-19 00:40 | NUR ---
I have reviewed this patient and I concur with the Shift Assessment completed by the Licensed Practical Nurse today this shift.
[2019-05-19 07:18] LABS: BASOPHILS 0.6 % (0-2); EOSINOPHILS 3.3 % (0-7); HEMATOCRIT 33.8 % (36.0-48.0); HEMOGLOBIN 9.7 g/dL (12-16); IMMATURE GRANULOCYTES 0.3 % (0-5); LYMPHOCYTES 23.1 % (15-50); MCH 25.1 pg (26.0-34.0); MCHC 28.7 g/dL (31.0-37.0); MCV 87.6 fL (80.0-100.0); MONOCYTES 15.4 % (2-11); NEUTROPHILS 57.3 % (40-80); PLATELET COUNT 239 10x3/uL (130-400); RBC 3.86 10x6/uL (4.00-5.40); WBC 10.3 10x3/uL (4.8-10.8)
[2019-05-19 07:37] LABS: ANION GAP 12.7 mmol/L (8-16); CALCIUM 7.8 mg/dL (8.5-10.1); CARBON DIOXIDE 25.1 mmol/L (21.0-32.0); CREATININE - SERUM 0.9 mg/dL (0.6-1.3); POTASSIUM - SERUM 3.8 mmol/L (3.5-5.1)
[2019-05-19 08:00] VITALS: BP 131/64
--- NOTE | 2019-05-19 08:00 | NUR ---
PATIENT SITTING ON THE SIDE OF THE BED TO EAT BREAKFAST. BED ALARM DECORATING MACHINE OPERATOR LIGHT WITHIN REACH. VOICES NO NEEDS AT THIS TIME. WILL CONTINUE WITH PLAN OF CARE
--- NOTE | 2019-05-19 10:04 | NUR ---
PATIENT IN REHAB ROOM. WORKING WITH PHYSICAL THERAPIST. DENIES ANY PAIN/DISC AT THIS TIME.
--- NOTE | 2019-05-19 12:00 | NUR ---
I have reviewed this patient and I concur with the Shift Assessment completed by the Licensed Practical Nurse today this shift.
--- NOTE | 2019-05-19 13:41 | NUR ---
OCCUPATIONAL THERAPIST WORKING WITH PATIENT. HELPING PATIENT WITH A SHOWER. DRESSING CHANGED TO BUE AND LEFT HEEL AFTER SHOWER.
--- NOTE | 2019-05-19 14:33 | NUR ---
Nutrition Follow-up: Diet: Diabetic + Glucerna TID + Jac BID PO intake: 50% average x last 3 meals; reports that appetite has improved some. I believe that her sister is also bringing in some foods from outside. States that she is drinking some of the glucerna. She is not drinking Jac but states that she will start drinking it. Explained importance of Jac. Last BM: 05/16/19 x 2. WT: 212# (05/13/19), no new wt Significant meds: januvia, bumex, SSI. Labs noted: Glu 145. Noted stage II PU/open wounds to BUE and L heel per nursing skin assessment. Continue current nutrition regimen. Encouraged intake of Jac. RD following.
--- NOTE | 2019-05-19 16:25 | NUR ---
CARE TEAM MEETING: PATIENT FAMILY ATTENDED MEETING. HER QUESTIONS AND CONCERNS WERE ADDRESSED. IF PATIENT IS UNABLE TO RETURN HOME SHE WOULD LIKE A REFERRAL TO [facility].TENATIVE DISCHARGE DATE IS 05/28/19. WILL CONTINUE TO FOLLOW WITH PATIENT
[2019-05-19 18:43] VITALS: BP 136/51
--- NOTE | 2019-05-19 19:30 | NUR ---
GREETED PATIENT AND INTRODUCED MYSELF HER NURSE. PATIENT IS SIITNG UP IN BED WATCHING TV. RESPIRATIONS EVEN. NO S/S OF DISTRESS. CALL LIGHT IN REACH.
--- NOTE | 2019-05-20 02:30 | NUR ---
PT. RESTING QUIETLY WITH EYES CLOSED. RESPIRATIONS EVEN. NO S/S OF DISTRESS. CALL LIGHT IN REACH.
[2019-05-20 08:00] VITALS: BP 153/57
--- NOTE | 2019-05-20 08:05 | NUR ---
PT EATING BREAKFAST IN THERAPY GYM, DENIES NEEDS. WCTM.
--- NOTE | 2019-05-20 09:45 | NUR ---
PT AM MEDS ADMINISTERED. PT DENIES NEEDS. WCTM.
--- NOTE | 2019-05-20 17:26 | NUR ---
PT SITTING UP IN WHEELCHAIR EATING DINNER, DENIES NEEDS. WCTM.
--- NOTE | 2019-05-20 19:30 | NUR ---
ASSISTED PT FROM WHEELCHAIR TO BED, MINIMAL ASSIST. ALMODOVAR INTACT, URINE WNL. DRESSINGS TO LEFT HEEL AND BILAT HANDS INTACT. DENIES FURTHER NEEDS. BED IN LOW SIDE RAILS X2. CL IN REACH. A/O X4. LUNGS CLEAR. BOWEL ACTIVE X4. WILL CONTINUE TO MONITOR. BED ALARM ON
[2019-05-20 20:48] VITALS: BP 139/44
--- NOTE | 2019-05-21 02:23 | NUR ---
I have reviewed this patient and I concur with the Shift Assessment completed by the Licensed Practical Nurse today this shift.
[2019-05-21 07:48] LABS: ANION GAP 8.3 mmol/L (8-16); CALCIUM 8.6 mg/dL (8.5-10.1); CARBON DIOXIDE 33.1 mmol/L (21.0-32.0); CREATININE - SERUM 0.9 mg/dL (0.6-1.3); POTASSIUM - SERUM 3.4 mmol/L (3.5-5.1)
[2019-05-21 08:00] VITALS: BP 156/51
[2019-05-21 08:02] LABS: BASOPHILS 0.4 % (0-2); HEMATOCRIT 35.3 % (36.0-48.0); HEMOGLOBIN 10.5 g/dL (12-16); IMMATURE GRANULOCYTES 0.2 % (0-5); LYMPHOCYTES 22.3 % (15-50); MCH 25.5 pg (26.0-34.0); MCHC 29.7 g/dL (31.0-37.0); MCV 85.7 fL (80.0-100.0); MEAN PLATELET VOLUME 10.4 fL (7.4-10.4); MONOCYTES 15.1 % (2-11); PLATELET COUNT 251 10x3/uL (130-400); RBC 4.12 10x6/uL (4.00-5.40); RDW 27.8 % (11.5-14.5); WBC 11.7 10x3/uL (4.8-10.8)
--- NOTE | 2019-05-21 17:52 | NUR ---
SITTING UP IN BED WATCHING TV. JUST FINISHED SUPPER. DENIES NEEDS. STATES HER PAIN MEDS ARE EFFECTIVE. CALL LIGHT IN REACH
[2019-05-21 19:30] VITALS: BP 168/82
--- NOTE | 2019-05-21 19:30 | NUR ---
PT RESTING IN BED WITH EYES OPEN. ALERT AND ORIENTED X 3. DENIES ACUTE DISCOMFORT AT THIS TIME. NO NEEDS VOICED. AIYANA FEET ARE ELEVATED UP ON A PILLOW, AND HEEL PROTECTORS ARE IN USE. DRESSINGS TO ARMS AND L. HEEL ARE CDI. SR'S ARE UP X 2 IN BED. CALL LIGHT AND BEDSIDE TABLE ARE WITHIN EASY REACH.
--- NOTE | 2019-05-21 22:22 | NUR ---
PT IS RESTING QUIETLY IN BED WITH EYES CLOSED. RESPS ARE EVEN AND UNLABORED. NO ACUTE DISTRESS NOTED.
--- NOTE | 2019-05-22 01:40 | NUR ---
I have reviewed this patient and I concur with the Shift Assessment completed by the Licensed Practical Nurse today this shift.
--- NOTE | 2019-05-22 04:22 | NUR ---
PT LYING IN BED ON RIGHT SIDE EYES CLOSED RESTING QUIETLY. RR EVEN AND UNLABORED. CL IN REACH
[2019-05-22 08:00] VITALS: BP 138/50
--- NOTE | 2019-05-22 12:35 | NUR ---
SITTING ON SIDE OF BED IN ROOM EATING LUNCH. HAS BEEN UP AND IN HER WC MOST OF MORNING MOVING ABOUT IN HER ROOM BY HERSELF IN WC. DENIES NEEDS. CALL LIGHT IN REACH
--- NOTE | 2019-05-22 13:01 | NUR ---
SITTING SIDE OF BED WORKING HER WAY AROUND TO OTHER SIDE BY SCOOTING HER BUTTOCKS....SHE DECLINED ANY KIND OF ASST WANTING TO DO IT HER WAY...SISTER IS VISITING.
--- NOTE | 2019-05-22 16:52 | NUR ---
RESTING QUIETLY IN BED. SISTER VISITING. CALL LIGHT IN REACH
--- NOTE | 2019-05-22 19:48 | NUR ---
PT ASSISTED TO THE BATHROOM WITH MOD ASSIST. SMALL FORMED BM NOTED. MULTIPLE STAGE 2 ULCERS NOTED TO COCCYX. MEPILEX DRESSING IS OFF. SITES CLEANSED WITH WOUND CARE MINE ENGINEERING SUPERVISOR, AND NEW MEPILEX DRESSING APPLIED. DRESSINGS TO BUE CHANGED ALSO AT THIS TIME. SR'S ARE UP X 2 IN BED. CALL LIGHT AND BEDSIDE TABLE ARE WITHIN EASY REACH.
[2019-05-22 20:10] VITALS: BP 151/73
--- NOTE | 2019-05-22 21:33 | NUR ---
PT RESTING IN BED WITH EYES CLOSED.
--- NOTE | 2019-05-23 01:13 | NUR ---
I have reviewed this patient and I concur with the Shift Assessment completed by the Licensed Practical Nurse today this shift.
--- NOTE | 2019-05-23 04:29 | NUR ---
PT RESTING IN BED WITH EYES CLOSED. NO DISTRESS NOTED.
[2019-05-23 08:00] VITALS: BP 149/54
--- NOTE | 2019-05-23 08:00 | NUR ---
PATIENT IS ALERT/ORIENT. CALL LIGHT WITHIN REACH. VOICES NO NEEDS AT THIS TIME. WILL CONTINUE WITH PLAN OF CARE
--- NOTE | 2019-05-23 10:19 | NUR ---
PATIENT WASHED UP AT SINK IN ROOM. REFUSED SHOWER. LINENS ON BED CHANGED.
--- NOTE | 2019-05-23 18:09 | NUR ---
I have reviewed this patient and I concur with the Shift Assessment completed by the Licensed Practical Nurse today this shift.
--- NOTE | 2019-05-23 19:10 | NUR ---
PT IS RESTING IN BED WITH EYES OPEN. ALERT AND ORIENTED X 3. DENIES ACUTE PAIN OR DISCOMFORT AT THIS TIME. NO NEEDS VOICED. VSS. DRESSINGS ARE INTACT, BUT STARTING TO PEEL OFF. WILL CHANGE SHORTLY. SR'S ARE UP X 2 IN BED. CALL LIGHT AND BEDSIDE TABLE ARE WITHIN EASY REACH.
[2019-05-23 19:33] VITALS: BP 148/76
--- NOTE | 2019-05-23 21:00 | NUR ---
PT RESTING IN BED WITH EYES OPEN. ALL DRESSINGS CHANGED PER ORDERS EXCEPT FOR MEPILEX TO COCCYX WHICH WAS CHANGED ON DAY SHIFT. NO ACUTE DISTRESS NOTED.
--- NOTE | 2019-05-23 22:47 | NUR ---
I have reviewed this patient and I concur with the Shift Assessment completed by the Licensed Practical Nurse today this shift.
--- NOTE | 2019-05-24 01:53 | NUR ---
QUIET HOURS. PT LYING IN BED EYES CLOSED RESTING QUIETLY. RR EVEN AND UNLABORED. CL IN REACH.
[2019-05-24 06:40] LABS: ANION GAP 9.9 mmol/L (8-16); CALCIUM 8.1 mg/dL (8.5-10.1); CARBON DIOXIDE 32.2 mmol/L (21.0-32.0); CREATININE - SERUM 0.8 mg/dL (0.6-1.3); POTASSIUM - SERUM 3.1 mmol/L (3.5-5.1)
[2019-05-24 07:33] LABS: BASOPHILS 0.4 % (0-2); EOSINOPHILS 2.6 % (0-7); HEMATOCRIT 30.9 % (36.0-48.0); HEMOGLOBIN 9.5 g/dL (12-16); IMMATURE GRANULOCYTES 0.2 % (0-5); LYMPHOCYTES 21.6 % (15-50); MCHC 30.7 g/dL (31.0-37.0); MCV 84.4 fL (80.0-100.0); MONOCYTES 16.4 % (2-11); NEUTROPHILS 58.8 % (40-80); PLATELET COUNT 217 10x3/uL (130-400); RBC 3.66 10x6/uL (4.00-5.40); RDW 27.7 % (11.5-14.5); WBC 12.6 10x3/uL (4.8-10.8)
--- NOTE | 2019-05-24 08:00 | NUR ---
PT RESTING IN BED WITH EYES OPEN CALL LIGHT IN REACH NO PROBLEMS WILL MONITER
[2019-05-24 13:13] VITALS: BP 134/57
--- NOTE | 2019-05-24 14:16 | NUR ---
Nutrition Follow-up: Diet: Diabetic + Glucerna TID and Jac BID PO intake: ~69% average x last 9 meals. Reports appetite is "alright." States that she is drinking Glucerna but does not like the Jac and is not drinking it. She requested that I remove it from meal trays. Last BM: 05/24/19. WT: 212# (05/13/19), no new wt Meds noted: Januvia, bumex, SSI. Labs noted: Glu 112, K 3.1 (on replacement protocol per MD notes). "Multiple stage II PU and open areas" per wound care notes. Continue current diet and Glucerna with meals. Will discontinue Jac per request. RD following.
--- NOTE | 2019-05-24 15:15 | NUR ---
PT RESTING IN BED WITH EYES OPEN CALL LIGHT IN REACH NO PROBLEMS WILL MONITER
[2019-05-24 19:25] VITALS: BP 141/77
--- NOTE | 2019-05-24 19:32 | NUR ---
PT IS RESTING IN BED WITH EYES CLOSED. NO ACUTE DISTRESS NOTED. ALMODOVAR CATH PATENT AND DRAINING TO A GRAVITY BAG. BLADDER TRAINING IN PROGRESS. DRESSINGS ARE CDI. SR'S ARE UP X 2 IN BED. CALL LIGHT AND BEDSIDE TABLE ARE WITHIN EASY REACH.
--- NOTE | 2019-05-24 22:08 | NUR ---
RESTING IN BED WITH EYES CLOSED.
--- NOTE | 2019-05-25 01:37 | NUR ---
I have reviewed this patient and I concur with the Shift Assessment completed by the Licensed Practical Nurse today this shift.
--- NOTE | 2019-05-25 04:29 | NUR ---
PT IS RESTING IN BED WITH EYES CLOSED.
[2019-05-25 08:00] VITALS: BP 120/47
--- NOTE | 2019-05-25 08:00 | NUR ---
SHIFT ASSMT COMPLETED.BREAKFAST TRAY GIVEN.CL IN REACH.SITTING UP IN WC.
--- NOTE | 2019-05-25 10:51 | NUR ---
CARE TEAM MEETING: PATIENT ATTENDED MEETING. HER QUESTIONS AND CONCERNS WERE ADDRESSED. PATIENT DISCHARGE PLANS ARE FOR HER TO RETURN TO HER HOME. TENATIVE DSICHARGE DATE IS 05/28/19. WILL CONTINUE TO FOLLOW WITH PATIENT.
--- NOTE | 2019-05-25 12:00 | NUR ---
EATING LUNCH.CL IN REACH.NIRALI Q2H BLADDER TRAINING.
--- NOTE | 2019-05-25 16:00 | NUR ---
WILL COTINUE TO MONITOR.
[2019-05-25 19:40] VITALS: BP 135/48
--- NOTE | 2019-05-25 19:45 | NUR ---
PATIENT RECEIVED SITTING UP IN BED. ASSESSMENT & VITAL SIGNS DONE. NO C/O PAIN OR DISTRESS. BLADDER TRAINING CONTINUES. DRESSING C/D/I. BED LOW. CALL LIGHT WITHIN REACH. WILL CONTINUE TO MONITOR.
--- NOTE | 2019-05-25 22:00 | NUR ---
PATIENT DRESSINGS CHANGED TO LEFT & RIGHT UPPER HAND & UPPER LEFT FOREARM. WOUNDS HAD RED TISSUE, NO ODOR NOTED. WILL CONTINUE TO MONITOR.
--- NOTE | 2019-05-26 03:57 | NUR ---
I have reviewed this patient and I concur with the Shift Assessment completed by the Licensed Practical Nurse today this shift.
[2019-05-26 06:54] LABS: BASOPHILS 0.2 % (0-2); EOSINOPHILS 3.3 % (0-7); HEMATOCRIT 30.5 % (36.0-48.0); HEMOGLOBIN 9.4 g/dL (12-16); IMMATURE GRANULOCYTES 0.2 % (0-5); LYMPHOCYTES 23.5 % (15-50); MCHC 30.8 g/dL (31.0-37.0); MCV 84.3 fL (80.0-100.0); MEAN PLATELET VOLUME 10.2 fL (7.4-10.4); MONOCYTES 16.5 % (2-11); NEUTROPHILS 56.3 % (40-80); PLATELET COUNT 209 10x3/uL (130-400); RBC 3.62 10x6/uL (4.00-5.40); RDW 27.7 % (11.5-14.5); WBC 12.6 10x3/uL (4.8-10.8)
[2019-05-26 07:00] LABS: CALC OSMOLALITY 281 mosm/kg (275-300); CALCIUM 8.4 mg/dL (8.5-10.1); CARBON DIOXIDE 28.8 mmol/L (21.0-32.0); CHLORIDE - SERUM 105 mmol/L (98-107); CREATININE - SERUM 0.7 mg/dL (0.6-1.3); GLUCOSE 99 mg/dL (74-106); SODIUM 142 mmol/L (136-145); UREA NITROGEN 9 mg/dL (7-18); eGFR NON AFRICAN AMERICAN 87 mL/min (90-120)
[2019-05-26 08:00] VITALS: BP 107/63
--- NOTE | 2019-05-26 08:00 | NUR ---
SHIFT ASSMT COMPLETED.BREAKFAST GIVEN.UP IN WC AT BEDSIDE.CL IN REACH.
--- NOTE | 2019-05-26 09:05 | NUR ---
CAUGHT PT COMING BACK FROM BATHROOM,DRESSED AND SLIP RESISTANT SOCKS ON.NOTED PULSE OX CK WAS 156 ON PULSE.LISTENED WITH STETHESCOPE AND NOTED A TRUE READING.LASTED ONLY FEW SECS AND AUSCULTAED WHEN RETURNED TO 67;72.PULSE IS IRREGULAR.MEDS GIVEN.
--- NOTE | 2019-05-26 12:00 | NUR ---
SITTING UP EATING LUNCH.PULSE 74
--- NOTE | 2019-05-26 16:00 | NUR ---
UP OOB TO WC TAKEN TO BATHROOM.
[2019-05-26 20:12] VITALS: BP 115/51
--- NOTE | 2019-05-26 20:13 | NUR ---
PATIENT RECEIVED SITTING UP IN BED. ASSESSMENT & VITAL SIGNS DONE. PATIENT HEART RATE ELEVATED NOW EARLIER TODAY. WILL TO MONITOR APICAL HEARTRATE. PATIENT BLADDER TRAINING CONTINUES. BED LOW. ALARM ON. WILL CONTINUE TO MOJNITOR.
--- NOTE | 2019-05-26 23:31 | NUR ---
I have reviewed this patient and I concur with the Shift Assessment completed by the Licensed Practical Nurse today this shift.
--- NOTE | 2019-05-27 01:00 | NUR ---
PATIENT APICAL PULSE 60. NO SOB OR DISTRESS. CALL LIGHT WITHIN REACH. WILL CONTINUE TO MONITOR.
--- NOTE | 2019-05-27 03:00 | NUR ---
PATIENT EYES CLOSED. RESPIRATIONS 18 & EVEN. BED LOW. CALL LIGHT WITHIN REACH. WILL CONTINUE TO MONITOR.
--- NOTE | 2019-05-27 06:45 | NUR ---
PATIENT NISHI TURNER'Bladimir. PATIENT TOLERATED IT WELL. CALL LIGHT WITHIN REACH. WILL CONTINUE TO MONITOR
[2019-05-27 06:54] LABS: CALC OSMOLALITY 280 mosm/kg (275-300); CALCIUM 8.6 mg/dL (8.5-10.1); CARBON DIOXIDE 30.7 mmol/L (21.0-32.0); CHLORIDE - SERUM 105 mmol/L (98-107); CREATININE - SERUM 0.7 mg/dL (0.6-1.3); DIGOXIN 0.72 ng/mL (0.90-2.00); GLUCOSE 110 mg/dL (74-106); SODIUM 141 mmol/L (136-145); UREA NITROGEN 11 mg/dL (7-18); eGFR NON AFRICAN AMERICAN 87 mL/min (90-120)
--- NOTE | 2019-05-27 07:57 | NUR ---
PT EATING BREAKFAST IN THERAPY GYM, DENIES NEEDS. WCTM.
[2019-05-27 08:00] VITALS: BP 140/49
--- NOTE | 2019-05-27 12:00 | NUR ---
order was faxed to [facility] for a rolling walker per patient request.
--- NOTE | 2019-05-27 13:00 | NUR ---
[facility] DOES NOT ACCEPT PATIENT INSURANCE, ORDER FAXED TO [facility] FOR A ROLLING WALKER
--- NOTE | 2019-05-27 14:25 | NUR ---
CLINICAL UPDATES FAXED TO [facility] AT , AUTH. # [id number] WITH TEATIVE DISCHARGE DATE OF 05/28/19.
--- NOTE | 2019-05-27 14:57 | NUR ---
Nutrition Follow-up: Diet: Diabetic + Glucerna with meals PO intake: ~75% average x last 9 meals Last BM: 05/26/19 x 2. WT: 212# (05/13/19), no new wt. Meds noted: benita fisher. Labs noted: Glu 110. Skin: PU to L/R heels, buttocks (per nursing skin assessment) Continue current nutrition regimen. RD following.
--- NOTE | 2019-05-27 16:50 | NUR ---
PT EATING DINNER, DENIES NEEDS. WCTM.
[2019-05-27 20:00] VITALS: BP 150/49
--- NOTE | 2019-05-27 20:00 | NUR ---
PATIENT RECEIVED SITTING UP IN BED. ASSESSMENT & VITAL SIGNS DONE. NO C/O PAIN OR DISTRESS. WOUND DRESSINGS X 3 CHANGED TO BILATERAL HANDS & LEFT FOREARM. BED LOW. PATIENT URINATION STREAM STRONG WITH YELLOW URINE. CALL LIGHT WITHIN REACH. WILL CONTINUE TO MONITOR.
--- NOTE | 2019-05-28 02:17 | NUR ---
I have reviewed this patient and I concur with the Shift Assessment completed by the Licensed Practical Nurse today this shift.
--- NOTE | 2019-05-28 02:56 | NUR ---
PATIENT EYES CLOSED. RESPIRATIONS 18 & EVEN. BED LOW. CALL LIGHT WITHIN REACH. WILL CONTINUE TO MONITOR.
[2019-05-28] MEDS ORDERED: K-DUR20 MEQ PO (08:36)
[2019-05-28] MEDS ORDERED: BUMEX2 MG PO (08:36)
[2019-05-28] MEDS ORDERED: NORCO-7.5 PO (08:36)
--- NOTE | 2019-05-28 09:56 | NUR ---
PATIENT DISCHARGING HOME TODAY WITH FAMILY. [facility] WILL PROVIDE THERAPY AT HOME. [facility] WILL DELIVER A ROLLING WALKER. DR. CARLSON 06/07/19 @ 11:00. DR. MENA OFFICE WILL CALL PATIENT WITH A 2 WEEK FOLLOW UP APPOINTMENT. PATIENT CHOICE FORM WITH [employer] DATA FOR HOME HEALTH REVIEWED WITH PATIENT AND SISTER. THEY VOICED UNDERSTANDING. [facility] FORM SIGNED, COPY GIVEN TO PATIENT. DISCHARGE INSTRUCTIONS FAXED TO PCP, HOME HEALTH AND REVIEWED WITH PATIENT AND SISTER.
--- NOTE | 2019-05-28 10:17 | NUR ---
JASMIN FROM [facility] CALLED WITH CONTINUE STAY FOR PATIENT FROM 05/19/19 TO 05/28/19 WITH AUTH. # [id number].
--- NOTE | 2019-05-28 12:51 | NUR ---
PT DISCHARGE INSTRUCTIONS REV'D AND PT ADN FAMILY STATE UNDEDRSTANDING. PT ESCORTED OUT VIA WHEELCHAIR AND ASSISTED INTO VEHICLE BY HOSPITAL STAFF. PT DISCHARGING HOME WITH FAMILY AT THIS TIME.
--- NOTE | 2019-05-28 13:06 | NUR ---
DISCHARGE CLINICALS FAXED TO [facility] AT , AUTH. #[id number] WITH CONFORMATION RECIEVED
== END 2019-05-28 12:51 | disposition home health service (06) | DRG 92 ==
LOC: D.REHAB 16:13
PROVIDERS: ADMIT Emergency Medicine; ATTEND Emergency Medicine
DX: G72.89 Other specified myopathies (principal); E46 Unspecified protein-calorie malnutrition; L88 Pyoderma gangrenosum; I82.409 Acute embolism and thrombosis of unspecified deep veins of unspecified lower extremity; D62 Acute posthemorrhagic anemia; L97.422 Non-pressure chronic ulcer of left heel and midfoot with fat layer exposed; K25.9 Gastric ulcer, unspecified as acute or chronic, without hemorrhage or perforation; Z79.01 Long term (current) use of anticoagulants; E87.6 Hypokalemia; E11.649 Type 2 diabetes mellitus with hypoglycemia without coma; M19.90 Unspecified osteoarthritis, unspecified site; R10.9 Unspecified abdominal pain; I73.9 Peripheral vascular disease, unspecified; R53.83 Other fatigue; R53.1 Weakness; B95.8 Unspecified staphylococcus as the cause of diseases classified elsewhere; K21.0 Gastro-esophageal reflux disease with esophagitis; D72.829 Elevated white blood cell count, unspecified; I10 Essential (primary) hypertension; E87.5 Hyperkalemia

== ENCOUNTER 2019-06-01 19:58 | Inpatient (IN) | payer MEDICARE, MEDICAID ==
[~2019-06-01] VITALS: Ht 167.6 cm; Wt 90.9 kg
[2019-06-01] VITALS (13 sets, daily range): BP systolic 63–134; BP diastolic 34–73
[~2019-06-01 19:58] MED LIST changes: +K-DUR20 MEQ PO
--- NOTE | 2019-06-01 20:10 | NUR ---
UNABLE TO OBTAIN IV ACESS THIS NURSE AND CHARGE NURSE BOTH ATTEMPTED 2 IVS. PLACED IN TRENDELENBERG POSITION. ALERTTED MD. SET UP FOR CVL. AND ASSISTED MD WITH PROCEDURE
[2019-06-01 21:04] LABS: APPEARANCE CLEAR (CLEAR); COLOR YELLOW (YELLOW)
[2019-06-01 21:05] LABS: BILIRUBIN NEGATIVE (NEGATIVE); GLUCOSE NEGATIVE (NEGATIVE); KETONE NEGATIVE (NEGATIVE); NITRITE NEGATIVE (NEGATIVE); PROTEIN TRACE mg/dL (NEGATIVE); UROBILINOGEN NORMAL (NORMAL)
[2019-06-01 21:06] LABS: BACTERIA MANY /hpf (NEGATIVE); EPITHELIAL CELLS 0-5 /hpf (0-5); RED CELLS - URINE 0-5 /hpf (0-5)
[2019-06-01 21:51] LABS: HEMATOCRIT 39.5 % (36.0-48.0); MCH 27.1 pg (26.0-34.0); MCHC 30.4 g/dL (31.0-37.0); MCV 89.4 fL (80.0-100.0); PLATELET COUNT 128 10x3/uL (130-400); RBC 4.42 10x6/uL (4.00-5.40); RDW 26.7 % (11.5-14.5); WBC 35.7 10x3/uL (4.8-10.8)
[2019-06-01 22:11] LABS: ALKALINE PHOSPHATASE 437 U/L (46-116); ALT (SGPT) 768 U/L (10-68); BILIRUBIN - TOTAL 1.18 mg/dL (0.2-1.3); CALCIUM 9.8 mg/dL (8.5-10.1); CARBON DIOXIDE 14.9 mmol/L (21.0-32.0); CHLORIDE - SERUM 95 mmol/L (98-107); CKMB 2.1 U/L (0.0-3.6); CREATINE KINASE 375 UL (21-215); CREATININE - SERUM 1.8 mg/dL (0.6-1.3); POTASSIUM - SERUM 4.4 mmol/L (3.5-5.1); PROTEIN - SERUM 8.3 g/dL (6.4-8.2); SODIUM 137 mmol/L (136-145); TROPONIN-I 0.051 ng/mL (0.000-0.060); UREA NITROGEN 30 mg/dL (7-18); eGFR NON AFRICAN AMERICAN 29 mL/min (90-120)
[2019-06-01 22:13] LABS: CALC OSMOLALITY 276 mosm/kg (275-300)
[2019-06-01 22:14] LABS: GLUCOSE 36 mg/dL (74-106)
[2019-06-01 22:24] LABS: LYMPHOCYTES 18 % (15-50); MONOCYTES 6 % (2-11); NEUTROPHILS 68 % (40-80); PLATELET ESTIMATE NORMAL
--- NOTE | 2019-06-01 23:16 | NUR ---
PT HAD LARGE BM. FULL BED CHANGE WITH PERICARE.
--- NOTE | 2019-06-01 23:17 | NUR ---
WHILE PERFORMING PERICARE, MULTIPLE PRESSURE WOUNDS NOTED ON COCCYX AND GLUTEAL FOLD
--- NOTE | 2019-06-02 00:20 | NUR ---
REC'D PT FROM ED, ASSISTED INTO ICU BED, MONITORS HOOKED UP AND WORKING, PT AWAKE AND ALERT, WILL CONTINUE TO OBSERVE.
[2019-06-02 00:27] VITALS: BP 83/48; Ht 167.6 cm; Wt 90.9 kg
--- NOTE | 2019-06-02 01:42 | NUR ---
RHYTHM CHANGE NOTED, CODE BLUE CALLED. SEE CODE BLUE SHEET FOR FURTHER DETAILS.
--- NOTE | 2019-06-02 02:31 | NUR ---
ROLLER REPAIRER NOTIFIED OF PT
--- NOTE | 2019-06-02 02:36 | NUR ---
YOEL NOTIFIED OF PT
--- NOTE | 2019-06-02 02:44 | NUR ---
HOME NOTIFIED OF PT
--- NOTE | 2019-06-02 03:45 | NUR ---
HOME HERE FOR PT
[2019-06-07 15:09] LABS: AEROBE ID Final report (()); RESULT 1 Escherichia coli (())
== END 2019-06-02 02:28 | DRG 871 ==
LOC: D.ER 19:58 → D.ICU 23:34
PROVIDERS: Family Medicine; ADMIT Family Medicine; ATTEND Family Medicine
PROC: 05HM33Z Insertion of Infusion Device into Right Internal Jugular Vein, Percutaneous Approach (ICD-10-PCS; 2019-06-01)
PROC: 0BH17EZ Insertion of Endotracheal Airway into Trachea, Via Natural or Artificial Opening (ICD-10-PCS; principal; 2019-06-02)
PROC: 5A1935Z Respiratory Ventilation, Less than 24 Consecutive Hours (ICD-10-PCS; 2019-06-02)
DX: A41.9 Sepsis, unspecified organism (principal); R40.2121 Coma scale, eyes open, to pain, in the field [EMT or ambulance]; R65.21 Severe sepsis with septic shock; N39.0 Urinary tract infection, site not specified; N17.9 Acute kidney failure, unspecified; E87.2 Acidosis; I48.91 Unspecified atrial fibrillation; I10 Essential (primary) hypertension; E87.6 Hypokalemia; K21.9 Gastro-esophageal reflux disease without esophagitis; I46.9 Cardiac arrest, cause unspecified; E11.649 Type 2 diabetes mellitus with hypoglycemia without coma; M19.90 Unspecified osteoarthritis, unspecified site; I73.9 Peripheral vascular disease, unspecified; I95.9 Hypotension, unspecified; Z79.01 Long term (current) use of anticoagulants; L89.159 Pressure ulcer of sacral region, unspecified stage; R40.2351 Coma scale, best motor response, localizes pain, in the field [EMT or ambulance]; R40.2241 Coma scale, best verbal response, confused conversation, in the field [EMT or ambulance]; R65.20 Severe sepsis without septic shock; R40.2361 Coma scale, best motor response, obeys commands, in the field [EMT or ambulance]; R40.2251 Coma scale, best verbal response, oriented, in the field [EMT or ambulance]